=== PATIENT | female | born 1970 | race Caucasian/White ===

== ENCOUNTER → 2018-11-12 10:14 | Outpatient (CLI) | payer MEDICARE, SELFPAY ==
[2018-11-12 10:16] LABS: MANUAL DIFFERENTIAL MANUAL DIFFERENTIAL (MANUAL DIFF)
[2018-11-12 10:50] LABS: Basophils # 0.1 K/mm3 (0-0.2); Basophils % 0.9 % (0.1-2.0); Eosinophils # 0.1 K/mm3 (0.0-0.4); Eosinophils % 2.2 % (0.1-12.0); Hematocrit 38.9 % (37.0-47.0); Hemoglobin 12.3 g/dL (12.2-16.2); Lymphocytes # 1.4 K/mm3 (0.7-4.5); Lymphocytes % 24.7 % (10-50); Mean Corpuscular HGB Conc 31.7 g/dL (31.8-35.4); Mean Corpuscular Hemoglobin 31.3 pg (27.0-31.2); Mean Corpuscular Volume 98.7 fl (81-99); Monocytes # 0.4 K/mm3 (0.1-1.0); Monocytes % 6.4 % (1.7-9.3); Neutrophils # 3.8 K/mm3 (1.8-7.8); Neutrophils % 65.9 % (37.0-80.0); Platelet Count 312 K/mm3 (142-424); Red Blood Count 3.94 M/mm3 (4.20-5.40); Red Cell Distribution Width 13.1 % (11.5-17.5); White Blood Count 5.7 K/mm3 (4.8-10.8)
[2018-11-12 12:32] LABS: Thyroid Stimulating Hormone 1.54 uIU/ml (0.358-3.740)
[2018-11-12 13:21] LABS: Eosinophils % 1 % (0-3); Lymphocytes % 32 % (10-50); Monocytes % 5 % (2-9); Neutrophils % 60 % (42-76); Platelet Estimate Normal; RBC Morphology Normal; Total Cells Counted 100
== END ==
PROVIDERS: Visit Provider Obstetrics & Gynecology
DX: N93.8 Other specified abnormal uterine and vaginal bleeding (principal); R63.5 Abnormal weight gain
CPT/HCPCS: 36415; 84443; 85007; 85014; 85018; 85048; 85049

== ENCOUNTER → 2018-11-20 13:32 | Outpatient (CLI) | payer MEDICARE, SELFPAY ==
--- NOTE | 2018-11-20 13:34 | US_ITS ---
US transvaginal HISTORY: Dysfunctional uterine bleeding with cramping and pelvic pain ITS.REASON: dub ORDERING PHYSICIAN: Drew Morillo MD PATIENT AGE: 48 years Comparison: None FINDINGS: The uterus is retroverted and measures 9 x 5 x 6 cm. There are multiple nabothian cysts present. Combined and medial thickness is 8 mm. There is an area of heterogeneous echogenicity involving the anterior aspect of the uterus at 2.4 x 1.7 cm. An additional 2.2 x 1.7 cm area of decreased echogenicity is present involving the posterior aspect of the uterus. These areas are consistent with fibroids. The right ovary is 2.6 x 2 x 2.3 cm and has an unremarkable appearance. The left ovary is 0.7 x 3 x 0.8 cm and contains a 3.5 cm cyst. There is blood flow within both ovaries. No cul-de-sac fluid apparent. IMPRESSION: 1. Retroverted uterus containing 2 fibroids 2. 3.5 cm left ovarian cyst
== END ==
PROVIDERS: PCP Physician Assistant; Visit Provider Obstetrics & Gynecology
DX: N93.8 Other specified abnormal uterine and vaginal bleeding (principal)
CPT/HCPCS: 76830

== ENCOUNTER → 2020-03-18 14:56 | Outpatient (CLI) | payer MEDICARE, SELFPAY ==
--- NOTE | 2020-03-18 14:56 | MM_ITS ---
PROCEDURE: MM DIG SCREENING MAMM BI W/CAD Referring Doctor: Jagdeep Martínez Patient Age:49Y CLINICAL INDICATION: Routine Screening Mammogram 49-year-old Previous breast lift procedure bilateral-scars towards inferior breast and periareolar regions. No hormones no new complaints. Family history: Maternal grandmother and maternal great grandmother with breast cancer COMPARISON: MG Screening-Bilateral Mammography from 11/25/2018 outside mammogram [facility] TECHNIQUE: Standard CC and MLO images were obtained. R2 CAD reviewed. Bilateral digital breast tomosynthesis included. FINDINGS: Outside films from [place] or finally available in PACS for comparison A [id number] residual fibroglandular elements but mild asymmetry. Slightly nodular character of the underlying fibroglandular elements again observed. Right breast Right MLO view there is a new area of density seen inferior lateral-this is nicely seen on MLO and tomosynthesis image 28 axial 29 Small benign calcification grouping likely at skin upper-outer quadrant right breast Left breast None mm 9 mm ovoid density retroareolar region on MLO view is less evident on tomosynthesis view but I believe there is a density here either at the central breast or lateral breast on CC image set Recommend bilateral breast ultrasound and bilateral cc MLO spot views and full 90 degree view of breast on left to further evaluate these densities IMPRESSION: Recommend additional views bilaterally. Bilateral breast ultrasound with spot views bilateral Questionable areas of increasing nodularity in both right and left breast; which appear slight more evident on today's studies than previous available outside studies BI-RAD Category: 0 Need Additional Imaging Evaluation FOLLOW-UP: IMM Immediate Follow-up Recommended (A letter has been sent to the patient regarding results of the study.) Dictated by: Hoang Levine MD 04/07/2020 11:11 Hoang Levine MD in [place] 04/07/2020 11:11
--- NOTE | 2020-03-18 14:56 | US_ITS ---
PROCEDURE: US TRANSVAGINAL CLINICAL INDICATION: LLQP and cyst on left ovary COMPARISON: US TRANVAG US transvaginal from 11/20/2018 FINDINGS: UTERUS: 9cm x 6cmx 6cm with a combined endometrial thickness of 5.6mm LEFT OVARY: [id number] with a volume of 15ml. RIGHT OVARY: [id number] with a volume of 5.1ml. The uterus is retroverted. There is a hypoechoic area in the dorsal aspect of the uterus at the body of the uterus measuring 2.2 x 1.3 cm consistent with a fibroid not significantly changed. There is a hypoechoic area measuring 1.9 cm along the anterior aspect of the body of the uterus consistent with a fibroid. A hyperechoic area present in the anterior uterus at 3.7 cm also consistent with a fibroid. There is a 18 mm left ovarian cyst and a 12 mm right ovarian cyst which has a collapsed appearance. No cul-de-sac fluid evident. There are multiple nabothian cysts. IMPRESSION: Retroverted uterus with uterine fibroids and small bilateral ovarian cysts Dictated by: Matt Kimbrough MD 03/18/2020 18:11 Matt Kimbrough MD in [place] 03/18/2020 18:11
== END ==
PROVIDERS: PCP Physician Assistant; Visit Provider Nurse Practitioner Obstetrics & Gynecology
DX: Z12.31 Encounter for screening mammogram for malignant neoplasm of breast (principal); N83.202 Unspecified ovarian cyst, left side; R10.32 Left lower quadrant pain
CPT/HCPCS: 76830; 77063; 77067

== ENCOUNTER → 2020-04-19 14:31 | Outpatient (CLI) | payer MEDICARE, SELFPAY ==
--- NOTE | 2020-04-19 14:31 | MM_ITS ---
PROCEDURE: MM DIG MAMM BI DX W/CAD Digital Breast Tomosynthesis Included CLINICAL INDICATION: abnormal xmg COMPARISON: US TRANVAG US transvaginal from 11/20/2018 MG Screening-Bilateral Mammography from 11/25/2018 MG MM DIG SCREENING MAMM BI W/CAD from 03/18/2020 US US BREAST RT COMPLETE from 04/19/2020 US US BREAST LT COMPLETE from 04/19/2020 TECHNIQUE: Degree lateral views were obtained of the right breast along with spot compression MLO and CC views. Similar spot compression views in the MLO and CC projection were obtained of the left breast.. FINDINGS: The linear opacity right breast does not completely press out most likely represents a postsurgical scarring in view of history of the patient's previous surgical procedure. Ultrasound performed the same date showed no abnormality at this location. Additional views left breast suggest minimal postsurgical scarring near the nipple. Ultrasound examination shows couple of small cystic structures and postsurgical scarring near the nipple. IMPRESSION: Essentially benign findings consistent with patient's previous surgical procedures recommend the patient continue with yearly screening mammography BI-RAD Category: 2 Benign Finding(s) FOLLOW-UP: 1YR 1 Year Follow-up (A letter has been sent to the patient regarding results of the study.) Dictated by: Dr. Stuart Saul MD 05/03/2020 09:04 Dr. Stuart Saul MD in [place] 05/03/2020 09:04
--- NOTE | 2020-04-19 14:31 | US_ITS ---
PROCEDURE: US BREAST LT COMPLETE CLINICAL INDICATION: abnormal findings of imaging of the breast COMPARISON: Ultrasound right breast same date FINDINGS: There are small hypoechoic areas near the nipple which have the appearance of postsurgical scarring and corresponds in location to the visible postsurgical scar.. In addition there are couple of benign-appearing cystic lesions at the 6 o'clock position near the nipple. There are couple normal appearing nodes in the axilla. IMPRESSION: Benign postsurgical scarring along with couple tiny benign-appearing cysts and recommend the patient continue with yearly screening mammography Dictated by: Dr. Stuart Saul MD 05/03/2020 09:13 Dr. Stuart Saul MD in [place] 05/03/2020 09:13
--- NOTE | 2020-04-19 14:31 | US_ITS ---
PROCEDURE: US BREAST RT COMPLETE CLINICAL INDICATION: abnormal findings of imaging of the breast COMPARISON: US US BREAST LT COMPLETE from 04/19/2020 FINDINGS: There is a somewhat linear area of decreased echogenicity near the nipple at the 6 o'clock position and likely the location of the linear density on recent mammogram this likely represents postsurgical scarring. No other abnormality is seen in the circumareolar location. There are couple normal appearing nodes in the axilla. IMPRESSION: Minimal postsurgical scarring, no suspicious cystic or solid lesions seen recommend the patient continue with yearly screening mammography Dictated by: Dr. Stuart Saul MD 05/03/2020 09:09 Dr. Stuart Saul MD in [place] 05/03/2020 09:09
== END ==
PROVIDERS: PCP Physician Assistant; Visit Provider Nurse Practitioner Obstetrics & Gynecology
DX: R92.8 Other abnormal and inconclusive findings on diagnostic imaging of breast (principal)
CPT/HCPCS: 76641; 77062; 77066; G0279

== ENCOUNTER → 2020-07-03 10:11 | Outpatient (CLI) | payer MEDICARE, SELFPAY ==
[2020-07-03 12:34] LABS: Coronavirus 19 IgG Antibody Negative (Negative); Coronavirus 19 IgM Antibody Negative (Negative)
== END ==
PROVIDERS: Visit Provider Internal Medicine Gastroenterology
DX: Z01.812 Encounter for preprocedural laboratory examination (principal); Z20.822 Contact with and (suspected) exposure to COVID-19; Z12.11 Encounter for screening for malignant neoplasm of colon
CPT/HCPCS: 36415; 86328

== ENCOUNTER 2020-07-05 08:04 | Day surgery (SDC) | payer MEDICARE, SELFPAY ==
[2020-06-30 11:26] VITALS: BMI 35.2
[2020-07-05 08:47] VITALS: BP 165/89; PULSE 85; RESP 18; TEMP 36.7; O2SAT 98
[2020-07-05 09:11] LABS: Urine Pregnancy, HCG Qual. Negative (Negative)
[2020-07-05 09:30] VITALS: O2SAT 97
--- NOTE | 2020-07-05 10:02 | P.PCN_ITS ---
[facility] Procedure Note Procedure Note:: Colonoscopy Procedure Report: Colonoscopy with cold biopsies and cold snare polypectomy Endoscopist: Terell Sanchez II, MD Referring physician: Kayla Fowler PA-C/Jagdeep Martínez MD Date of Procedure: July 05, 2020 Equipment: Olympus 180 variable stiffness pediatric colonoscope Sedation: MAC sedation Indication: Mrs. Maya is a 49-year-old female who is here for initial screening colonoscopy. She reports no abdominal pain, weight loss, change in her bowel habits or rectal bleeding. She reports no family history of colon cancer. She does suspect that her mother has ulcerative colitis. Procedure: Prior to the procedure, a history and physical exam was performed, and patient's medications and allergies were reviewed. The risks, benefits and alternatives of the sedation and procedure were discussed with the patient. All questions were answered and informed consent was obtained. The patient was brought to the procedure room. Patient identification and proposed procedure were verified by the physician and the nurse. The patient was placed in a left lateral decubitus position and the scope was passed under direct vision. Throughout the procedure, the patient's blood pressure, pulse, and oxygen saturations were monitored continuously. The colonoscopy was accomplished without difficulty. The patient tolerated the procedure well. Findings: On digital rectal examination there was normal rectal tone. There were no external hemorrhoids. The colonoscope was introduced through the anal canal to the rectum and advanced to the cecum. The ileocecal valve and appendiceal orifice were identified. The scope was advanced a short distance into the ileum which appeared grossly normal. The scope was then withdrawn into the colon. The cecum had some superficial ulceration and cold biopsies were obtained. This appeared to be secondary to NSAIDs. There was a flat 8 to 9 mm polyp in the ascending colon removed via cold snare polypectomy. There were scattered diverticuli throughout the descending and sigmoid colon (LEFT colon). The rectum itself was normal. Upon retroflexion within the rectum there were grade 1-2 internal hemorrhoids. The preparation was excellent throughout with [place] Preparation Score of 9. The cecal time was 12 minutes. Impression: 1. Ascending colon polyp (8 to 9 mm?probable serrated adenoma) 2. Cecal superficial ulceration?rule out NSAIDs 3. Left-sided diverticulosis 4. Grade 1-2 internal hemorrhoids Plan: This polyp was a serrated adenoma and I will recommend repeat surveillance in 5 years. I will inquire about NSAID use. I would encourage bulk fiber supplementation on a maintenance basis.
[2020-07-05 10:03] VITALS: BP 99/57; PULSE 67; RESP 18; TEMP 36.3; O2SAT 95
[2020-07-05 10:13] VITALS: BP 106/65; PULSE 76; RESP 18; O2SAT 99
[2020-07-05 10:23] VITALS: BP 103/77; PULSE 72; RESP 18; O2SAT 99
--- NOTE | 2020-07-05 10:46 | HMH.ANESCL ---
[facility] Anesthesia Checklist - Patient Identification Patient Identification: Arm Band - Structural Data Admitted From: Home Planned Operative Procedure/s: colonoscopy Consent for Planned Operative Procedure(s) Verified: Yes Verified Documents: Surgical Consent, History and Physical - NPO Status Verified Time NPO: 00:00 - Additional verifications Anesthesia Reactions: No - Airway Assessment C-Spine Mobility Assessed: Yes (mp2) TMJ Mobility Assessed: Yes Dentition: Good Dentition - Neurological Assessment Level of Consciousness: Awake, Alert - Anesthesia Plan Anesthesia Risk discussed: Yes Anesthesia Plan: Verified ASA Class: II Anesthesia Type: MAC [facility] History I have reviewed the patient's past medical history: Yes Medical History: Reports:: Anxiety, Gastroesophageal Reflux Disease(GERD), Hypertension Denies:: Cancer, Diabetes Mellitus Type 1, Diabetes Mellitus Type 2, Internal Pacemaker, MRSA, Seizures *Have you ever received a pneumonia vaccine?: No *Have you received a flu vaccine this season?: Yes Other Medical History: Reports: Arthritis Anesthesia experience/problems:: nac Laterality Cases: Bilateral: Total Hip Replacement Other Surgeries: Yes: Cholecystectomy, , Tubal Ligation. No: Pacemaker Amputation: No Fractures: No - *Social History Last grade of school completed: Some college Smoking Status: Never smoker Alcohol Intake: never Alcohol Intake Frequency:: other Substance Use Type: denies use *Occupational Status:: unemployed Housing: house Household Members: family *Travel in the last 8 weeks: None Family Hx:: No significant family history
[2020-07-05 10:54] VITALS: BP 113/72; PULSE 64; RESP 18; O2SAT 97
== END 2020-07-05 10:55 | disposition home or self-care (01) ==
LOC: OUTP 08:06
PROVIDERS: PCP Physician Assistant; Visit Provider Internal Medicine Gastroenterology
PROC: 0DJD8ZZ Inspection of Lower Intestinal Tract, Via Natural or Artificial Opening Endoscopic (ICD-10-PCS; CPT 45378; principal; 2020-07-05 09:30)
DX: Z12.11 Encounter for screening for malignant neoplasm of colon (principal); K63.5 Polyp of colon; K63.3 Ulcer of intestine; K57.30 Diverticulosis of large intestine without perforation or abscess without bleeding; K64.0 First degree hemorrhoids; I10 Essential (primary) hypertension; K21.9 Gastro-esophageal reflux disease without esophagitis; F41.9 Anxiety disorder, unspecified; M19.90 Unspecified osteoarthritis, unspecified site; Z88.6 Allergy status to analgesic agent; Z88.8 Allergy status to other drugs, medicaments and biological substances; Z79.899 Other long term (current) drug therapy
CPT/HCPCS: 45380; 45385; 81025; 88305

== ENCOUNTER → 2021-09-28 12:49 | Outpatient (CLI) | payer MEDICARE, SELFPAY ==
--- NOTE | 2021-09-28 12:56 | XR_ITS ---
FINAL REPORT CLINICAL HISTORY: osteoarthritis FINDINGS: AP, lateral and oblique views of the left knee were obtained. There is no prior exam for comparison. There is no acute osseous abnormality of the left knee. There is degenerative joint disease, most pronounced in the medial compartment. The soft tissues are normal. There is a small joint effusion. IMPRESSION: Degenerative joint disease and small joint effusion. Reviewed, Interpreted and Dictated by Paula Shine MD Transcribed by Bridget Parr Authenticated by Paula Shine MD on 09/28/2021 02:37:28 PM [facility]
--- NOTE | 2021-09-28 12:56 | XR_ITS ---
FINAL REPORT CLINICAL HISTORY: osteoarthritis FINDINGS: AP, lateral and oblique views of the right knee were obtained. There is no prior exam for comparison. There is no acute osseous abnormality of the right knee. There is degenerative joint disease, most pronounced in the medial compartment. The soft tissues are normal. There is no joint effusion. IMPRESSION: Degenerative joint disease. Reviewed, Interpreted and Dictated by Paula Shine MD Transcribed by Bridget Parr Authenticated by Paula Shine MD on 09/28/2021 02:39:24 PM [facility]
== END ==
PROVIDERS: PCP Nurse Practitioner Family; Visit Provider Pain Medicine Interventional Pain Medicine
DX: M17.0 Bilateral primary osteoarthritis of knee (principal)
CPT/HCPCS: 73562

== ENCOUNTER → 2022-05-18 09:13 | Outpatient (CLI) | payer MEDICARE, SELFPAY ==
--- NOTE | 2022-05-18 09:16 | US_ITS ---
FINAL REPORT TECHNIQUE: Ultrasound images of the kidneys and bladder were obtained. CLINICAL HISTORY: FLANK PAIN FINDINGS: The right kidney measures 10.4 cm in length. It is normal in echogenicity. There is no hydronephrosis. The left kidney measures 9.8 cm in length. It is normal in echogenicity. There is no hydronephrosis. The spleen is unremarkable. IMPRESSION: No acute process. Reviewed, Interpreted and Dictated by Zaid Nguyen III, MD Transcribed by Bridget Parr Authenticated and . [facility]
== END ==
PROVIDERS: PCP Nurse Practitioner Family; Visit Provider Nurse Practitioner Family
DX: R10.9 Unspecified abdominal pain (principal)
CPT/HCPCS: 76770

== ENCOUNTER → 2022-11-23 08:11 | Outpatient (CLI) | payer MEDICARE, SELFPAY ==
--- NOTE | 2022-11-23 08:21 | US_ITS ---
FINAL REPORT TECHNIQUE: Sonographic images of the right upper quadrant were obtained. CLINICAL HISTORY: FATTY LIVER FINDINGS: PANCREAS: Unremarkable. LIVER: There is fatty infiltration of the liver. No focal hepatic lesion. No intrahepatic biliary ductal dilatation. GALLBLADDER: The gallbladder is absent. COMMON DUCT: 8 mm. Likely due to postcholecystectomy change. RIGHT KIDNEY: The right kidney measures 9.9 cm. There is no hydronephrosis, mass, or stone. FREE FLUID: None. IMPRESSION: Fatty liver Reviewed, Interpreted and Dictated by Paula Shine MD Transcribed by Bridget Parr Authenticated and . [facility]
--- NOTE | 2022-11-23 08:22 | MM_ITS ---
PROCEDURE INFORMATION: Exam: MG Bilateral Screening 3D Mammography Exam date and time: 11/23/2022 8:16 AM Age: 52 years old Clinical indication: Screening examination TECHNIQUE: Imaging protocol: Bilateral Screening tomosynthesis and 2D mammography including computer-aided detection (CAD) when performed. COMPARISON: 1. MG MM DIG MAMM BI DX W/CAD 04/19/2020 2:53 PM 2. MG MM DIG SCREENING MAMM BI W/CAD 03/18/2020 3:00 PM FINDINGS: MAMMOGRAPHY: Breast composition: There are scattered areas of fibroglandular density. Mass: None. Architectural distortion: None. Calcifications: No suspicious calcifications. Asymmetric density: None. Skin thickening: None. Axillary adenopathy: None. IMPRESSION: No mammographic evidence of malignancy. Annual screening is recommended unless otherwise clinically indicated. ASSESSMENT: BI-RADS Category 1: Negative
== END ==
PROVIDERS: PCP Nurse Practitioner Family; Visit Provider Nurse Practitioner Family
DX: Z12.31 Encounter for screening mammogram for malignant neoplasm of breast (principal); K76.0 Fatty (change of) liver, not elsewhere classified
CPT/HCPCS: 76705; 77063; 77067

== ENCOUNTER 2023-05-18 16:56 | Outpatient (CLI) | payer MEDICARE, SELFPAY | END 2023-05-18 23:59 | LOC: LAB.DROPOF 16:57 | PROVIDERS: PCP Nurse Practitioner Family; Visit Provider Nurse Practitioner Family | DX: R09.81 Nasal congestion (principal); R05.9 Cough, unspecified; J02.9 Acute pharyngitis, unspecified; R51.9 Headache, unspecified; J20.9 Acute bronchitis, unspecified; R22.1 Localized swelling, mass and lump, neck; M54.2 Cervicalgia; R05.1 Acute cough | CPT/HCPCS: 87070; 87635 ==

== ENCOUNTER 2024-06-17 10:40 | Outpatient (CLI) | payer MEDICARE, SELFPAY ==
--- NOTE | 2024-06-17 10:44 | MM_ITS ---
PROCEDURE INFORMATION: Exam: MG Bilateral Screening 3D Mammography Exam date and time: 06/17/2024 11:03 AM Age: 53 years old Clinical indication: Screening examination. Her grandmother and great grandmother had breast cancer. TECHNIQUE: Imaging protocol: Bilateral Screening tomosynthesis and 2D mammography including computer-aided detection (CAD) when performed. COMPARISON: 1. MG MM DIG SCREENING MAMM BI W/CAD 11/23/2022 8:16 AM 2. MG MM DIG MAMM BI DX W/CAD 04/19/2020 2:53 PM 3. MG MM DIG SCREENING MAMM BI W/CAD 03/18/2020 3:00 PM 4. MG Screening-Bilateral Mammography 11/25/2018 2:12 PM FINDINGS: MAMMOGRAPHY: Breast composition: There are scattered areas of fibroglandular density. Mass: No suspicious mass. Architectural distortion: None. Calcifications: No suspicious calcifications. Asymmetric density: None. Skin thickening: None. Axillary adenopathy: None. IMPRESSION: No mammographic evidence of malignancy. Annual screening is recommended unless otherwise clinically indicated. ASSESSMENT: BI-RADS Category 1: Negative.
== END 2024-06-17 23:59 | disposition home or self-care (01) ==
LOC: RAD 10:41
PROVIDERS: PCP Nurse Practitioner Family; Visit Provider Physician Assistant
DX: Z12.31 Encounter for screening mammogram for malignant neoplasm of breast (principal)
CPT/HCPCS: 77063; 77067

== ENCOUNTER 2025-04-21 11:51 | Outpatient (CLI) | payer MEDICARE, SELFPAY ==
--- OUTSIDE RECORDS SUMMARY | 2024-02-28 06:00 | XMS_ITS ---
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 Role Phone Akash Gonzalez II Unavailable [facility] [facility], My Unavailab le Unavailable REASON FOR VISIT 2 Month Follow Up Encounters Encounter Location Date Provider Diagnosis [facility] [address] [place] [address] 02/28/2024 Akash Gonzalez Plan Of Treatment Next Appt Details Provider Name:Akash gutierrez, 04/28/2025 11:30:00 AM, [address], [place], [address], Progress Notes * Glendy GONZALEZDOB:1970 (54 yo F)Acc No.[id number]:02/28/2024 FollowUP Patient: Dalia Glendy BURNETTE Provider: Cinthia Gonzalez II, M.D. :1970 A ge:53 Y S ex:Female Date:02/28/2024 Address:[address] [id number] Subjective: * Chief Complaints: * 1 . 2 Month Follow Up. * Medical History: Objective: * Vitals: Assessment: Plan: * Treatment: * * Electronic signature of Ez Gonzalez II, M.D. on 04/22/2025 at 06:44 PM [employer] OF KIDS Sign off status: Pending * Provider: Cinthia Gonzalez II, M.D. Date: 1 Generated for Frantz huff/Anthony/Lucio on: 06/23/2024 06:44 PM [employer] OF KIDS
--- OUTSIDE RECORDS SUMMARY | 2025-03-03 06:15 | XMS_ITS ---
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 -[facility], My Unavailab le Unavailable Allergies Allergen (clinical drug ingredient) Drug/Non Drug Allergy documented on EMR Reaction Allergy Type Onset Date Status lisinopril lisinopril hives Drug Allergy Activ e leflunomide leflunomide stomach upset Drug Allergy Active hydrocodone hives Drug Allergy Activ e Results Component Value Reference Range Notes Urine Test ANALYZER Reviewed date:03/04/2025 07:08:54 AM Interpretation:ALL NEG Performing Lab: Notes/Report: ALL NEG Amphetamine (AMP) NEG Benzodiazepine (YAMILKA) NEG Methadone (MTD) NEG Opiate (OPI) NEG REASON FOR VISIT Knee Pain Medications Medication SIG (Take, Route, Frequency, Duration) Notes Start Date End Date Status Xeljanz XR 11 mg TAKE 1 TABLET BY MOUTH ONCE DAILY; Duration: 30 Active DULoxetine 60 mg 1 cap(s) orally once a day; Duration: 30 day(s) 07/29/2020 Active cyclobenzaprine 10 mg 1 tab(s) orally 3 times a day 07/29/2020 Active traZODone 50 mg as directed orally 03/20/2022 Active losartan 100 mg ; Duration: 30 Active metoprolol 100 mg 1 tab(s) orally once a day; Duration: 30 day(s) Active Vraylar 1.5 mg 1 cap(s) orally once a day Active celecoxib 200 mg TAKE 1 CAPSULE BY MOUTH ONCE DAILY; Duration: 90 Active Vitamin D3 2000 intl units as directed o rally once a day; Duration: 30 day(s) Active hydroCHLOROthiazide 25 mg TAKE 1 TABLET BY MOUTH ONCE DAILY IN THE MORNING; Duration: Active OxyCODONE Hydrochloride 5 mg 1 tab(s) orally 3 times a day; Duration: 28 days December 2024 rx DO NOT FILL SOONER THAN 28 DAYS, (OK TO FILL EARLY, ONLY IF CLOSED) Active OxyCODONE Hydrochloride 5 mg 1 tab(s) orally 3 times a day; Duration: 28 days November DO NOT FILL SOONER THAN 28 DAYS, (OK TO FILL EARLY, ONLY IF CLOSED) Active Vital Signs Blood pressure systolic 140 mm Hg 03/03/20 25 Blood pressure diastolic 96 mm Hg 025 Heart Rate 68 /min 03/03/2025 Height 67 in 03/03/2025 Weight 184 lbs 03/03/2025 BMI 28.82 kg/m2 03/03/2025 Encounters Encounter Location Date Provider Diagnosis [facility] [address] [place] [address] 03/03/2025 Akash Gonzalez Spondylosis without myelopathy or radiculopathy, 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 ; Other intermediate (current) drug therapy Z79.899 ; Rheumatoid arthritis with rheumatoid factor, unspecified M05.9 ; cervical radiculopathy M54.12 ; Spondylosis without myelopathy or radiculopathy, lumbar region M47.816 ; Other fecal abnormalities R19.5 and Bilateral primary osteoarthritis of knee M17.0 Assessments Encounter Date Diagnosis (ICD Code) Assessment Notes Treatment Notes Treatment Clinical Notes Section Notes 03/03/2025 Spondylosis without myelopathy or radiculopathy, cervicothoracic region (ICD-10 - M47.813) 03/03/2025 The patient presents to the [facility] office in [place], [place] for an audio-telemedici ne visit. The patient was evaluated by the medical billing supervisor and a urine drug screen was obtained as well as vital signs. Patient consented to telemed visit. Glendy presents for follow up visit and medication refill. She has cervical spine pain with LUE radiculopathy, as well as rheumatoid arthritis. She is supplementing pain meds with tylenol at night. She is s/p RFA AB RFA L3/L4/L5 with great relief. Today she also reports left knee pain and states that she is using topical applications of Aspercreme plus lidocaine successfully. She is s/p #4 left knee IA injection and only reports 50% relief for 3 weeks. She is currently taking oxycodone HCl 5mg TID with some relief and she denies any adverse side effects. No recent changes reported. Harvey and UDS have been reviewed and are compliant. Medication refill and F/u in 2 months. 03/03/2025 Other intermediate (current) drug therapy (ICD-10 - Z79.899) 03/03/2025 1 Refill oxycocone HCl 5mg TID 2 F/U 2 months with MD 03/03/2025 The patient presents to the [facility] office in [place], [place] for an audio-telemedici ne visit. The patient was evaluated by the medical billing supervisor and a urine drug screen was obtained as well as vital signs. Patient consented to telemed visit. Glendy presents for follow up visit and medication refill. She has cervical spine pain with LUE radiculopathy, as well as rheumatoid arthritis. She is supplementing pain meds with tylenol at night. She is s/p RFA AB RFA L3/L4/L5 with great relief. Today she also reports left knee pain and states that she is using topical applications of Aspercreme plus lidocaine successfully. She is s/p #4 left knee IA injection and only reports 50% relief for 3 weeks. She is currently taking oxycodone HCl 5mg TID with some relief and she denies any adverse side effects. No recent changes reported. Harvey and UDS have been reviewed and are compliant. Medication refill and F/u in 2 months. 03/03/2025 Rheumatoid arthritis with rheumatoid factor, unspecified (ICD-10 - M05.9) 03/03/2025 The patient presents to the [facility] office in [place], [place] for an audio-telemedici ne visit. The patient was evaluated by the medical billing supervisor and a urine drug screen was obtained as well as vital signs. Patient consented to telemed visit. Glendy presents for follow up visit and medication refill. She has cervical spine pain with LUE radiculopathy, as well as rheumatoid arthritis. She is supplementing pain meds with tylenol at night. She is s/p RFA AB RFA L3/L4/L5 with great relief. Today she also reports left knee pain and states that she is using topical applications of Aspercreme plus lidocaine successfully. She is s/p #4 left knee IA injection and only reports 50% relief for 3 weeks. She is currently taking oxycodone HCl 5mg TID with some relief and she denies any adverse side effects. No recent changes reported. Harvey and UDS have been reviewed and are compliant. Medication refill and F/u in 2 months. 03/03/2025 cervical radiculopathy (ICD-10 - M54.12) 03/03/2025 The patient presents to the [facility] office in [place], [place] for an audio-telemedici ne visit. The patient was evaluated by the medical billing supervisor and a urine drug screen was obtained as well as vital signs. Patient consented to telemed visit. Glendy presents for follow up visit and medication refill. She has cervical spine pain with LUE radiculopathy, as well as rheumatoid arthritis. She is supplementing pain meds with tylenol at night. She is s/p RFA AB RFA L3/L4/L5 with great relief. Today she also reports left knee pain and states that she is using topical applications of Aspercreme plus lidocaine successfully. She is s/p #4 left knee IA injection and only reports 50% relief for 3 weeks. She is currently taking oxycodone HCl 5mg TID with some relief and she denies any adverse side effects. No recent changes reported. Harvey and UDS have been reviewed and are compliant. Medication refill and F/u in 2 months. 03/03/2025 Spondylosis without myelopathy or radiculopathy, lumbar region (ICD-10 - M47.816) 03/03/2025 The patient presents to the [facility] office in [place], [place] for an audio-telemedici ne visit. The patient was evaluated by the medical billing supervisor and a urine drug screen was obtained as well as vital signs. Patient consented to telemed visit. Glendy presents for follow up visit and medication refill. She has cervical spine pain with LUE radiculopathy, as well as rheumatoid arthritis. She is supplementing pain meds with tylenol at night. She is s/p RFA AB RFA L3/L4/L5 with great relief. Today she also reports left knee pain and states that she is using topical applications of Aspercreme plus lidocaine successfully. She is s/p #4 left knee IA injection and only reports 50% relief for 3 weeks. She is currently taking oxycodone HCl 5mg TID with some relief and she denies any adverse side effects. No recent changes reported. Harvey and UDS have been reviewed and are compliant. Medication refill and F/u in 2 months. 03/03/2025 Other fecal abnormalities (ICD-10 - R19.5) 03/03/2025 The patient presents to the [facility] office in [place], [place] for an audio-telemedici ne visit. The patient was evaluated by the medical billing supervisor and a urine drug screen was obtained as well as vital signs. Patient consented to telemed visit. Glendy presents for follow up visit and medication refill. She has cervical spine pain with LUE radiculopathy, as well as rheumatoid arthritis. She is supplementing pain meds with tylenol at night. She is s/p RFA AB RFA L3/L4/L5 with great relief. Today she also reports left knee pain and states that she is using topical applications of Aspercreme plus lidocaine successfully. She is s/p #4 left knee IA injection and only reports 50% relief for 3 weeks. She is currently taking oxycodone HCl 5mg TID with some relief and she denies any adverse side effects. No recent changes reported. Harvey and UDS have been reviewed and are compliant. Medication refill and F/u in 2 months. 03/03/2025 Bilateral primary osteoarthritis of knee (ICD-10 - M17.0) 03/03/2025 The patient presents to the [facility] office in [place], [place] for an audio-telemedici ne visit. The patient was evaluated by the medical billing supervisor and a urine drug screen was obtained as well as vital signs. Patient consented to telemed visit. Glendy presents for follow up visit and medication refill. She has cervical spine pain with LUE radiculopathy, as well as rheumatoid arthritis. She is supplementing pain meds with tylenol at night. She is s/p RFA AB RFA L3/L4/L5 with great relief. Today she also reports left knee pain and states that she is using topical applications of Aspercreme plus lidocaine successfully. She is s/p #4 left knee IA injection and only reports 50% relief for 3 weeks. She is currently taking oxycodone HCl 5mg TID with some relief and she denies any adverse side effects. No recent changes reported. Harvey and UDS have been reviewed and are compliant. Medication refill and F/u in 2 months. Plan Of Treatment Medication Medication Name Sig Start Date Stop Date Notes OxyCODONE Hydrochloride 5 mg 1 tab(s) orally 3 times a day; Duration: 28 days December 2024 rx DO NOT FILL SOONER THAN 28 DAYS, (OK TO FILL EARLY, ONLY IF CLOSED) OxyCODONE Hydrochloride 5 mg 1 tab(s) orally 3 times a day; Duration: 28 days November DO NOT FILL SOONER THAN 28 DAYS, (OK TO FILL EARLY, ONLY IF CLOSED) Treatment Notes Assessment Notes Other reconciliation accountant (current) drug therapy 03/03/2025 1 Refill oxycocone HCl 5mg TID 2 F/U 2 months with MD Dodson Appt Details Follow Up: 2 Months, Reason: Provider Name:Akash gutierrez, 04/28/2025 11:30:00 AM, [address], [address], [address], Procedure Notes * Category Sub-Category Detail Notes PROVIDER ENCOUNTER AND OVERSIGHT Consult Performed By: AngelinaP-WAYNE)Odilia 03/09/2025 12:43:22 PM EST > collaborated treatment plan with Akash angelo M.D., supervising physician Progress Notes * Glendy GONZALEZDOB:1970 (54 yo F)Acc No.[id number]:03/03/2025 Patient: Glendy ALAN Provider: Cinthia Gnozalez II, M.D. :1970 A ge:54 Y S ex:Female Date:03/03/2025 Address:[address], [address] [id number] Subjective: * Chief Complaints: * K nee Pain * HPI: T ODAYS PAIN EVALUATION: 54 year old female presents with c/o MEDICATION FOLLOW UP: T he patient is currently prescribed O xycodone 5 /325mg TID, which provides 50% relief of pain symptoms for 4 hours. The last dose was taken 03/03/2025 Denies any side effects. CURRENT PAIN SYMPTOMS: L ocation of Worst Pain: K nee(s) lt, P ain Frequency: f luctuating, usually, P ain Description: s harp, stabbing,?Average Pain Score VAS: 8 , P ain Exacerbation: walking ,cleaning, P ain Alleviation: m edications rest, , Heating pad,massage, A DL/Quality of Life Interference: walking, sitting,cleaning. P AIN MANAGEMENT TREATMENT HISTORY: IMAGING HISTORY: 12/11/2018 XR CERVICAL:Chronic appearing findings. consider MRI if symptoms persist. 06/07/2019 XR CERVICAL:Significant degenerative disc Disease and facet arthritis at C5-6 and C6-7 consistent with cervical degnerative arthritis 06/26/2019 MRI CERVICAL:Degenerative disc disease and facet disease. The most likely etiology for the patient's left sided radiculopathy is at C6-7 where there is central to left-sided disc protrusion/herniation with exiting nerve root compression 08/21/2019 MRI LUMBAR:Mild-moderate DDD at L4-5, mild central canal stenosis, mild-moderate RT and mild LF NF stenosis 04/26/2022 DEXA scan:She has bilateral THR's. There is normal bone density of the right forearm with no comparison to previous. There is normal bone density of the LS spine with a 0.4% loss since 2019. Her risk factors are a non-traumatic fracture as an adult, a parent with a hip fracture, steroids in the last 3 months and Rheumatoid arthritis . P REVIOUS INJECTION\PROCEDURE HISTORY: 07/04/2019#1 CMBB LT C5,C6,C7 90% relief for 3 days 09/23/2019#1 TIFFANIE C6-C7 60%relief for 2 weeks 10/17/2019#2 TIFFANIE C6-C7 no relief 12/16/2019#2 LT CMBB C5,C6,C7 80% relief for 2 days 01/06/2020#1 LT RFA C5,C6,C7 75% relief for 2 months 03/16/2020#1 LMBB LT L3,4,5 80% relief for 2 days 04/06/2020#2 LMBB LT L3,4,5 80% relief for 2 days 05/27/2020# 1 RFA LT L3,4,5- 90% pain relief for 6 months 1RFA LT L3,L4,L5 75% relief for 6 months 07/01/2021#1 CMBB LT C3,C4,C5 W/SED 80% relief for 1 day 07/15/2021#2 CMBB LT C3,C4,C5 80% relief for 1 day 2RFA LT C3,C4,C5 75% relief for 8 months 10/12/2021LT Knee IA with 80% relief for 1 month 01/04/2022#2 LT Knee IA 90% relief for 4 months 06/05/2022#3 LT Knee 80% relief for 2 days 03/12/2023#1 LMBB AB L3, L4, L5 90% relief for 1 day 04/02/2023#2 LMBB AB L3, L4, L5 80% relief for 5 days 4RFA AB L3, L4, L5 80% relief for 7 months 11/01/2023#1 LT Knee IA 75% relief for 3 months 01/19/2025#1 LT Knee IA 5 0% relief for 3 weeks . P HYSICAL/AQUA THERAPY/DME/OTHER HISTORY: P atient continues a prescribed home exercise program 3-5 times per week 03/03/2025. P ERTINENT SURGICAL EVALUATIONS/SPECIALIST CONSULTS? Seen 07/16/[address] Puga, who recommends TIFFANIE x2. He ordered EMG/NCS of LUE. Consider ACDF C5-7 . P REVIOUS PAIN CLINIC CARE: Laura GARCIA OF INITIAL EVALUATION: 06/23/2019- New patient consults referred by My Rdz APRN for chronic pain. She reports a 6-7 year history of neck pain which was primarily been managed with anti-inflammatories and tramadol. She has rheumatoid arthritis which is complicated her pain picture last 8 years. She has obtained x-rays of the cervical spine which does reveal severe arthropathy in the lower cervical region inclusive of this EEG through 7. She does have an MRI of the cervical spine scheduled for this week. Symptomatically she reports that flexion, extension and lateral rotation of her head all cause her pain to increase. She states that the pain has increased to the point that it is interfering with most all of her activities of daily living. We discussed options regarding injection therapy specifically cervical medial branch blocks on the right side. From C4-C7. Risks and benefits of the procedure were described the patient is interested in pursuing that. Medication-hoskins. We will add [place] 7.5/325 one by mouth 4 times a day when necessary. Hopefully this will give her the needed for 5 hours daily of pain relief. She needs to tolerate activities of daily living. [place] and UDS were reviewed today. Opioid risk assessment is low.. C OMPLIANCE: RISK ASSESSMENT AND STRATIFICATION: RISK GROUP: MODERATE RISK Due to: Depression . U RINE DRUG TESTIN03/03/2024 Screen Unexpected(+AMP) Definitive Expected 05/01/2024 Screen Expected 07/01/2024 Screen Expected 09/02/2024 Screen Expected, Definitive Expected 10/31/2024 Screen Unexpected (+AMP), Sent for Definitive 01/01/2025 Screen Expected 03/03/2025,Screen Unexpected (neg), Sent for Definitive. M ONITORING: Morphine Equivalent (MME): 15 mg HARVEY reviewed today and appropriate . T ESTING/RISK ASSESSMENTS ORT Score/Result: 1(Depression). * ROS: G ENERAL: Fever D enies. H EENT: Sore throat D enies. C ARDIOVASCULAR: Positive for d enies cardiovascular symptoms. ? R ESPIRATORY: Positive for d enies respiratory issues. G ASTROINTESTINAL: Positive for d enies abdominal issues. G ENITOURINARY: Positive for d enies genitourinary issues. M USCULOSKELETAL: Positive for j oint pain. swelling. stiffness. ? N EUROLOGICAL: Positive for d enies neurological issues. P SYCHIATRIC: Positive for d epression. E NDOCRINE: Positive for d enies endocrine issues. * Medical History: * Surgical History: H ip Replacement / hospital / overnight stay [facility] 2018colonoscopy / [facility] / (OP) 07/05/2020Gallbladder / [facility] / (OP) Section / [facility] / 3 day stay 1985 * Hospitalization/Major Diagno stic Procedure: N o Hospitalization History. * Family History: Denies Family History of Substance Abuse. * Social History: S moking: no C igarettes Nonsmoker. P ersonal History Drug Use: No, Denies. Alcohol: No, Denies. * Medications: T akingVraylar 1.5 mg capsule 1 cap(s) orally once a day metoprolol 100 mg tablet, extended release 1 tab(s) orally once a day Vitamin D3 2000 intl units tablet as directed orally once a day celecoxib 200 mg capsule TAKE 1 CAPSULE BY MOUTH ONCE DAILY hydroCHLOROthiazide 25 mg tablet TAKE 1 TABLET BY MOUTH ONCE DAILY IN THE MORNING Xeljanz XR 11 mg tablet, extended release TAKE 1 TABLET BY MOUTH ONCE DAILY cyclobenzaprine 10 mg tablet 1 tab(s) orally 3 times a day DULoxetine 60 mg delayed release capsule 1 cap(s) orally once a day losartan 100 mg tablet traZODone 50 mg tablet as directed orally OxyCODONE Hydrochloride 5 mg tablet 1 tab(s) orally 3 times a day Taking Vraylar 1.5 mg capsule 1 cap(s) orally once a day Taking metoprolol 100 mg tablet, extended release 1 tab(s) orally once a day Taking Vitamin D3 2000 intl units tablet as directed orally once a day Taking celecoxib 200 mg capsule TAKE 1 CAPSULE BY MOUTH ONCE DAILY Taking hydroCHLOROthiazide 25 mg tablet TAKE 1 TABLET BY MOUTH ONCE DAILY IN THE MORNING Taking Xeljanz XR 11 mg tablet, extended release TAKE 1 TABLET BY MOUTH ONCE DAILY Taking cyclobenzaprine 10 mg tablet 1 tab(s) orally 3 times a day Taking DULoxetine 60 mg delayed release capsule 1 cap(s) orally once a day Taking losartan 100 mg tablet Taking traZODone 50 mg tablet as directed orally Taking OxyCODONE Hydrochloride 5 mg tablet 1 tab(s) orally 3 times a day Not-TakingOxyCODONE Hydrochloride 5 mg tablet 1 tab(s) orally 3 times a day Not-Taking OxyCODONE Hydrochloride 5 mg tablet 1 tab(s) orally 3 times a day * Allergies: h ydrocodone: hives - Allergylisinopril: hives - Allergyleflunomide: stomach upset - Side Effectsno[Allergies Verified] Objective: * Vitals: B P: 140/96, HR: 68, Pain VAS (0-10): 8, Ht: 67, Wt: 184, BMI:28.82Index. * Examination: G eneral Examination: Nurse/Social Services Aide: Michelle jalloh[facility] Glendy 03/03/2025 11:14:51 AM EDT >. General Appearance: w ell-nourished individual in no acute distress. The patient is alert and oriented and cooperative for evaluation. HEENT: unremarkable. Neck, Thyroid : supple. Heart: regular rate. Neurologic Exam: P atient ambulates with an antalgic gait, pitched forward. Skin normal, no rash. Extremities: no clubbing, no edema. ? L umbar Spine/Lower Back: Palpation: diffuse tenderness throughout lumbar region, most particularly over lower lumbar facet joints. Spasms absent. Inspection: Spinal alignment no abnormal curvature noted.? Straight leg raising test: negative bilaterally. Sensory exam: s ensation intact to light touch throughout bilateral lower extremities, no edema or discoloration noted. Motor system: m otor strength 5/5 in all muscle groups bilaterally. Range of motion: R OM moderately limited, moderate pain induced. Hyperextension - Pain with Facet loading. C ervical Spine/Neck: Motor strength: m otor strength symmetric and 5/5, DTRs symmetric and 2+/4. Paraspinal muscle spasm: D iffuse tenderness with spasms noted. Sensations: s ensation intact to light palpation, FROM, pulses +2. Vertebral spine tenderness: tenderness over the upper facets bilaterally at the C2,3,4 facets. Range of motion of neck: R OM moderately limited ROM particularly w/ bilateral rotation, moderate pain induced. Inspection: n o surgical scars. K nee / Rizzo: Knee: B ILATERAL. Inspection: no swelling or redness. Crepitus tenderness on medial jointline. Collateral ligaments: intact medially and laterally. Range of motion: painful movements. Patellofemoral joint: crepitations with movement bilaterally. Assessment: * Assessment: 1. O ther intermediate (current) drug therapy - Z79.899 (Primary) 2 . S pondylosis without myelopathy or radiculopathy, cervicothoracic region - M47.813 3 . R heumatoid arthritis with rheumatoid factor, unspecified - M05.9 4 . c ervical radiculopathy - M54.12 5 . S pondylosis without myelopathy or radiculopathy, lumbar region - M47.816 6 . O ther fecal abnormalities - R19.5 7 .?Bilateral primary osteoarthritis of knee - M17.0 03/03/2025 The patient presents to the [facility] office in [place], [place] for an audio-telemedicine visit. The patient was evaluated by the medical billing supervisor and a urine drug screen was obtained as well as vital signs. Patient consented to telemed visit. Glendy presents for follow up visit and medication refill. She has cervical spine pain with LUE radiculopathy, as well as rheumatoid arthritis. She is supplementing pain meds with tylenol at night. She is s/p RFA AB RFA L3/L4/L5 with great relief. Today she also reports left knee pain and states that she is using topical applications of Aspercreme plus lidocaine successfully. She is s/p #4 left knee IA injection and only reports 50% relief for 3 weeks. She is currently taking oxycodone HCl 5mg TID with some relief and she denies any adverse side effects. No recent changes reported. Harvey and UDS have been reviewed and are compliant. Medication refill and F/u in 2 months. Plan: * Treatment: Value Reference Range A mphetamine (AMP) NEG * B enzodiazepine (YAMILKA) NEG * M ethadone (MTD) NEG * O piate (OPI) NEG * Maryjane Jarquin 03/03/2025 11:28 :04 AM EDT >Brian(CASANDRA-WAYNE)Odilia 03/03/2025 04:11:45 PM EDT > (Confirm Opioids) Send specimen for definitive testing on Buprenorphine, Fentanyl, Opiates, Opioid Antagonist, Heroin,Methadone drug classes Patient is prescribed an Opioid and the preliminary urine drug screen is negative for Opiates/Morphine. The patient reports taking the medication within the last 48- 72 hours. Send for confirmation as this may be a false negative Notes: 03/03/2025 1 Refill oxycocone HCl 5mg TID 2 F/U 2 months with ?? * Procedures: Jamey SOOD ENCOUNTER AND OVERSIGHT: Consult Performed By: Silverio-WAYNE)Odilia 03/09/2025 12:43:22 PM EST >. c ollaborated treatment plan with Cinthia Gonzalez M.D., supervising physician. * Procedure Codes: * Follow Up: 2 Months * * TENANCE PAINTER APPRENTICE Sign off status: Completed true * Provider: Cinthia Gonzalez II, M.D. Date: Generated for Frantz huff/Anthony/Lucio on: 06/23/2024 06:44 PM MAINTENANCE PAINTER APPRENTICE History and Physical Notes * HPI (History of Present Illness) Category Sub-Category Detail Notes Category Not es PAIN MANAGEMENT TREATMENT HISTORY SUMMARY OF INITIAL EVALUATION: 06/23/2019- New patient consults referred by My Rdz APRN for chronic pain. She reports a 6-7 year history of neck pain which was primarily been managed with anti-inflammatories and tramadol. She has rheumatoid arthritis which is complicated her pain picture last 8 years. She has obtained x-rays of the cervical spine which does reveal severe arthropathy in the lower cervical region inclusive of this EEG through 7. She does have an MRI of the cervical spine scheduled for this week. Symptomatically she reports that flexion, extension and lateral rotation of her head all cause her pain to increase. She states that the pain has increased to the point that it is interfering with most all of her activities of daily living. We discussed options regarding injection therapy specifically cervical medial branch blocks on the right side. From C4-C7. Risks and benefits of the procedure were described the patient is interested in pursuing that. Medication-hoskins. We will add [place] 7.5/325 one by mouth 4 times a day when necessary. Hopefully this will give her the needed for 5 hours daily of pain relief. She needs to tolerate activities of daily living. Patricio and UDS were reviewed today. Opioid risk assessment is low. IMAGING HISTORY: 12/11/2018 XR CERVICAL:Chronic appearing findings. consider MRI if symptoms persist. 06/07/2019 XR CERVICAL:Significant degenerative disc Disease and facet arthritis at C5-6 and C6-7 consistent with cervical degnerative arthritis 06/26/2019 MRI CERVICAL:Degenerative disc disease and facet disease. The most likely etiology for the patient's left sided radiculopathy is at C6-7 where there is central to left-sided disc protrusion/herniation with exiting nerve root compression 08/21/2019 MRI LUMBAR:Mild-moderate DDD at L4-5, mild central canal stenosis, mild-moderate RT and mild LF NF stenosis 04/26/2022 DEXA scan: She has bilateral THR's. There is normal bone density of the right forearm with no comparison to previous. There is normal bone density of the LS spine with a 0.4% loss since 2019. Her risk factors are a non-traumatic fracture as an adult, a parent with a hip fracture, steroids in the last 3 months and Rheumatoid arthritis PHYSICAL/AQUA THERAPY/DME/OT HER HISTORY: Patient continues a prescribed home exer cise program 3-5 times per week 03/03/2025 PERTINENT SURGICAL EVALUATIONS/SPECIALIST CONSULTS Seen 07/16/[address] Puga, who recommen ds TIFFANIE x2. He ordered EMG/NCS of LUE. Consider ACDF C5-7 PREVIOUS INJECTION\PROCEDURE HISTORY: #1 CMBB LT C5,C6,C7 90% relief for 3 days 09/23/2019 #1 TIFFANIE C6-C7 60%relief for 2 weeks 10/17/2019 #2 TIFFANIE C6-C7 no relief 12/16/2019 #2 LT CMBB C5,C6,C7 80% relief for 2 days 01/06/2020 #1 LT RFA C5,C6,C7 75% relief for 2 months 03/16/2020 #1 LMBB LT L3,4,5 80% relief for 2 days 04/06/2020 #2 LMBB LT L3,4,5 80% relief for 2 days 05/27/2020 # 1 RFA LT L3,4,5- 90% pain relief for 6 months 12/31/2020 RFA LT L3,L4,L5 75% relief for 6 months 07/01/2021 #1 CMBB LT C3,C4,C5 W/SED 80% relief for 1 day 07/15/2021 #2 CMBB LT C3,C4,C5 80% relief for 1 day 08/11/2021 RFA LT C3,C4,C5 75% relief for 8 months 10/12/2021 LT Knee IA with 80% relief for 1 month 01/04/2022 #2 LT Knee IA 90% relief for 4 months 06/05/2022 #3 LT Knee 80% relief for 2 days 03/12/2023 #1 LMBB AB L3, L4, L5 90% relief for 1 day 04/02/2023 #2 LMBB AB L3, L4, L5 80% relief for 5 days 05/29/2023 RFA AB L3, L4, L5 80% relief for 7 months 11/01/2023 #1 LT Knee IA 75% relief for 3 months 01/19/2025 #1 LT Knee IA 50% relief for 3 weeks PREVIOUS PAIN CLINIC CARE: Denies COMPLIANCE RISK ASSESSMENT AND STRATIFICATI ON: RISK GROUP: MODERATE RISK Due to: Depression URINE DRUG TESTIN03/03/2024 Screen Un expected(+AMP) Definitive Expected 05/01/2024 Screen Expected 07/01/2024 Screen Expected 09/02/2024 Screen Expected, Definitive Expected 10/31/2024 Screen Unexpected (+AMP), Sent for Definitive 01/01/2025 Screen Expected 03/03/2025,Screen Unexpected (neg), Sent for Definitive MONITORING: Morphine Equivalent (MME): 15 mg HARVEY reviewed today and appropriate TESTING/RISK ASSESSMENTS ORT Score/Resul t: 1(Depression) TODAYS PAIN EVALUATION MEDICATION FOLLOW UP: The patient is currently prescribed Oxycodone 5/325mg TID, which provides 50% relief of pain symptoms for 4 hours. The last dose was taken 03/03/2025 Denies any side effects CURRENT PAIN SYMPTOMS: Location of Worst Pain:: Knee(s) lt Pain Frequency:: fluctuating, usually Pain Description:: sharp, stabbing Average Pain Score VAS:: 8 Pain Exacerbation:: walking ,cleaning Pain Alleviation:: medications rest, , H eating pad,massage ADL/Quality of Life Interference:: walki ng, sitting,cleaning Examination Category Sub-Category Detail Notes Category Not es General Examination HEENT: unremarkable Neck, Thyroid : supple Heart: regular rate Extremities: no clubbing, no matt a General Appearance: well-nourished indiv idual in no acute distress. The patient is alert and oriented and cooperative for evaluation Skin normal, no rash Neurologic Exam: Patient ambulates wi th an antalgic gait, pitched forward Nurse/Social Services Aide: Chris-Gary JACOBSON 03/03/2025 11:14:51 AM EDT > Cervical Spine/Neck Vertebral spine tenderness: tenderness over the upper facets bilaterally at the C2,3,4 facets Paraspinal muscle spasm: Diffuse tendern ess with spasms noted Range of motion of neck: ROM moderately limited ROM particularly w/ bilateral rotation, moderate pain induced Sensations: sensation intact to light palpation, FROM, pulses +2 Motor strength: motor strength symme tric and 5/5, DTRs symmetric and 2+/4 Inspection: no surgical scars Lumbar Spine/Lower Back Straight leg raising test: neg ative bilaterally Motor system: motor strength 5/5 i n all muscle groups bilaterally Sensory exam: sensation intact to light touch throughout bilateral lower extremities, no edema or discoloration noted Range of motion: ROM moderately limit ed, moderate pain induced. Hyperextension - Pain with Facet loading Inspection: Spinal alignment no abnormal curvature noted Palpation: diffuse tenderness t hroughout lumbar region, most particularly over lower lumbar facet joints. Spasms absent Knee / [place] Patellofemoral joint: crepitations with m ovement bilaterally Crepitus tenderness on medial jointline Knee: BILATERAL Inspection: no swelling or redne ss Range of motion: painful movements Collateral ligaments: intact medially an d laterally
--- OUTSIDE RECORDS SUMMARY | 2025-04-22 19:44 | XMS_ITS | Clinical Summary ---
Author Organization [facility] Address [address] [place] [address] Phone Care Team Providers Care Manager [employer] Name Role Phone Unavailable Unavailable Conditions or Problems No information available. Medications No information available. Medications Administered No information available. Allergies, Adverse Reactions, Alerts No information available. Results No information available. Plan of Care No information available. Procedures No information available. Vital Signs No information available. Immunizations No information available. Advance Directives No information available.
--- OUTSIDE RECORDS SUMMARY | 2025-04-22 19:44 | XMS_ITS | Data Portability ---
Author Organization [facility] Address [address] [place] [address] Assessment Encounter Date Assessment Date Assessment LastModified by Organization Details LastModified Time 03/04/2018 03/04/2018 She has a history of lumbar spondylosis. She has rheumatoid arthritis and has experienced intermittent back pain for years but noticed an increase in pain beginning 2015 without cause. Pain is localized to the right L5-S1 facet region. She is tender to palpation over this area. Pain is worse with facet loading maneuvers. She describes pain emanating from the right low back into the lateral thigh and occasionally into the calf on the right side. This is not associated with any numbness or tingling. Primarily pain is located in the lumbosacral and buttock region. Exam is most consistent with lumbar spondylosis. Dr. Reyez reviewed her lumbar MRI and noted advanced articular facet disease at L5- S1 with associated moderate narrowing on the right foramen. She is status post Right Facet Joint injection L5/S1 on 12/26/17. She reports 100% pain relief the day of the procedure. She reports 60% relief ongoing. She notes the pain is increasing daily towards baseline, but is not yet there. consulted and recommends medial branch block progressing to RFA vs therapeutic facet joint injections Q3 months. She is interested in the medial branch block and progressing to RFA if appropriate. WE will schedule this for her today. The patient reports she has completed Physical Therapy. Medication fill for Tramadol 50mg 2PO BID #120. This RX to put on hold at pharmacy until patient ready for refill. [email or web address] Not available 03/04/2018 08:47:07 05/29/2018 05/29/2018 She has a history of lumbar spondylosis. She has rheumatoid arthritis and has experienced intermittent back pain for years but noticed an increase in pain beginning 2015 without cause. Pain is localized to the right L5-S1 facet region. She is tender to palpation over this area. Pain is worse with facet loading maneuvers. She describes pain emanating from the right low back into the lateral thigh and occasionally into the calf on the right side. This is not associated with any numbness or tingling. Primarily pain is located in the lumbosacral and buttock region. Exam is most consistent with lumbar spondylosis. Lumbar MRI and noted advanced articular facet disease at L5-S1 with associated moderate narrowing on the right foramen. The patient is status post Right RFA L4-S1 on 04/11/18. The patient reports great pain relief from this injection. She rates the pain reduction at more than 50%. She now notes increased pain on the left side. She describes similar pain on the left with facet loading maneuvers. There is tenderness on the left lower lumbar facets. We will schedule her for a left medial branch block at L4-S1; the patient is in agreement with this. She reports current participation with physical therapy for her neck. Her PCP increased her Baclofen as well. Medication fill for Tramadol 50mg 2PO BID #120. This RX to put on hold at pharmacy until patient ready for refill. [email or web address] Not available 05/29/2018 09:09:32 Plan of Treatment Reminders Order Date Submit Date Provider Last Modified By Organization Details Last Modified Time Details Appointments None recorded. Lab drug screen, urine 2018 019 [email or web address] 8 [place], [facility] [address], [place], [address], 9 09:09:33 drug screen, urine 2017 018 [email or web address] 8 [place], [facility] [address], [place], [address], 8 20:31:55 Referral None recorded. Procedures medial branch block, lumbar (PROC) 2018 019 [email or web address] Jaquan Reyez MD, [facility] [place], [address], 9 08:12:15 medial branch block, lumbar (PROC) 2018 019 [email or web address] Jaquan Reyez MD, [address] [place], [address], 9 07:19:15 medial branch block, lumbar (PROC) 2017 018 coleman Reyez MD, [address] [place], [address], 8 08:14:14 Surgeries None recorded. Imaging None recorded. Medication Orders tramadol 50 mg tablet 2018 019 INTERFACE [facility], [address] [place] [address], [address], 9 09:06:44 tramadol 50 mg tablet 2017 018 INTERFACE [facility] [address], [address] [place] [address], [address], 8 10:18:28 Patient TargetsNo targets recorded. Patient InstructionsNo instructions recorded. Reason for Referral None Reported. Results Created Date Observation Date Name Description Value Unit Range Abnormal Flag Note LastModifiedBy Organization Detail LastModifiedTime 03/04/20 18 03/04/2018 drug scree n, urine THC: negati ve Not Available [place] [address], [place], [address], 03/04/2018 08:21:42 03/04/20 18 03/04/2018 drug scree n, urine Buprenorphin e: negati ve Not Available [place] [address], [place], [address], 03/04/2018 08:21:42 03/04/20 18 03/04/2018 drug scree n, urine TCA: negati ve Not Available [place] [address], [place], [address], 03/04/2018 08:21:42 03/04/20 18 03/04/2018 drug scree n, urine Barbiturates : negati ve Not Available [place] [address], [place], [address], 03/04/2018 08:21:42 03/04/20 18 03/04/2018 drug scree n, urine Benzodiazepi narinder: negati ve Not Available [place] [address], [place], [address], 03/04/2018 08:21:42 03/04/20 18 03/04/2018 drug scree n, urine Methadone: negati ve Not Available [address], [place], [address], 03/04/2018 08:21:42 03/04/20 18 03/04/2018 drug scree n, urine Amphetamines : negati ve Not Available [address], [place], [address], 03/04/2018 08:21:42 03/04/20 18 03/04/2018 drug scree n, urine Morphine/Opi ates: negati ve Not Available [address], [place], [address], 03/04/2018 08:21:42 03/04/20 18 03/04/2018 drug scree n, urine Oxycodone: negati ve Not Available [address], [place], [address], 03/04/2018 08:21:42 03/04/20 18 03/04/2018 drug scree n, urine MDMA: negati ve Not Available [place] [address], [place], [address], 03/04/2018 08:21:42 03/04/20 18 03/04/2018 drug scree n, urine Cocaine: negati ve Not Available [address], [place], [address], 03/04/2018 08:21:42 03/04/20 18 03/04/2018 drug scree n, urine Methamphetam ine: negati ve Not Available [address], [place], [address], 03/04/2018 08:21:42 05/29/19 19 05/29/2018 drug scree n, urine THC: negati ve Not Available [address], [place], [address], 05/29/2018 08:42:53 05/29/1905/29/2018 drug scree n, urine Buprenorphin e: negati ve Not Available [address], [place], [address], 05/29/2018 08:42:53 05/29/1905/29/2018 drug scree n, urine TCA: positi ve Not Available [address], [place], [address], 05/29/2018 08:42:53 05/29/1905/29/2018 drug scree n, urine Barbiturates : negati ve Not Available [address], [place], [address], 05/29/2018 08:42:53 05/29/1905/29/2018 drug scree n, urine Benzodiazepi narinder: negati ve Not Available [address], [place], [address], 05/29/2018 08:42:53 05/29/1905/29/2018 drug scree n, urine Methadone: negati ve Not Available [address], [place], [address], 05/29/2018 08:42:53 05/29/1905/29/2018 drug scree n, urine Amphetamines : negati ve Not Available [place] [address], [place], [address], 05/29/2018 08:42:53 05/29/19 19 05/29/2018 drug scree n, urine Morphine/Opi ates: negati ve Not Available [place] [address], [place], [address], 05/29/2018 08:42:53 05/29/19 19 05/29/2018 drug scree n, urine Oxycodone: negati ve Not Available [place] [address], [place], [address], 05/29/2018 08:42:53 05/29/1905/29/2018 drug scree n, urine MDMA: negati ve Not Available [address], [place], [address], 05/29/2018 08:42:53 05/29/1905/29/2018 drug scree n, urine Cocaine: negati ve Not Available [address], [place], [address], 05/29/2018 08:42:53 05/29/1905/29/2018 drug scree n, urine Methamphetam ine: negati ve Not Available [address], [place], [address], 05/29/2018 08:42:53 09/30/19 22 09/28/2021 imagi ng inter preta tion No observ ation record ed. [email or web address] [address], [place], [address], 09/29/2021 09:28:06 09/30/19 22 09/28/2021 imagi ng inter preta tion No observ ation record ed. [email or web address] [facility] [address], [place], [address], 09/29/2021 09:27:50 Result Notes None recorded. 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 2017 [place] [facility] 8 07:43:36 Depressive disorder 92646163 Active 2017 [place] [facility] 8 07:43:41 Non-alcoholic fatty liver 004950219 Active 2017 [place] [facility] 8 07:43:50 Intervertebra l disc disorder 15690493 Active 2017 [place] [facility] 8 08:56:50 Lumbar spondylosis 847092458 Active 2017 [place] [facility] 8 08:56:51 Low back pain 614215741 Active 2017 [place] [facility] 8 08:56:54 Lumbosacral spondylosis without myelopathy 20469612 Active 2017 Jaquan Reyez MD [address] [place] [address], [address] [facility] [place] [facility] 8 08:50:25 Problem Notes None recorded. Procedures Surgical History Date Name Laterality Status Provider Name and Address Organization Details Recorded Time 07/16/19 19 Diagnostic Lumbar MBB (2 Level Unilateral) completed Nicolasa Horton [place] [facility] 07/15/2018 09:31:58 06/17/19 19 Diagnostic Lumbar MBB (2 Level Unilateral) completed Nicolasa Horton [facility] 06/17/2018 10:05:04 04/11/20 18 Lumbar RFA (2 Level Unilateral) completed Nicolasa DESHPANDE [facility] 04/11/2018 15:28:55 12/27/19 18 Lumbar Facet Joint (1 Level Unilateral) completed Nicolasa DESHPANDE [facility] 12/26/2017 08:56:26 10/09/19 18 Lumbar Facet Joint (1 Level Unilateral) completed Nicolasa DESHPANDE [facility] 10/08/2017 11:01:42 12/14/19 17 Joint Replacement completed Cathy DESHPANDE [facility] 08/09/2017 08:31:52 12/14/19 17 Orthopedic Surgery completed Cathy DESHPANDE [facility] 08/09/2017 08:31:52 12/14/19 17 Hip Surgery completed Cathy DESHPANDE [facility] 08/09/2017 08:31:52 06/07/18 97 Cholecystectomy completed Cathy DESHPANDE [facility] 08/09/2017 08:31:52 Imaging Results None recorded. Procedure Notes None recorded. Medical Equipment None Reported. Allergies Allergen ID Allergen Name Allergen Category Reaction Reaction Severity Criticality Documentation Date Start Date Code Code System Note Provider Name and Address Organization Details Recorded Time 68835 Arava medicatio n hives severe Not available 08/09/2017 56103 3 RxNorm [place] [facility] 8 08:30:32 71013 lisinopri l medicatio n hives severe Not available 08/09/2017 61768 RxNorm [place] [facility] 8 08:30:32 68625 acetamino phen / hydrocodo ne medicatio n itching severe Not available 08/09/2017 70945 2 RxNorm [place] [facility] 8 08:30:32 Medications Name Sig Start Date Stop Date Status Note LastModified by Organization Details LastModified Time celecoxib 200 mg capsule 1 capsule every day by oral route. active Not Available Not Available No t Available trazodone 50 mg tablet active Not Available Not Available No t Available ondansetron HCl 8 mg tablet active Not Available Not Available Not Available fluconazole 200 mg tablet active Not Available Not Available Not Available ondansetron HCl 4 mg tablet 10/05 completed Not Available Not Available Not Available atenolol 25 mg tablet active Not Available Not Available No t Available metronidazol e 500 mg tablet active Not Available Not Available Not Available tramadol 50 mg tablet Take 2 tablets twice a day by oral route as needed for 30 days. active Not Available Not Available No t Available oxycodone-ac etaminophen 5 mg-325 mg tablet 12/04 completed Not Available Not Available Not Available dexamethason e 1 mg tablet active Not Available Not Available Not Available baclofen 10 mg tablet active Not Available Not Available No t Available cephalexin 500 mg capsule active Not Available Not Available Not Available promethazine 25 mg tablet active Not Available Not Available Not Available ibuprofen 200 mg tablet 3 tablets every day by oral route. active Not Available Not Available No t Available hydrochlorot hiazide 25 mg tablet active Not Available Not Available No t Available mupirocin 2 % topical ointment active Not Available Not Available Not Available methylpredni solone 4 mg tablets in a dose pack active Not Available Not Available No t Available Vitamin D2 1,250 mcg (50,000 unit) capsule active Not Available Not Available Not Available losartan 100 mg tablet 1 tablet every day by oral route. active Not Available Not Available No t Available atenolol 50 mg tablet 1 tablet every day by oral route. 1999 active Not Available Not Available Not Avai lable amoxicillin 875 mg-potassium clavulanate 125 mg tablet active Not Available Not Available Not Available Tylenol Extra Strength 500 mg tablet 2 tablets twice a day by oral route. 2010 active Not Available Not Available Not Avai lable Hctz/Reserpi ne/Hydralazi ne 25 mg-0.1 mg-15 mg tablet 2016 active Not Available Not Available Not Avai lable enoxaparin 40 mg/0.4 mL subcutaneous syringe active Not Available Not Available Not Available PreserVision AREDS 2,148 mcg-113 mg-45 mg-17.4 mg tablet active Not Available Not Available Not Available Vitamin D3 25 mcg (1,000 unit) capsule 1 unit every day by oral route. active Not Available Not Available No t Available duloxetine 30 mg capsule,cesario yed release Take 1 capsule every day by oral route. active Not Available Not Available No t Available duloxetine 60 mg capsule,cesario yed release active Not Available Not Available Not Available desvenlafaxi ne succinate ER 100 mg tablet,exten ded release 24 hr active Not Available Not Available Not Available Senexon-S 8.6 mg-50 mg tablet active Not Available Not Available Not Available desvenlafaxi ne succinate ER 25 mg tablet,exten ded release 24 hr 12/04 completed Not Available Not Available Not Available Xeljanz XR 11 mg tablet,exten ded release 1 tablet every day by oral route. active Not Available Not Available No t Available Vitals Date Recorded Body height Body mass index (BMI) Body weight Heart rate Oxygen saturation Systolic And Diastolic Provider Name and Address Organization Details Last Updated DateTime 9 170.18 cm 34.5 kg/m2 01687.3 2 g 68 /min 98 % 118/81 mm[Hg] Cesar Cohn [facility] 9 08:37:07 Date Recorded Body height Body mass index (BMI) Body weight Oxygen saturation Heart rate Systolic And Diastolic Provider Name and Address Organization Details Last Updated DateTime 8 170.18 cm 34.5 kg/m2 03423.3 2 g 95 % 74 /min 172/104 mm[Hg] Timbo Warner [facility] 8 08:20:00 Social History Question Answer Notes LastModified by Organizat ion Details LastModified Time Tobacco Smoking Status Never Smoker Cathy franco [facility] 08/09/2017 08:31:44 Are You Blind Or Do You Have Difficulty Seeing? Yes [email or web address] Information not available 08/09/2017 What Is Your Level Of Caffeine Consumption? Occasional [email or web address] Information not available 08/09/2017 How Much Tobacco Do You Chew? None [email or web address] Information not available 08/09/2017 Are You Deaf Or Do You Have Serious Difficulty Hearing? No [email or web address] Information not available 08/09/2017 What Type Of Diet Are You Following? REGULAR [email or web address] Information not available 08/09/2017 Which Illicit Or Recreational Drugs Have You Used? Never [email or web address] Information not available 08/09/2017 Are There Any Guns Present In Your Home? Yes Information not available 08/09/2017 Hard Of Hearing Or Deaf In One Or Both Ears? No [email or web address] Information not available 08/09/2017 Legally Blind In One Or Both Eyes? No Information no t available 08/09/2017 Prescription Drug Abuse No [email or web address] Information not available 08/09/2017 Disability Yes [email or web address] Information no t available 08/09/2017 Marital Status [email or web address] Informatio n not available 08/09/2017 What Was The Date Of Your Most Recent Tobacco Screening? 05/29/2018 Information not available 11/27/2018 How Much Tobacco Do You Smoke? No [email or web address] Information not available 08/09/2017 General Stress Level Medium [email or web address] Information not available 08/09/2017 Has Tobacco Cessation Counseling Been Provided? No [email or web address] Information not available 08/09/2017 Have You Used IV Drugs? No [email or web address] Information not available 08/09/2017 Do You Have Difficulty Walking Or Climbing Stairs? Yes [email or web address] Information not available 08/09/2017 Sex: Unknown Functional Status Question Answer Note LastModified by Organizat ion Details LastModified Time What is your level of alcohol consumption? Occasional [email or web address] Information not available 08/09/2017 Are you able to walk independently without assistance or assistive devices? YESWOREST [email or web address] Information not available 08/09/2017 Do you have difficulty doing errands alone? No Information not available 08/09/2017 Do you have difficulty dressing, bathing, grooming, or toileting? Yes [email or web address] Information not available 08/09/2017 What is your exercise level? None [email or web address] Information not available 08/09/2017 Mental Status Question Answer Note LastModified by Organization D etails LastModified Time Do you have difficulty concentrating, remembering or making decisions? No [email or web address] Information no t available 08/09/2017 Family History Relationship Description Onset Age of this Age Resolved Age Notes LastModified by Organization Details LastModified Time Mother Kidney disease [email or web address] Not available 2017 08:30:41 Mother Heart disease 55 66 [email or web address] Not available 2017 08:30:41 Mother Hypertensive disorder [email or web address] Not available 2017 08:30:41 Paternal Grandmother Rheumatoid arthritis [email or web address] Not available 2017 08:30:41 Medical History Condition Response Bipolar Disease N Coronary Artery Disease N Gout N Seizure Disorder N Atrial Fibrillation N Thyroid Disease N Hernia N Head Trauma/Injury N Depression Y COPD N Anxiety Disorder N Acid Reflux (GERD) N Cancer N Stroke N Skin Disorder N High Cholesterol N Liver Disease N Rheumatoid Arthritis Y Headaches N Fibromyalgia N Kidney Disease N Autoimmune Disease Y Osteoarthritis N Neurosurgery N Peptic Ulcer Disease N Anemia N Heart Attack (HI) N Diabetes N Cardiomyopathy N Bleeding Disorder N CHF N AIDS/HIV N Inflammatory Bowel Disease N Dementia N Asthma N Substance Abuse N Sleep Apnea N Hepatitis N Heart Disease N Pulmonary Embolism N Chronic Low Back Pain N Hypertension Y Osteoporosis N Gynecological HistoryNo gynecological history recorded. Obstetrics History GPAL:G 0 P 0 0 0 0 Past Encounters Encounter ID Performer Location Encounter Start Date Encounter Closed Date Diagnosis/Indication Diagnosis SNOMED-CT Code Diagnosis ICD10 Code Diagnosis IMO Codes Diagnosis Note [id number] Jaquan Reyez MD [place] [address] [place] [address] 08/09/2017 07:54:59 08/09/2017 09:05:56 Low back pain 257384599 M54.5 Interverte bral disc disorder 08738550 M51.27 Long-term drug therapy 750066888 Z79.899 The urine sample is being sent for LCMS, quantitati ve analysis as this is a patient that being prescribed opioid medication s for the first time at this practice. The purpose of this analysis is to confirm the patients stated medication usage and to establish baseline medication and metabolite quantities . Lumbar spondylosis 62897 0009 M47.816 Chronic pain syndrome 37 2434658 G89.4 [id number] MD [place] [address] [place] [address] 09/06/2017 08:33:23 09/06/2017 10:04:03 Degeneration of lumbar intervertebral disc 02031313 M51.36 Lumbar spondylosis 93359 0009 M47.896 Low back pain 676154375 M54.5 Chronic pain 70753062 G8 9.29 We discussed the potential risks of long-term opiate use. I advised the patient to be judicious with the narcotic medication , taking it only when pain is severe and taking breaks days whenever possible. Updated Donald reviewed and found appropriat e. Morphine Equivalent Dose is 20. The patient reports the Tramadol does not work all that great in relieving her pain. She feels it works best when combined with her Celebrex. We discussed continuing the Tramadol until she realizes relief through injection therapy; she is in agreement with this. Long-term drug therapy 357977361 Z79.899 The patient is prescribed a controlled substance. Urine drug screening was performed in office today to assess for the presence of opioids. This will be sent for confirmati on testing specific to the prescribed substance. Confirm Tramadol. Confirmati on UDS from 08/09/17 reviewed and found appropriat e. Chronic pain syndrome 37 4698158 G89.4 Interverte bral disc disorder 95450049 M51.27 [id number] Jaquan Reyez MD [place] [address] [place] [address] 10/05/2017 09:36:19 10/05/2017 10:16:35 Degeneration of lumbar intervertebral disc 67388225 M51.36 Lumbar spondylosis 59666 0009 M47.896 Chronic pain 91776663 G8 9.29 We discussed the potential risks of long-term opiate use. I advised the patient to be judicious with the narcotic medication , taking it only when pain is severe and taking breaks days whenever possible. Idania Bennett reviewed and found appropriat e. Morphine Equivalent Dose is 20. The patient reports taking the Tramadol along with the Celebrex does help to reduce pain. Long-term drug therapy 593044695 Z79.899 The patient is prescribed a controlled substance. Urine drug screening was performed in office today to assess for the presence of opioids. This will be sent for confirmati on testing specific to the prescribed substance. Confirm Tramadol. Confirmati on UDS from 09/10/17 reviewed and found appropriat e. Low back pain 792633938 M54.5 Chronic pain syndrome 37 7311848 G89.4 Interverte bral disc disorder 33284012 M51.27 [id number] MD [place] [address] [place] [address] 10/08/2017 09:50:18 10/08/2017 11:02:13 Lumbosacral spondylosis without myelopathy 22844614 M47.817 [id number] MD [place] [address] [place] [address] 12/04/2017 08:59:54 12/04/2017 09:43:47 Degeneration of lumbar intervertebral disc 90646745 M51.36 Lumbar spondylosis 98143 0009 M47.816 We discussed the potential risks of long-term opiate use. I advised the patient to be judicious with the narcotic medication , taking it only when pain is severe and taking breaks days whenever possible. Updated Donald reviewed and found appropriat e. Morphine Equivalent Dose is 20. ORT score is 1. Low back pain 122024747 M54.5 Chronic pain 03428067 G8 9.29 Long-term drug therapy [id number] Z79.899 The preliminar y urine drug screen is appropriat e for the class of medication s that the patient is being prescribed and based on their stratifica tion I will not send this sample for further quantitati ve LCMS testing. The patient reports taking the Tramadol only PRN which has been once every 2-3 days recently now that pain has returned. Chronic pain syndrome 37 2101591 G89.4 Interverte bral disc disorder 54742035 M51.27 [id number] Jaquan Reyez MD [place] [address] [place] [address] 12/26/2017 08:29:02 12/26/2017 08:56:57 Lumbosacral spondylosis without myelopathy 15860354 M47.817 [id number] Jaquan Reyez MD [place] [address] [place] [address] 03/04/2018 07:59:20 03/04/2018 08:50:08 Degeneration of lumbar intervertebral disc 93521166 M51.36 Lumbar spondylosis 78604 0009 M47.816 We discussed the potential risks of long-term opiate use. I advised the patient to be judicious with the narcotic medication , taking it only when pain is severe and taking breaks days whenever possible. Updated Donald reviewed and found appropriat e. Morphine Equivalent Dose is 20. ORT score is 1. Low back pain 958328351 M54.5 Long-term drug therapy 073678640 Z79.899 The preliminar y urine drug screen is appropriat e for the class of medication s that the patient is being prescribed and based on their stratifica tion I will not send this sample for further quantitati ve LCMS testing. The patient reports taking the Tramadol only PRN which has been once every 2-3 days recently now that pain has returned. Confirmati on UDS from 12/05/17 reviewed and found appropriat e. Chronic pain 80310788 G8 9.29 Chronic pain syndrome 37 3290602 G89.4 Interverte bral disc disorder 56974491 M51.27 [id number] [place] [address] [place] [address] 04/11/2018 14:32:19 04/11/2018 15:29:30 Lumbosacral spondylosis without myelopathy 50219683 M47.817 [id number] MD Kareem Noland [address] [place] [address] 05/29/2018 08:19:48 05/29/2018 09:12:37 Long-term drug therapy 433066254 Z79.899 The preliminar y urine drug screen is appropriat e for the class of medication s that the patient is being prescribed and based on their stratifica tion I will not send this sample for further quantitati ve LCMS testing. The patient reports taking the Tramadol only PRN which has been once every 2-3 days. Confirmati on UDS from 12/05/17 reviewed and found appropriat e. Degenerati on of lumbar intervertebral disc 21073413 M51.36 Low back pain 806842553 M54.5 Chronic pain 91487273 G8 9.29 Chronic pain syndrome 37 1810211 G89.4 Interverte bral disc disorder 63626632 M51.27 Lumbar spondylosis 60217 0009 M47.816 We discussed the potential risks of long-term opiate use. I advised the patient to be judicious with the narcotic medication , taking it only when pain is severe and taking breaks days whenever possible. Idania Bennett reviewed and found appropriat e. Morphine Equivalent Dose is 20. ORT score is 1. [id number] MD Kareem Noland [address] [place] [address] 06/17/2018 09:25:13 06/17/2018 10:05:57 Lumbosacral spondylosis without myelopathy 91321106 M47.817 [id number] Jaquan Reyez MD [place] [address] ,[facility] [address] [place] [address] 07/15/2018 08:47:42 07/15/2018 09:32:51 Lumbar spondylosis 800901282 M47.816 Health Concerns Section Related Observation LastModified by Organization Detai ls LastModified Time None Recorded Concern Status LastModified by Organization Details LastModified Time None Recorded Advance Directives Directive None Recorded Payers Insurance Date Sequence Insurance Name Policy Number Policy Sharma Covered Member ID Sharma Member ID Guarantor Name 12/08/2019 2 [place] Glendy Maya [id number] Glendy Maya 12/01/2017 1 [place] CHO[place] - FFS/TRADITION AL Glendy Maya [id number] Glendy Maya 12/01/2017 1 PASSPORT BY [employer] [facility] (MEDICAID REPLACEMENT - HMO) MEDICAID Glendyrudy Lópezwler [id number] Glendyrudy Lópezwler 12/08/2019 1 [employer] [facility] (MEDICAID REPLACEMENT - HMO) MEDICAID Glendyrudy Lópezwler [id number] Glendyrudy Lópezwler Notes Date Note Type Note Provider Name and Address Organization Details Recorded Time 8 text/html Follow-up (meds & injections)Reported by PatientHPIFor functional assessment/disability index, patient reportsunable to work.andunable to exercise.. For improvement, patient reportspain is the same as compared to last visit.. For pain scores, patient reportsaverage pain- 5/10,current pain- 5/10, andworst pain- 10/10. For recent injections, patient reportslmbb/facet injections-andsi joint injection-(12/26/2017 #2 rt facet joint 60% pain relief for 1 month10/08/17 rt facet/si joint inj 90% pain relief for 4 weeks). For current analgesics, patient reportsopioids- tramadolandreported pain relief- 70% for 5 hours(last dose of tramadol taken last night before bed.). For adverse reactions, patient reportsno nausea.,no vomiting.,no constipation.,no itching.,no sedation.,no respiratory depression., andno sexual dysfunction.. Low back painReported by PatientHPIFor associated symptoms, patient reportsweakness,numbness , andtingling. For location, patient reportsbuttock: __andradiating down the to the foot lower extremity __. For duration, patient reportsworse at nighttime. For context, patient reportsstarted without cause. For quality, patient reportsburningandsharp(p ins and needles sensation in the great and second toe.). For pain intensity, patient reportssevere,current pain level: 5/10, andworst pain level: 9/10. For alleviating factors, patient reportslying downandrest(massage/otc lidocaine cream). For aggravating factors, patient reportssitting,standing, walking, andbending/squatting. For prior imaging, patient reportsmri(05/2015 mri lsp). For lumbar surgery, patient reportsnone. For interventional treatment history, patient reportssi joint injections: __ (12/26/2017 #2 rt facet joint 60% pain relief for 1 month10/08/17 rt facet/si joint inj 90% pain relief for 4 weeks). For medications history, patient reportsnsaids: (ibuprofen-not effectivenaproxen-not effectivecelebrex-curren p-otdeyazuprkhngnny-nfe effectivemobic-not effective),muscle relaxants: (denies),neuropathics: (denies), andopioid pain medications: (denies). For prior pain management, patient reportsno. JERAMY Rodriguez - [facility] 03/04/2018 20:32:44 9 text/html Follow-up (meds & injections)Reported by PatientHPIFor functional assessment/disability index, patient reportsunable to work.andunable to exercise.. For improvement, patient reportspain is getting better.. For pain scores, patient reportsaverage pain- 5/10,current pain- 3/10, andworst pain- 6/10. For recent injections, patient reportslmbb/facet injections-andsi joint injection-(12/26/2017 #2 rt facet joint 60% pain relief for 1 month10/08/17 rt facet/si joint inj 90% pain relief for 4 weeks). For current analgesics, patient reportsopioids- tramadolandreported pain relief- 70% for 8 hours(last dose of tramadol 05/28/2018 @ 11am[facility] verified.). For adverse reactions, patient reportsno nausea.,no vomiting.,no constipation.,no itching.,no sedation.,no respiratory depression., andno sexual dysfunction.. Low back painReported by PatientHPIFor associated symptoms, patient reportsweakness,numbness , andtingling. For location, patient reportsbuttock: __andradiating down the to the foot lower extremity __. For duration, patient reportsworse at nighttime. For context, patient reportsstarted without cause. For quality, patient reportsburningandsharp(p ins and needles sensation in the great and second toe.). For pain intensity, patient reportssevere,current pain level: 3/10, andworst pain level: 6/10. For alleviating factors, patient reportslying downandrest(massage/otc lidocaine cream). For aggravating factors, patient reportssitting,standing, walking, andbending/squatting. For prior imaging, patient reportsmri(05/2015 mri lsp). For lumbar surgery, patient reportsnone. For interventional treatment history, patient reportssi joint injections: __ (12/26/2017 #2 rt facet joint 60% pain relief for 1 month10/08/17 rt facet/si joint inj 90% pain relief for 4 weeks). For medications history, patient reportsnsaids: (ibuprofen-not effectivenaproxen-not effectivecelebrex-curren l-hhrywjirksimwygpg-qzx effectivemobic-not effective),muscle relaxants: (denies),neuropathics: (denies), andopioid pain medications: (denies). For prior pain management, patient reportsno. JERAMY Rodriguez - [facility] 05/29/2018 09:09:37 OBGyn Episode No OBEpisode recorded.
--- OUTSIDE RECORDS SUMMARY | 2025-04-22 19:45 | XMS_ITS | Encounter Summary ---
Author Organization [facility] Address [address] [place] [address] Care Team Providers Care Hr Director Name Role Phone Azeb Tavares Primary Care Provider Encounter Details Date Type Department Care Team (Late Contact Info) Description 09/18/2024 Results Follow-Up [facility] [address] [address] Joseph Gutierrez, COMMUNITY SERVICE OFFICER [address] [address] Social History Tobacco Use Types Packs/Day Years Used Date Smoking Tobacco: Never Smokeless Tobacco: Never Alcohol Use Standard Drinks/Week Comments No 0 (1 standard drink = 0.6 oz pur e alcohol) Comments No Sex and Gender Information Value Date Recorded Sex Assigned at Not on file Legal Sex Female 10:13 AM EDT Gender Identity Not on file Sexual Orientation Not on file documented as of this encounter Plan of Treatment Upcoming Encounters Date Type Department Care Team (Late st Contact Info) Description 05/27/2025 9:30 AM EST Office Visit [facility] [address] [address] Joseph Gutierrez, COMMUNITY SERVICE OFFICER [address] [id number] 09/21/2025 9:30 AM EDT Office Visit [facility] [address] [place] [address] Gabino Burroughs MD 330 [facility] [address] [place], [place] [id number] documented as of this encounter Goals Goal Patient Goal Type Associated Problems Recent Progress Patient-Stated? Author Specialty Pharmacy General Goal General On track( 025 3:18 PM EDT) No Thanh García, YaniD Note: Reduce number of flares and pain score. 7.17.25: Patient reports great improvement in pain and less flares, documented as of this encounter Visit Diagnoses Not on filedocumented in this encounter Care Teams Hr Director Relationship Specialty Start Date End Date Azeb Tavares PA [address] [place] [address] PCP - General Physician Tracer Bullet Section Supervisor 06/18/24 documented as of this encounter
--- OUTSIDE RECORDS SUMMARY | 2025-04-22 19:45 | XMS_ITS | Clinical Summary ---
Author Organization [facility] Address [address] [place] [address] Care Team Providers Care Enologist Name Role Phone Azeb Tavares Primary Care Provider [phone] Allergies Active Allergy Reactions Criticality Noted Date Comments Joaquin Inhibitors Unknown - Low Severity 5 Leflunomide Hives Low 08/15/2017 Lisinopril Hives Low 08/15/2017 Hydrocodone-Acetaminophen Itching Low 08/15/2017 Medications DULoxetine (CYMBALTA) 60 MG capsule Take 2 capsules by mouth Daily. 8 Active traZODone (DESYREL) 50 MG tablet Take 1 tablet by mouth Every Night. Active oxyCODONE (ROXICODONE) 5 MG immediate release tablet Take 1 tablet by mouth Every 8 (Eight) Hours As Needed. 0 Active metoprolol succinate XL (TOPROL-XL) 100 MG 24 hr tablet Take 1 tablet by mouth Daily. 4 Active Vraylar 1.5 MG capsule capsule Take 1 capsule by mouth Daily. Active losartan-hydroc hlorothiazide (HYZAAR) 100-12.5 MG per tablet Take 1 tablet by mouth Daily. Active cyclobenzaprine (FLEXERIL) 10 MG tabletIndicatio ns:Seropositive rheumatoid arthritis Take 1 tablet by mouth 3 (Three) Times a Day As Needed for Muscle Spasms. 270 tablet 1 5 Active celecoxib (CeleBREX) 200 MG capsuleIndicati ons:Seropositiv e rheumatoid arthritis,High risk medication use Take 1 capsule by mouth once daily 30 capsule 4 5 Active Tofacitinib Citrate ER (Xeljanz XR) 11 MG tablet sustained-relea se 24 hour Take 1 tablet by mouth Daily. 30 tablet 1 5 Active Tofacitinib Citrate ER (Xeljanz XR) 11 MG tablet sustained-relea se 24 hour Take 1 tablet by mouth Daily. 30 tablet 5 03/30/2025 12:39 PM EST 5 04/08/20 25 Discontinu ed(Reorder ) Active Problems Problem Noted Date Diagnosed Date Cervical radiculopathy 01/21/2025 Cervical spondylosis without myelopathy 01/22/20 25 Other fatigue 01/13/2025 Assessment & Plan (01/21/2025 9:21 AM EDT): Update QTB and hepatitis panel with next labs Gastroesophageal reflux disease without esophagi tis 10/17/2024 Xerostomia 09/09/2024 Assessment & Plan (01/21/2025 9:21 AM EDT): She has had significant dry eyes and dry mouth Continue checkups with eye doctor and the dentist regularly, but she can use Systane or Refresh eyedrops and just keep getting moist during the day. She can try ACT or Biotene toothpaste for dry mouth, Xylimelts at bedtime, or [place] spray from [employer]. Drink plenty of fluids Assessment & Plan (09/18/2024 10:13 AM EDT): She has had significant dry eyes and dry mouth Continue checkups with eye doctor and the dentist regularly, but she can use Systane or Refresh eyedrops and just keep getting moist during the day. She can try ACT or Biotene toothpaste for dry mouth, then Xalamel at bedtime, and [place] spray from [employer]. Drink plenty of fluids Insomnia 06/03/2024 Seropositive rheumatoid arthritis 11/28/2023 Assessment & Plan (01/21/2025 9:32 AM EDT): RF 159; CCP greater than 250; EVANS neg; ESR 60; ASO 670 X-rays c/w early inflammatory changes but no erosions. PLAQUENIL in past x 6 mos--no relief METHOTREXATE x 2 yr--? Relief Decadron x 4 years SSZ trial x 4 mos--no relief Tried MINOCIN which has helped some cases of RA, but no relief. [facility] doesn't recommend antibiotic therapy. Concerned w/ TNF in patient w/chronic ASO titers and h/o joint pain relieved w/ Amoxil Started Xeljanz Mar 2016 Hand films 11/2022 - Changes particularly in the left greater than right wrist consistent with her diagnosis of rheumatoid arthritis. There is no change from 2019. Continue Xeljanz daily Continue Celebrex up to BID PRN Labs 01/01/25 stable New lab order provided to do with next office visit. RTC 4 months with [facility] and 8 months with MD Assessment & Plan (09/18/2024 10:28 AM EDT): RF 159; CCP greater than 250; EVANS neg; ESR 60;ASO 670; x-rays c/w early inflammatory changes but no erosions. PLAQUENIL in past x 6 mos--no relief; METHOTREXATE x 2 yr--? relief; on decadron x 4 years; SSZ trial x 4 mos--no relief; tried MINOCIN which has helped some cases of RA, but no relief. [facility] doesn't recommend antibiotic therapy. Concerned w/TNF in patient w/chronic aso titers and h/o joint pain relieved w/amoxil; discussed w/pt. Started Xeljanz Mar 28 2016; Hand films 11/2022 - Changes particularly in the left greater than right wrist consistent with her diagnosis of rheumatoid arthritis. There is no change from 2019. Continue Xeljanz. Continue Celebrex Weight loss - 17 day diet , weight watchers, dash diet, [place] ( [facility] online) Labs today. Request last labs from [facility]. RTC 4 months Assessment & Plan (11/28/2023 10:45 AM EDT): RF 159; CCP greater than 250; EVANS neg; ESR 60;ASO 670; x-rays c/w early inflammatory changes but no erosions. PLAQUENIL in past x 6 mos--no relief; METHOTREXATE x 2 yr--? relief; on decadron x 4 years; SSZ trial x 4 mos--no relief; tried MINOCIN which has helped some cases of RA, but no relief. [facility] doesn't recommend antibiotic therapy. Concerned w/TNF in patient w/chronic aso titers and h/o joint pain relieved w/amoxil; discussed w/pt. Started Xeljanz Mar 28 2016; Hand films 11/2022 - Changes particularly in the left greater than right wrist consistent with her diagnosis of rheumatoid arthritis. There is no change from 2020. Doing well. Plan: Continue Celebrex and Xeljanz. Weight loss - 17 day diet , weight watchers, dash diet, [place] ( [facility] online)Medrol dose pack PRN for flare. Bilateral primary osteoarthritis of knee 024 Assessment & Plan (01/21/2025 9:32 AM EDT): steroid knee injections (bilateral): 09/27/20 Left knee injection 10/26 with relief. S/p Gel injection - no relief. Worse lately. Just had injection of steroid with pain management 01/19/25 If pain is severe recommend going back to Dr. Ramirez for evaluation. She defers at present. She is on oxycodone with pain management Assessment & Plan (09/18/2024 10:13 AM EDT): steroid knee injections (bilateral): 09/27/20 Left knee injection 10/26 with relief. S/p Gel injection - no relief. Stable currently. If pain is severe recommend going back to Dr. Ramirez for evaluation. She also gets intermittent injections with pain management Assessment & Plan (11/28/2023 10:45 AM EDT): steroid knee injections (bilateral): 09/27/20 Left knee injection 10/26 with relief. S/p Gel injection - no relief. Stable currently. She had a L knee injection 2022 with minimal improvement. Plan: If pain is severe recommend going back to Dr. Ramirez for evaluation. Seems to be doing well after back pain improved Osteopenia of multiple sites 11/28/2023 Assessment & Plan (01/21/2025 9:32 AM EDT): DEXA 03/01/22 ? T11 compression fracture. 1/3rd value forearm -0.5, total -1.0, Spine -0.2 T spine film 02/2022- anterior compression of T11, DDD and spurring. No known h/o trauma 10/29/2024 DEXA: Lumbar spine 0.2, right radius -0.7 Vitamin D3 2000IU per day Recommend calcium supplement 0160-9966 mg/day. Weight bearing exercise. Dexa due 10/2026 Assessment & Plan (09/18/2024 10:28 AM EDT): Dexa scan 03/01/22 ? T11 compression fracture. 1/3rd value forearm -0.5, total - 1.0, Spine -0.2 stable. T spine film 02/2022- anterior compression of T11, DDD and spurring. No known h/o trauma Vitamin D 2000IU per day Recommend calcium supplement 8953-9611/day. Weight bearing exercise. Walking bothers her hips. Could try recumbent bike. Dexa due 03/01/24- ordered today Assessment & Plan (11/28/2023 10:46 AM EDT): Dexa scan 03/01/22 ? T11 compression fracture. 1/3rd value forearm -0.5, total - 1.0, Spine -0.2 stable. T spine film 02/2022- anterior compression of T11, DDD and spurring. No known h/o trauma Plan: Vitamin D 2000IU per day ; calcium supplement 7946-6586/day. Weight bearing exercise. Walking bothers her hips. Could try recumbent bike. Dexa due 03/01/24 Vitamin D deficiency 11/28/2023 Assessment & Plan (01/13/2025 12:20 PM EDT): 59.2 12/2024 Continue 2000IU per day of Vitamin D3 Assessment & Plan (09/18/2024 10:06 AM EDT): 34.4 in 03/29 Continue 2000IU per day of Vitamin D. Recheck today Assessment & Plan (11/28/2023 10:46 AM EDT): 07/22-.2 She took her RX for 3 months but did not start her 2000Iu daily 11/22 D level was 32.9 43 in 09/2019 27.4 in 06/28. She did complete prescription D. 44.7 in 02/25 34.4 in 03/29 Plan: Continue 2000IU per day of Vitamin D. Recheck annually. High risk medication use 11/28/2023 Assessment & Plan (01/21/2025 9:21 AM EDT): Xeljanz well tolerated and effective QTB negative 11/12/23- update with next labs Hepatitis panel negative 10/25/22- update with next labs CXR negative 07/27 Intermittent lipid checks- will order with next labs Would hold Xeljanz for any infection or illness, Seek treatment and when well and illness is resolved you may restart medication. We discussed biologic agents at length. Risks and alternatives were discussed at length and the option of no treatment was also given. We discussed risks including but not limited to infections which can be unusual, severe, and deadly. When possible, these agents should be stopped immediately if infections occur. Unusual infection such as TB and fungal infections can occur. There may be an increased risk of lymphoma with these agents. Other risks can include a multiple sclerosis-like illness and worsening of heart failure. Infusion or injection reactions which can be deadly have been reported. Studies on have not been done so should be avoided while on these agents. Reactivation of a deadly brain virus and hepatitis viruses have been reported. Worsening of COPD has been seen with orencia. Elevated lipids, elevation in liver functions, and dangerous changes in blood counts have been seen with certain agents. Regular monitoring will be required Assessment & Plan (09/18/2024 10:06 AM EDT): On Xeljanz Mar 2016- Well tolerated and effective. QTB negative 11/12/23 Hepatitis panel negative 10/25/22 CXR negative 07/27 Would hold Xeljanz for any infection or illness, Seek treatment and when well and illness is resolved you may restart medication. Assessment & Plan (11/28/2023 10:45 AM EDT): On Xeljanz Mar 2016- Well tolerated and effective. S/p J&J vaccine. QTB and Hepatitis 10/27 CXR negative 07/27 Plan: Cbc,Cmp Q 3 Months- 07/28 ALT 47, glucose 100 Would hold Xeljanz for any infection or illness, Seek treatment and when well and illness is resolved you may restart medication. Hold Xeljanz 1 week after booster. 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 Depressive disorder 08/09/2017 Nonalcoholic fatty liver disease 08/09/2017 Rheumatoid arthritis 08/09/2017 Encounters Date Type Department Care Team Description 02/15/2025 Refill [facility] [address] [address] Joseph Gutierrez APRN Seropositive rheumatoid arthritis; High risk medication use 01/21/2025 9:30 AM EDT Office Visit [facility] [address] [address] Joseph Gutierrez, WATERSH[employer] COORDINATOR Seropositive rheumatoid arthritis (Primary Dx); High risk medication use; Bilateral primary osteoarthritis of knee; Osteopenia of multiple sites; Xerostomia; Vitamin D deficiency; Other fatigue; Need for lipid screening 01/21/2025 Travel from Last 3 Months Family History Medical History Relation Name Comments Arthritis Father Hypertension Father Testicular cancer Father Arthritis Mother Heart disease Mother Hypertension Mother Relation Name Status Comments Brother MVA Daughter Alive Father Alive Mother Social History Tobacco Use Types Packs/Day Years Used Date Smoking Tobacco: Never Smokeless Tobacco: Never Tobacco Cessation:Counseling Given: Not Answered Alcohol Use Standard Drinks/Week Comments No 0 (1 standard drink = 0.6 oz pur e alcohol) Comments No Sex and Gender Information Value Date Recorded Sex Assigned at Not on file Legal Sex Female 10:13 AM EDT Gender Identity Not on file Sexual Orientation Not on file Last Filed Vital Signs Vital Sign Reading Time Taken Comments Blood Pressure 130/78 01/21/2025 9:05 AM EDT Pulse 74 01/21/2025 9:05 AM EDT Temperature 36.6 C (97.8 F) 01/21/2025 9:05 AM EDT Respiratory Rate 15 07/16/2019 11:33 AM EDT Oxygen Saturation 99% 10/08/2018 8:51 AM EDT Inhaled Oxygen Concentration - - Weight 84.4 kg (186 lb) 01/21/2025 9:05 AM EDT Height 170.2 cm (5' 7 ) 01/21/2025 9:05 AM EDT Body Mass Index 29.13 01/21/2025 9:05 AM EDT Plan of Treatment Upcoming Encounters Date Type Department Care Team (Late st Contact Info) Description 05/27/2025 9:30 AM EST Office Visit [facility] [address] [address] Joseph Gutierrez, WATERSHED COORDINATOR [address] [phone] 09/21/2025 9:30 AM EDT Office Visit [facility] [address] [address] Gabino Burroughs MD [address] [phone] Health Maintenance Due Date Last Done Comments Annual Gynecologic Pelvic and Breast Exam 1970 Pneumococcal Vaccine 50+ (1 of 2 - PCV) 1988 TDAP/TD VACCINES (1 - Tdap) 08/27/1999 08/26/1999 PAP SMEAR 08/02/2010 08/03/2007 COLOGUARD 2014 COLON CANCER SCREENING 5 YEA R SIGMOIDOSCOPY 2014 CT COLONOGRAPHY 2014 FECAL OCCULT BLOOD TEST 2014 FIT Testing (1 year) 2014 HEPATITIS C SCREENING 08/02/2017 ZOSTER VACCINE (1 of 2) 10/02/2019 ANNUAL WELLNESS VISIT 11/13/2019 11/12/2018, 019 MAMMOGRAM 11/25/2020 11/25/2018 INFLUENZA VACCINE 12/05/2024 03/30/2020 COLONOSCOPY 07/05/2030 07/05/2020 COLORECTAL CANCER SCREENING 07/05/2030 Goals Goal Patient Goal Type Associated Problems Recent Progress Patient-Stated? Author Specialty Pharmacy General Goal General On track( 025 3:18 PM EDT) No Thanh García, PharmD Note: Reduce number of flares and pain score. 7.17.25: Patient reports great improvement in pain and less flares, Procedures Procedure Name Priority Date/Time Associated Diagnosis Comments SCANNED - COLONOSCOPY 07/05/2020 from Last 3 Months or Most Recently Relevant to Health Maintenance Results * Colonoscopy, Scan (07/05/2020) us Joseph Gutierrez APRN CHART REVIEW TABS Final Res ult from Last 3 Months or Most Recently Relevant to Health Maintenance Insurance [employer] PPO Care Teams Enologist Relationship Specialty Start Date End Date Azeb Tavares PA [address] [place] [address] PCP - General Physician Relations Liaison 06/18/24
--- OUTSIDE RECORDS SUMMARY | 2025-04-22 19:45 | XMS_ITS | Data Portability ---
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 Plan of Treatment Reminders Order Date Submit Date Provider Last Modified By Organization Details Last Modified Time Details Appointments None recorded. Lab TSH, ultra-sensi tive, serum 2024 025 [facility] [address] [place], [address], 5 14:16:03 rapid strep group A, throat [address], [address] [facility], [place], [address], 5 11:12:46 vitamin D, 25-hydroxy, total, serum 2024 025 [facility] [address] [place], [address], 5 14:16:04 lipid panel, serum 2024 025 [facility] [address] [place], [address], 5 14:16:02 CMP, serum or plasma 2024 025 [facility]), [address] [place], [address], 5 14:16:01 CBC w/ auto diff 2024 025 [facility]), [address] [place], [address], 5 14:16:00 H pylori urea breath test, co2 infrared 2024 025 [facility]), [address] [place], [address], 5 14:16:06 Hepatitis C IgG Ab, qual, serum 2024 025 [facility]), [address] [place], [address], 5 14:16:03 HIV 1 + 2, meaningful use set 2024 025 [facility]), [address] [place], [address], 5 14:16:[address] referral - first available appt 2024 025 BERTH[facility], [address] [place] [address] , Saeid Jiménez, [place], [address], 18:44:47 Procedures None recorded. Surgeries None recorded. Imaging MAMMO, screening, bilateral 2024 025 [facility] ([facility]), [address], [place], [address], 5 11:20:05 Medication Orders trazodone 100 mg tablet 2024 025 [facility], [address], [place], [address], 5 10:41:51 ergocalcife rol (vitamin D2) 50 mcg (2,000 unit) capsule 2024 025 [facility], [address], [address], 5 10:41:48 hydrochloro thiazide 25 mg tablet 2024 025 [facility], [address], [address], 5 10:41:58 losartan 100 mg tablet 2024 025 [facility], [address], [address], 5 10:41:44 metoprolol succinate ER 100 mg tablet,exte nded release 24 hr 2024 025 [facility], [address], [address], 5 10:41:51 Vraylar 1.5 mg capsule 2024 025 [facility], [address], [address], 5 10:34:54 duloxetine 60 mg capsule,del ayed release 2024 025 [facility], [address], [address], 5 10:41:49 amoxicillin 875 mg-potassiu m clavulanate 125 mg tablet 2024 025 [facility], [address], [address], 5 10:27:14 prednisone 20 mg tablet 2024 025 [facility], [address], [address], 5 10:34:49 trazodone 100 mg tablet 2024 025 [facility], [address], [address], 5 11:03:01 Zithromax Z-Uriel 250 mg tablet 2024 025 [facility], [address], [address], 5 13:52:33 prednisone 20 mg tablet 2024 025 [email or web address] [address] [facility], [address], [address], 5 10:01:02 Prevacid 30 mg capsule,del ayed release 2024 025 [facility], [address], [address], 5 13:52:46 amoxicillin 500 mg tablet 2024 025 [facility], [address], [address], 5 13:52:25 clarithromy gertrude 500 mg tablet 2024 025 [facility], [address], [address], 5 13:52:38 trazodone 50 mg tablet [address] [facility], [address], [address], 5 13:41:06 Seroquel 25 mg tablet 2024 025 [facility], [address], [address], 10:26:27 ergocalcife rol (vitamin D2) 50 mcg (2,000 unit) capsule 2024 025 [facility], [address] [place], [address], 5 11:44:40 metoprolol succinate ER 100 mg tablet,exte nded release 24 hr 2024 025 [facility], [address], [address], 11:44:41 losartan 100 mg tablet 2024 025 [facility], [address], [address], 5 11:44:40 hydrochloro thiazide 25 mg tablet 2024 025 [facility], [address] [place], [address], 5 11:44:41 duloxetine 60 mg capsule,del ayed release 2024 025 [facility], [address], [address], 11:44:39 Patient TargetsNo targets recorded. Patient Instructions Encounter Date Encounter Id Patient Instructions Last Modified By Organization Details Last Modified Time 06/03/2024 [id number] mammogram: about this test Not available 06/03/2024 11:24:00 insomnia: care instructions Not available 06/03/2024 11:44:32 high blood pressure: care instructions [email or web address] Not available 06/03/2024 11:44:32 learning about high blood pressure [email or web address] Not available 06/03/2024 11:44:32 learning about mood disorders [email or web address] Not available 06/03/2024 11:44:32 skin lesions: care instructions [email or web address] Not available 06/03/2024 11:47:06 Rheumatoid Arthritis (RA): Care Instructions [email or web address] Not available 06/03/2024 11:44:32 09/01/2024 [id number] insomnia: care instructions [email or web address] Not available 09/01/2024 11:02:57 sore throat: car e instructions [email or web address] Not available 09/01/2024 11:12:46 HIV testing: car e instructions Not available 09/01/2024 11:12:46 12/01/2024 [id number] learning about mood disorders [email or web address] Not available 12/01/2024 10:34:50 Rheumatoid Arthritis (RA): Care Instructions [email or web address] Not available 12/01/2024 12:56:41 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) [address] [place], [address], 09/02/2024 14:16:00 09/02/19 25 09/02/2024 CBC WITH DIFFE RENTI AL/PL ATELE T RBC 4.20 x10e6 /uL 3.77-5 .28 normal Not Available [facility] ([facility]) [address] [place], [address], 09/02/2024 14:16:00 09/02/19 25 09/02/2024 CBC WITH DIFFE RENTI AL/PL ATELE T hemoglobin 13.5 g/dL 11.1-1 5.9 normal Not Available [facility] ([facility]) [address] [place], [address], 09/02/2024 14:16:00 09/02/19 25 09/02/2024 CBC WITH DIFFE RENTI AL/PL ATELE T hematocrit 42.1 % 34.0-4 6.6 normal Not Available [facility] ([facility]) [address] [place], [address], 09/02/2024 14:16:00 09/02/19 25 09/02/2024 CBC WITH DIFFE RENTI AL/PL ATELE T MCV 100 fL 79-97 above high normal Not Available [facility] ([facility]) [address] [place], [address], 09/02/2024 14:16:00 09/02/1909/02/2024 CBC WITH DIFFE RENTI AL/PL ATELE T MCH 32.1 pg 26.6-3 3.0 normal Not Available [facility] ([facility]) [address] [place], [address], 09/02/2024 14:16:00 09/02/1909/02/2024 CBC WITH DIFFE RENTI AL/PL ATELE T MCHC 32.1 g/dL 31.5-3 5.7 normal Not Available [facility] ([facility]) [address] [place], [address], 09/02/2024 14:16:00 09/02/1909/02/2024 CBC WITH DIFFE RENTI AL/PL ATELE T RDW 13.1 % 11.7-1 5.4 Not Available [facility] ([facility]) [address] [place], [address], 09/02/2024 14:16:00 09/02/1909/02/2024 CBC WITH DIFFE RENTI AL/PL ATELE T platelets 306 x10e3 /uL 150-45 0 normal Not Available [facility] ([facility]) [address] [place], [address], 09/02/2024 14:16:00 09/02/1929 0809/02/2024 CBC WITH DIFFE RENTI AL/PL ATELE T neutrophils 61 % not estab. normal Not Available [facility] ([facility]) [address] [facility], [place], [address], 09/02/2024 14:16:00 09/02/19 25 09/02/2024 CBC WITH DIFFE RENTI AL/PL ATELE T lymphs 25 % not estab. normal Not Available [facility] ([facility]) [address] [facility], [place], [address], 09/02/2024 14:16:00 09/02/19 25 09/02/2024 CBC WITH DIFFE RENTI AL/PL ATELE T monocytes 8 % not estab. normal Not Available [facility] ([facility]) [address] [facility], [place], [address], 09/02/2024 14:16:00 09/02/19 25 09/02/2024 CBC WITH DIFFE RENTI AL/PL ATELE T eos 5 % not estab. normal Not Available [facility] ([facility]) [address] [facility], [place], [address], 09/02/2024 14:16:00 09/02/19 25 09/02/2024 CBC WITH DIFFE RENTI AL/PL ATELE T basos 1 % not estab. normal Not Available [facility] (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) [address] [place], [address], 09/02/2024 14:16:00 09/02/19 25 09/02/2024 CBC WITH DIFFE RENTI AL/PL ATELE T neutrophils (absolute) 3.1 x10e3 /uL 1.4-7. 0 normal Not Available [facility] ([facility]) [address] [facility], [place], [address], 09/02/2024 14:16:00 09/02/19 25 09/02/2024 CBC WITH DIFFE RENTI AL/PL ATELE T lymphs (absolute) 1.3 x10e3 /uL 0.7-3. 1 normal Not Available [facility] ([facility]) [address] [facility], [place], [address], 09/02/2024 14:16:00 09/02/19 25 09/02/2024 CBC WITH DIFFE RENTI AL/PL ATELE T monocytes(ab solute) 0.4 x10e3 /uL 0.1-0. 9 normal Not Available [facility] ([facility]) [address] [facility], [place], [address], 09/02/2024 14:16:00 09/02/19 25 09/02/2024 CBC WITH DIFFE RENTI AL/PL ATELE T eos (absolute) 0.3 x10e3 /uL 0.0-0. 4 normal Not Available [facility] ([facility]) [address] [facility], [place], [address], 09/02/2024 14:16:00 09/02/19 25 09/02/2024 CBC WITH DIFFE RENTI AL/PL ATELE T baso (absolute) 0.1 x10e3 /uL 0.0-0. 2 normal Not Available [facility] ([facility]) [address] [place], [address], 09/02/2024 14:16:00 09/02/1909/02/2024 CBC WITH DIFFE RENTI AL/PL ATELE T immature granulocytes 0 % not estab. Not Available [facility] ([facility]) [address] [facility], [place], [address], 09/02/2024 14:16:00 09/02/19 25 09/02/2024 CBC WITH DIFFE RENTI AL/PL ATELE T immature grans (abs) 0.0 x10e3 /uL 0.0-0. 1 Not Available [facility] ([facility]) [address] [facility], [place], [address], 09/02/2024 14:16:00 09/02/19 25 09/02/2024 CBC WITH DIFFE RENTI AL/PL ATELE T NRBC ASSEMBLER ENGINE Not Available [facility] ([facility]) [address] [facility], [place], [address], 09/02/2024 14:16:00 09/02/19 25 09/02/2024 CBC WITH DIFFE RENTI AL/PL ATELE T hematology comments: ASSEMBLER ENGINE Not Available [facility] ([facility]) [address] [facility], [place], [address], 09/02/2024 14:16:00 09/02/19 25 09/02/2024 COMP. METAB OLIC PANEL (14) glucose 83 mg/dL 70-99 normal Not Available [facility] ([facility]) [address] [facility], [place], [address], 09/02/2024 14:16:01 09/02/19 25 09/02/2024 COMP. METAB OLIC PANEL (14) BUN 9 mg/dL 6-24 normal Not Available [facility] ([facility]) [address] [facility], [place], [address], 09/02/2024 14:16:01 09/02/19 25 09/02/2024 COMP. METAB OLIC PANEL (14) creatinine 0.79 mg/dL 0.57-1 .00 normal Not Available [facility] ([facility]) [address] [facility], [place], [address], 09/02/2024 14:16:01 09/02/19 25 09/02/2024 COMP. METAB OLIC PANEL (14) eGFR 89 mL/mi n/1.7 3 >59 normal Not Available [facility] ([facility]) [address], [place], [address], 09/02/2024 14:16:01 09/02/19 25 09/02/2024 COMP. METAB OLIC PANEL (14) BUN/creatini ne ratio 11 9-23 normal Not Available [facility] ([facility]) [address] [place], [address], 09/02/2024 14:16:01 09/02/19 25 09/02/2024 COMP. METAB OLIC PANEL (14) sodium 139 mmol/ L 134-14 4 normal Not Available [facility] ([facility]) [address], [place], [address], 09/02/2024 14:16:01 09/02/19 25 09/02/2024 COMP. METAB OLIC PANEL (14) potassium 4.2 mmol/ L 3.5-5. 2 normal Not Available [facility] ([facility]) [address], [place], [address], 09/02/2024 14:16:01 09/02/19 25 09/02/2024 COMP. METAB OLIC PANEL (14) chloride 97 mmol/ L 96-106 normal Not Available [facility] ([facility]) [address] [place], [address], 09/02/2024 14:16:01 09/02/19 25 09/02/2024 COMP. METAB OLIC PANEL (14) carbon dioxide, total 27 mmol/ L 20-29 normal Not Available [facility] ([facility]) [address] [place], [address], 09/02/2024 14:16:01 09/02/19 25 09/02/2024 COMP. METAB OLIC PANEL (14) calcium 10.2 mg/dL 8.7-10 .2 normal Not Available [facility] ([facility]) [address] [place], [address], 09/02/2024 14:16:01 09/02/19 25 09/02/2024 COMP. METAB OLIC PANEL (14) protein, total 7.2 g/dL 6.0-8. 5 normal Not Available [facility] ([facility]) [address] [place], [address], 09/02/2024 14:16:01 09/02/19 25 09/02/2024 COMP. METAB OLIC PANEL (14) albumin 4.5 g/dL 3.8-4. 9 normal Not Available [facility] ([facility]) [address] [place], [address], 09/02/2024 14:16:01 09/02/19 25 09/02/2024 COMP. METAB OLIC PANEL (14) globulin, total 2.7 g/dL 1.5-4. 5 Not Available [facility] ([facility]) [address] [place], [address], 09/02/2024 14:16:01 09/02/19 25 09/02/2024 COMP. METAB OLIC PANEL (14) bilirubin, total 0.3 mg/dL 0.0-1. 2 normal Not Available [facility] ([facility]) [address], [place], [address], 09/02/2024 14:16:01 09/02/19 25 09/02/2024 COMP. METAB OLIC PANEL (14) alkaline phosphatase 77 IU/L 44-121 normal Not Available [facility] ([facility]) [address] [place], [address], 09/02/2024 14:16:01 09/02/19 25 09/02/2024 COMP. METAB OLIC PANEL (14) AST (SGOT) 29 IU/L 0-40 normal Not Available [facility] ([facility]) [address] [place], [address], 09/02/2024 14:16:01 09/02/19 25 09/02/2024 COMP. METAB OLIC PANEL (14) ALT (SGPT) 30 IU/L 0-32 normal Not Available [facility] ([facility]) [address] [facility] [place], [address], 09/02/2024 14:16:01 09/02/19 25 09/02/2024 LIPID PANEL cholesterol, total 174 mg/dL 100-19 9 normal Not Available [facility] ([facility]) [address] [place], [address], 09/02/2024 14:16:02 09/02/19 25 09/02/2024 LIPID PANEL triglyceride s 146 mg/dL 0-149 normal Not Available [facility] ([facility]) [address] [place], [address], 09/02/2024 14:16:02 09/02/19 25 09/02/2024 LIPID PANEL HDL cholesterol 48 mg/dL >39 normal Not Available [facility] ([facility]) [address] [place], [address], 09/02/2024 14:16:02 09/02/19 25 09/02/2024 LIPID PANEL VLDL cholesterol danny 26 mg/dL 5-40 Not Available [facility] ([facility]) [address] [place], [address], 09/02/2024 14:16:02 09/02/19 25 09/02/2024 LIPID PANEL LDL chol calc ([facility]) 100 mg/dL 0-99 above high normal Not Available [facility] (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) [address] [place], [address], 09/02/2024 14:16:02 09/02/19 25 09/02/2024 HCV ANTIB MARGARITA CASCA DE(PC R/GEN O) HCV Ab Non Reacti ve non reacti ve Not Available [facility] ([facility]) [address] [facility], [place], [address], 09/02/2024 14:16:03 09/02/19 25 09/02/2024 HCV ANTIB MARGARITA CASCA DE(PC R/GEN O) interpretati on: Commen t Not infec bret with HCV unles s early or acute infec tion is suspe cted (whic h may be delay ed in an immun ocomp romis ed indiv idual ), or other evide nce exist s to indic ate HCV infec tion. Not Available [facility] ([facility]) [address] [facility], [place], [address], 09/02/2024 14:16:03 09/02/19 25 09/02/2024 TSH TSH 3.860 uIU/m L 0.450- 4.500 normal Not Available [facility] ([facility]) [address] [facility], [place], [address], 09/02/2024 14:16:03 09/02/19 25 09/02/2024 VITAM IN D, 25-HY DROXY vitamin D, 25-hydroxy 49.0 NG/mL 30.0-1 00.0 Vitam in D defic iency has been defin ed by the Insti tute of Medic ine and an Endoc rine Socie ty pract ice guide line as a level of serum 25-OH vitam in D less than 20 ng/mL (1,2) . The Endoc rine Socie ty went on to furth er defin e vitam in D insuf ficie ncy as a level betwe en 21 and 29 ng/mL (2). 1. IOM (Inst itute of Medic ine). 2010. Dieta ry refer ence julia es for calci um and D. Roger powell [place]: The Natio nal [facility] Press . 2. Holic k MF, Seth ey [place], Timoteo off-F errar i ROSA, et al. Evalu ation , treat ment, and preve ntion of vitam in D defic iency : an Endoc rine Socie ty clini danny pract ice guide line. JCEM. 2010; 96(7) :1911 -30. Not Available [facility] ([facility]) [address] [facility], [place], [address], 09/02/2024 14:16:04 09/02/19 25 09/02/2024 HIV AB/P2 4 AG WITH REFLE X HIV Ab/P24 Ag screen Non Reacti ve non reacti ve HIV-1 /HIV- 2 antib odies and HIV-1 p24 antig en were NOT detec bret. There is no labor atory evide nce of HIV infec tion. HIV Negat nelly Not Available [facility] ([facility]) [address] [facility], [place], [address], 09/02/2024 14:16:05 09/02/19 25 09/02/2024 H PYLOR I BREAT H TEST H pylori breath test Positi ve negati ve abnormal Not Available [facility] ([facility]) [address] [facility], [place], [address], 09/02/2024 14:16:06 09/02/19 25 09/01/2024 rapid strep group A, throa t Strep negati ve Not Available [facility] [address] [facility], [place], [address], 09/01/2024 10:28:34 06/23/19 25 06/17/2024 MAMMO , scree pranav, bilat eral No observ ation record ed. [facility] ([facility]) [address], [place], [address], 06/23/2024 16:13:25 Result Notes None recorded. Problems Name Problem SNOMED Code Status Onset Date Resolution Date Notes Provider Name and Address Organization Details Recorded Time Rheumatoid arthritis 13314693 Active 2024 CHERIE Borja [address] [place] [address], [address], [employer] 11:37:03 Essential hypertensio n 78292749 Active 2024 CHERIE Borja [address] [place] [address], [address] 8, [employer] 11:37:44 Depressive disorder 67915589 Active 2024 CHERIE Borja [address] [place] [address], [address] 8, [employer] 11:38:16 Vitamin D deficiency 22410351 Active 2024 CHERIE Borja [address] [place] [address], [address] 8, [employer] 11:38:40 Insomnia 370407824 Active 2024 CHERIE Borja [address] [place] [address], [address] 8, [employer] 11:38:56 Skin lesion 44645817 Active 2024 CHERIE Borja [address] [place] [address], [address] 8, [employer] 11:46:19 Burping 093195811 Active 2024 CHERIE Borja [address] [place] [address], [address] 8, [employer] 16:44:15 Gastroesoph ageal reflux disease without esophagitis 998164637 Active 2024 CHERIE Borja [address] [place] [address], [address] 8, [employer] 13:34:18 Acute bilateral otitis media 247128355 Completed 202412/01/2024 CHERIE Borja [address] [place] [address], [address] 8, [employer] 5 10:25:16 Problem Notes None recorded. Procedures Surgical History Date Name Laterality Status Provider Name and Address Organization Details Recorded Time 5 Most Recent Mammogram completed [employer] 09/01/2024 10:27:28 3 Date of Last Pap Smear completed [employer] 10/31/2024 13:47:33 Caesarean Section completed [employer] 06/03/2024 11:12:56 Joint Replacement completed [employer] 06/03/2024 11:12:56 Tubal Ligation completed [employer] 06/03/2024 11:12:56 Gallbladder Surgery completed [employer] 06/03/2024 11:12:56 Endometrial Biopsy completed [employer] 06/03/2024 11:12:56 Cosmetic Surgery completed [employer] 06/03/2024 11:12:56 Imaging Results None recorded. Procedure Notes None recorded. Medical Equipment None Reported. Allergies Allergen ID Allergen Name Allergen Category Reaction Reaction Severity Criticality Documentation Date Start Date Code Code System Note Provider Name and Address Organization Details Recorded Time 05000 lisinopri l medicatio n hives Not available Not available 06/03/2024 06759 [employer]Norm [facility] 5 11:15:46 Medications Name Sig Start Date Stop Date Status Note LastModified by Organization Details LastModified Time quetiapine 25 mg tablet TAKE 1 TABLET BY MOUTH ONCE DAILY AT BEDTIME FOR SLEEP FOR 90 DAYS 09/01 completed Not Available Not Available Not Available celecoxib 200 mg capsule TAKE 1 CAPSULE BY MOUTH ONCE DAILY active Not Available Not Available No t Available cyclobenzap rine 10 mg tablet TAKE 1 TABLET BY MOUTH THREE TIMES DAILY NEEDED FOR MUSCLE SPASM active Not Available Not Available No t Available amoxicillin 500 mg capsule TAKE 2 CAPSULES BY MOUTH TWICE DAILY FOR 14 DAYS 10/31 completed Not Available Not Available Not Available doxycycline hyclate 100 mg capsule TAKE 1 CAPSULE BY MOUTH TWICE DAILY active Not Available Not Available No t Available trazodone 50 mg tablet TAKE 1 TABLET BY MOUTH EVERY DAY AT BEDTIME NEEDED FOR SLEEP 10/31 completed Not Available Not Available Not Available azithromyci n 250 mg tablet TAKE 2 TABLETS BY MOUTH ON DAY 1, AND THEN TAKE 1 TABLET BY MOUTH ONCE A DAY ON DAY 2 THROUGH DAY 5 10/31 completed Not Available Not Available Not Available valacyclovi r 1 gram tablet TAKE 1 TABLET BY MOUTH TWICE DAILY 12/01 completed Not Available Not Available Not Available clarithromy gertrude 500 mg tablet TAKE 1 TABLET BY MOUTH EVERY 12 HOURS FOR 14 DAYS 10/31 completed Not Available Not Available Not Available prednisone 20 mg tablet TAKE 1 TABLET BY MOUTH TWICE DAILY FOR 5 DAYS 12/01 completed Not Available Not Available Not Available metoprolol succinate ER 100 mg tablet,exte nded release 24 hr Take 1 tablet every day by oral route as directed for 90 days. 2024 active Not Available Not Available Not Avai lable amoxicillin 500 mg tablet Take 2 tablets twice a day by oral route for 14 days. 10/31 completed Not Available Not Available Not Available trazodone 100 mg tablet TAKE 1 TABLET BY MOUTH ONCE DAILY AT BEDTIME FOR 90 DAYS 2024 active Not Available Not Available Not Avai lable erythromyci n 5 mg/gram (0.5 %) eye ointment APPLY A SMALL AMOUNT OF OINTMENT TO RIGHT EYE NIGHTLY active Not Available Not Available No t Available lansoprazol e 30 mg capsule,del ayed release TAKE 1 CAPSULE BY MOUTH TWICE DAILY FOR 14 DAYS 10/31 completed Not Available Not Available Not Available hydrochloro thiazide 25 mg tablet Take 1 tablet every day by oral route as directed for 90 days. 2024 active Not Available Not Available Not Avai lable methylpredn isolone 4 mg tablets in a dose pack TAKE BY MOUTH DIRECTED ON INSIDE OF PACKAGE 06/03 completed Not Available Not Available Not Available losartan 100 mg tablet TAKE 1 TABLET BY MOUTH ONCE DAILY DIRECTED 2024 active Not Available Not Available Not Avai lable amoxicillin 875 mg-potassiu m clavulanate 125 mg tablet TAKE 1 TABLET BY MOUTH EVERY 12 HOURS FOR 10 DAYS 12/01 completed Not Available Not Available Not Available oxycodone 5 mg tablet TAKE 1 TABLET BY MOUTH THREE TIMES A DAY FOR 28 DAYS. December active Not Available Not Available No t Available moxifloxaci n 0.5 % eye drops INSTILL 1 DROP INTO RIGHT EYE 4 TIMES DAILY active Not Available Not Available No t Available duloxetine 60 mg capsule,del ayed release TAKE 2 CAPSULES BY MOUTH ONCE DAILY DIRECTED FOR DEPRESSIO N 2024 active Not Available Not Available Not Avai labeevrett Vitamin D3 2000 daily 09/01 completed Not Available Not Available Not Available Vraylar 1.5 mg capsule Take 1 capsule by mouth once daily 2024 active Not Available Not Available Not Avai lable Xeljanz XR 11 mg tablet,exte nded release active Not Available Not Available Not Available ergocalcife rol (vitamin D2) 50 mcg (2,000 unit) capsule Take 1 capsule every day by oral route as directed for 90 days. 2024 active Not Available Not Available Not Avai chuy Vitals Date Recorded Body weight Body mass index (BMI) Body height Oxygen saturation Heart rate Body temperature Systolic And Diastolic Provider Name and Address Organization Details Last Updated DateTime 5 19579.2 9 g 31 kg/m2 170.18 cm 97 % 84 /min 97.9 [degF] 104/74 mm[Hg] [employer]zo, [employer] 5 11:17:58 Date Recorded Body height Body mass index (BMI) Body weight Body temperature Heart rate Oxygen saturation Systolic And Diastolic Provider Name and Address Organization Details Last Updated DateTime 5 170.18 cm 30.8 kg/m2 77010.9 8 g 98 [degF] 72 /min 96 % 114/80 mm[Hg] [employer] 5 10:25:31 Date Recorded Body height Body mass index (BMI) Body weight Oxygen saturation Heart rate Body temperature Systolic And Diastolic Systolic And Diastolic Provider Name and Address Organization Details Last Updated DateTime 5 170.18 cm 30.2 kg/m2 74064.3 3 g 97 % 72 /min 98.3 [degF] 96/64 mm[Hg] 90/60 mm[Hg] Aydee Macdonald [employer] 5 14:13:22 Date Recorded Body height Body mass index (BMI) Body weight Oxygen saturation Heart rate Body temperature Systolic And Diastolic Provider Name and Address Organization Details Last Updated DateTime 5 170.18 cm 29.8 kg/m2 67870.6 5 g 93 % 74 /min 97.6 [degF] 122/81 mm[Hg] Judy Castro [employer], [employer] 5 10:00:28 Social History Question Answer Notes LastModified by [email or web address] ion Details LastModified Time Tobacco Smoking Status Never Smoker Aydee Macdonald joan, [employer], [employer] 06/03/2024 11:12:55 Do You Have An Advance Directive? No Information not available 06/03/2024 Is Your Home Air Conditioned? Yes Information not available 06/03/2024 If You Are , What Was Your Level Of Alcohol Consumption Prior To ? None Information not available 06/03/2024 How Many Years Have You Consumed Alcohol? 30 Information not available 06/03/2024 Do You Wear A Helmet When Biking? No Information not available 06/03/2024 Are You Blind Or Do You Have Difficulty Seeing? No Information not available 06/03/2024 What Is Your Level Of Caffeine Consumption? Moderate Information not available 06/03/2024 What Type Of Rn Registry Do You Use? None Information not available 06/03/2024 Have You Been To An Area Known To Be High Risk For COVID-19? No Information not available 06/03/2024 Are You Deaf Or Do You Have Serious Difficulty Hearing? No Information not available 06/03/2024 What Type Of Diet Are You Following? REGULAR Information not available 06/03/2024 Have There Been Any Changes To Your Family Or Social Situation? Yes Information no t available 06/03/2024 Are There Any Guns Present In Your Home? Yes Information not available 06/03/2024 Which Of Your Hands Is Dominant? Right Information not available 06/03/2024 What Is Your Home Situation? Other Information not available 06/03/2024 Do You Have A Medical Power Of Outsole Paraffiner? No Information not available 06/03/2024 What Was The Date Of Your Most Recent Tobacco Screening? 12/01/2024 [email or web address] Information not available 12/01/2024 Do You Have Any Pets? Yes Information not available 06/03/2024 Do You Use Protection During Sex? No Information not available 06/03/2024 What Is Your Relationship Status? Information not available 06/03/2024 Have You Repeated Any Grades? No Information not available 06/03/2024 Do You Use Your Seat Belt Or Car Seat Routinely? Yes Information not available 06/03/2024 Are You Sexually Active? Yes Information not available 06/03/2024 Do You Have Any Siblings? Brother But Information not available 06/03/2024 Do You Have Smoke And Carbon Monoxide Detectors In Your Home? Yes Information not available 06/03/2024 Are You Passively Exposed To Smoke? No Information no t available 06/03/2024 Are There Any Smokers In Your House? No Information not available 06/03/2024 Do You Use Sunscreen Routinely? No Information not available 06/03/2024 Has Tobacco Cessation Counseling Been Provided? No Information not available 06/03/2024 Have You Recently Traveled Abroad? No Information not available 06/03/2024 Do You Have Difficulty Walking Or Climbing Stairs? No Information not available 06/03/2024 Are You Currently In School? No Information not available 06/03/2024 What Contraceptive Method Was Reported At Start Of This Visit? Female Sterilization Information not available 06/03/2024 Do You Have Any Dietary Restrictions? No Information not available 06/03/2024 How Many Days In The Past Year Have You Consumed 4 Or More Drinks? 0 Information no t available 06/03/2024 Sex: Female Functional Status Question Answer Note LastModified by Organizat ion Details LastModified Time Do you use any illicit or recreational drugs? No Information not available 06/03/2024 Do you or have you ever used any other forms of tobacco or nicotine? No Information not available 06/03/2024 What is your level of alcohol consumption? Occasional Information not available 06/03/2024 Are you currently employed? No Information not available 06/03/2024 Do you have transportation difficulties? No Information not available 06/03/2024 Are you able to walk independently without assistance or assistive devices? YESWOREST Information not available 06/03/2024 Do you have difficulty doing errands alone? No Information not available 06/03/2024 Are you able to care for yourself independently? Yes Information not available 06/03/2024 Do you have difficulty dressing, bathing, grooming, or toileting? No Information not available 06/03/2024 What is your exercise level? None Information not available 06/03/2024 Mental Status Question Answer Note LastModified by Organizat ion Details LastModified Time Do you feel stressed (tense, restless, nervous, or anxious, or unable to sleep at night)? [id number] Information not available 09/01/2024 Do you have difficulty concentrating, remembering or making decisions? Yes Information no t available 06/03/2024 Are you or have you been involved with bullying? No Information not available 06/03/2024 Family History Relationship Description Onset Age of this Age Resolved Age Notes LastModified by Organization Details LastModified Time Father Harmful pattern of use of alcohol Not available 2024 11:12:55 Father Arthritis Not available 06/03/2024 11:12:55 Father Hypertensive disorder Not available 2024 11:12:55 Father Heart disease Not available 2024 11:12:55 Paternal Grandmother Hypercholest erolemia Not available 2024 11:12:55 Paternal Grandmother Malignant neoplasm of breast Not available 2024 11:12:55 Paternal Grandmother Malignant neoplasm of ovary Not available 2024 11:12:55 Paternal Grandmother Arthritis Not available 05/08 11:12:55 Paternal Grandmother Hypertensive disorder Not available 2024 11:12:55 Mother Hypercholest erolemia Not available 2024 11:12:55 Mother Depressive disorder Not available 2024 11:12:55 Mother Arthritis Not available 06/03/2024 11:12:55 Mother Hypertensive disorder Not available 2024 11:12:55 Mother Heart disease Not available 2024 11:12:55 Mother Kidney disease Not available 2024 11:12:55 Maternal Grandmother Malignant neoplasm of breast Not available 2024 11:12:55 Maternal Grandmother Malignant neoplasm of uterus Not available 2024 11:12:55 Maternal Grandfather Heart disease Not available 2024 11:12:55 Paternal Grandfather Heart disease Not available 2024 11:12:55 Medical History Condition Response Coronary Artery Disease N Other N Gout N Blood Diseases N Kidney Stones N Hyperthyroidism N Blood Transfusion N Breast Cancer N Emergency room visit since last appointm ent. N Lung Disease N COPD N Depression N Dermatologic Disorders N Hypothyroidism N Defects or Inherited Disease N Developmental or Behavioral Disorders N Breast Problem N Difficulty Swallowing N Anesthesia Complications N History of STI N Anxiety Disorder N Meniere's disease N Autoimmune disease N Muscle, Joint, or Bone Problems N Obesity Y Vision or Eye Problems N Arthritis N Infertility N Polyps N Mental Disorder N Congenital Anomalies N Acid Reflux (GERD) N Cancer N Stroke N Neurologic/Epilepsy N Endometriosis N Bladder or Kidney Problems N High Cholesterol N Liver Disease N Organ Transplant N Psychiatric/Mental Health Condition N Rheumatoid Arthritis Y Dialysis N Schizophrenia N Headaches N Fibromyalgia N Kidney Disease N Allergies/Hayfever N Heart Problems N Ear or Hearing Problems N Hospitalizations N Learning Disorder N Artificial Joints N Thyroid Problems N GI Problems N Acne N ADD/ADHD N Eating Disorder N Anemia N Constipation N Mental Illness N Diabetes N Ovarian Cancer N Bedwetting N Hepatitis/Liver Disease N Tuberculosis N Eczema N Abuse/Domestic Violence N Diverticulitis N Asthma N Trauma/Violence N Substance Abuse N Reflux/GERD N Depression/ depression N Hepatitis N Heart Disease N Pulmonary Embolism N Tourette Syndrome N Chronic Ear Infections N Pre-Eclampsia N Hypertension Y Chicken Pox N Autism Spectrum Disorder (ASD) N Osteoporosis N Thrombophilias N Gynecological History Statement/Question Response Abnormal Pap N Menses Monthly N HPV Vaccine N Date of Last Pap Smear 01/01/2023 Current Control Method Tubal Ligat ion Age at Menarche 49 Most Recent Mammogram 06/17/2024 Age at First Child 15 Obstetrics History GPAL:G 1 P 1 0 0 1 Type Value Multiple Births 0 Full Term 1 Induced 0 Spontaneous 0 Premature 0 Living 1 Ectopics 0 Total 1 Immunizations Vaccine Type Date Status Note Provider Nam e and Address Organization Details Recorded Time Influenza, injectable,quadriv alent, preservative free, pediatric 0 completed Aydee Vice null, [facility] 06/03/2024 11:13:05 COVID-19 vaccine, vector-nr, rS-Ad26, PF, 0.5 mL 1 completed Aydee Vice null, [facility] 06/03/2024 11:13:05 Past Encounters Encounter ID Performer Location Encounter Start Date Encounter Closed Date Diagnosis/Indication Diagnosis SNOMED-CT Code Diagnosis ICD10 Code Diagnosis IMO Codes Diagnosis Note [id number] CHERIE Borja [address] [address] 06/03/2024 10:58:58 06/03/2024 11:48:16 Screening mammography 19811306 Z12.31 Depressive disorder 3548 9007 F32.A High screen on PHQ, but discussed with patient - loss of daughter, but needs nothign but time Insomnia 057645399 G47.0 0 Essential hypertension 59648093 I10 Rheumatoid arthritis 698 51294 M06.9 Vitamin D deficiency 347 89771 E55.9 Skin lesion 53411156 L98 .9 [id number] CHERIE Borja [facility] [address] [place] [id number] 09/01/2024 10:16:59 09/01/2024 11:31:42 Sore throat 287109935 J02.9 Essential hypertension 25039224 I10 Vitamin D deficiency 347 66876 E55.9 Thyroid di sorder screening 406912456 Z13.29 HIV screening 591364676 Z11.4 Hepatitis C screening 41 4949062 Z11.59 Acute sinusitis 76033772 J01.90 Insomnia 935537075 G47.0 0 Burping 432897984 R14.2 H Pylori positive - will send Prevpa [id number] CHERIE Borja [facility] [address] [place] [id number] 10/31/2024 13:21:41 10/31/2024 14:25:49 Acute bilateral otitis media 543550829 H66.93 5087340 Rest, fluids. RTC if not improving. [id number] CHERIE Borja [facility] [address] [place] [id number] 12/01/2024 09:52:06 12/01/2024 10:34:16 Depressive disorder 63325153 F32.A Trial Vraylar Vitamin D deficiency 347 03852 E55.9 Essential hypertension 06941723 I10 Insomnia 585720980 G47.0 0 Rheumatoid arthritis 698 14106 M06.9 Health Concerns Section Related Observation LastModified by Organization Detai ls LastModified Time None Recorded Concern Status LastModified by Organization Details LastModified Time None Recorded Advance Directives Directive N: Payers Insurance Date Sequence Insurance Name Policy Number Policy Sharma Covered Member ID Sharma Member ID Guarantor Name 11/28/2024 MEDICARE [place] CIGNA [facility] [id number] Glendy Maya [id number] Glendy Maya 11/28/2024 1 [employer] (MEDICARE REPLACEMENT/A DVANTAGE - PPO) [id number] Glendy Maya [id number] Glendy Maya Notes Date Note Type Note Provider Name and Address Organization Details Recorded Time 06/03/2024 text/html Patient presents to establish care.History of depression. Takes cymbalta. Overall doing well, but lost her daughter a year ago and that has been hard. Doesn't think she needs anything for that except time.History of insomnia. Trazodone works well.History of HTN. Denies headache, chest pain, dsypnea, vertigo.History of RA.Has a lesion above her left eyebrow and would like dermatology referral. CHERIE Borja [address] [place], [address], [employer] 06/05/2024 12:12:26 09/01/2024 text/html ROS as noted in the HPI Patient presents for followup. Has had cough, sinus pressure, headache, congestion for over a week.C/O frequent burping and flatulence.No fever.No abdominal pain. No vomiting or diarrhea. CHERIE Borja [address] [place], [address], [employer] 09/02/2024 16:46:18 10/31/2024 text/html ROS as noted in the HPI Sore throat, sinus pain and pressure for a few weeks. Now has left ear pain radiating into jaw. No fever. CHERIE Borja [address] [place], [address], [employer] 10/31/2024 15:51:06 12/01/2024 text/html ROS as noted in the HPI Patient presents for followup. Has a history of depression, HTN, insomnia, Vitamin D deficiency. Has rheumatoid arthritis. Takes Cymbalta for depression and pain. Still sad. She lost her daughter last year and then just recently ended a 25+ year relationship recently. CHERIE Borja [address] [place], [address], [employer] 12/01/2024 12:56:44 OBGyn Episode No OBEpisode recorded.
--- OUTSIDE RECORDS SUMMARY | 2025-04-22 19:45 | XMS_ITS | Clinical Summary ---
Author Organization Healthcare Address [address] [place] [address] Care Team Providers Care Fuel Testing Technician Name Role Phone Naila Ruelas MD Primary Care Provider [phone] Family History Medical History Relation Name Comments Conversions - Other Father malignan t neoplasm of testis Hypertension Father Cardiac disorder Mother Depression Mother Hypertension Mother Kidney disease Mother Relation Name Status Comments Father Mother Social History Tobacco Use Types Packs/Day Years Used Date Smoking Tobacco: Never Alcohol Use Standard Drinks/Week Comments Yes 0 (1 standard drink = 0.6 oz pur e alcohol) Comments Unknown Sex and Gender Information Value Date Recorded Sex Assigned at Not on file Legal Sex Female 6:40 PM EDT Gender Identity Not on file Sexual Orientation Not on file Last Filed Vital Signs Vital Sign Reading Time Taken Comments Blood Pressure 129/86 01/31/2018 8:50 AM EDT Pulse - - Temperature - - Respiratory Rate - - Oxygen Saturation - - Inhaled Oxygen Concentration - - Weight 99 kg (218 lb 4.1 oz) 01/31/2018 8:50 AM EDT Height 172.7 cm (5' 8 ) 01/31/2018 8:50 AM EDT Body Mass Index 33.19 01/31/2018 8:50 AM EDT Plan of Treatment Health Maintenance Due Date Last Done Comments [facility]-Depression Screening 1969 [facility]-Infant/Child/Adol SDOH Screenings 1969 [facility]- SDOH Screenings 10/02/1987 [facility]-Adult SDOH Screenings 10/02/1987 [facility]-DTaP,Tdap,and Td Vaccine s (1 - Tdap) 1988 [facility]-Hepatitis B Vaccines (1 of 3 - 19+ 3-dose series) 1988 [facility]-Pap Smear 1990 [facility]-Cervical Cancer Screening 10/02/1999 [facility]-HPV/Cotest 10/02/1999 CT Colonography 2014 Colonoscopy 2014 FIT-DNA 2014 FIT 2014 FOBT 2014 Sigmoidoscopy 2014 [facility]-Colorectal Cancer Screening 2014 [facility]-Pneumococcal Vaccine: 50 + Years (1 of 1 - PCV) 10/02/2019 [facility]-Zoster Vaccines (1 of 2) 10/02/2019 [id number] Vaccine (1 - 20 25-26 season) 2025 [facility]-Influenza Vaccine (#1) 2025 HPV Vaccines (No Doses Required) Completed [facility]-HIB Vaccines Aged Out No longer e ligible based on patient's age to complete this topic [facility]-Hepatitis A Vaccines Aged Out No longer eligible based on patient's age to complete this topic [facility]-IPV Vaccines Aged Out No longer e ligible based on patient's age to complete this topic [facility]-Rotavirus Vaccines Aged Out No lo nger eligible based on patient's age to complete this topic Care Teams Fuel Testing Technician Relationship Specialty Start Date End [place] [address] PCP - General 09/17/20
--- OUTSIDE RECORDS SUMMARY | 2025-04-22 19:45 | XMS_ITS | Patient Health Record ---
Author Organization [facility] Address [address] [place] [address] Care Team Providers Care Satellite Tv Technician Name Role Phone ОлегAkash welch II Unavailable [phone] [place] SURGICAL INSTRUMENT TECHNICIAN [facility] Unavailab le Unavailable Allergies Allergen (clinical drug [...] NEG Methadone (MTD) NEG Opiate (OPI) NEG Urine Test ANALYZER Reviewed date:05/02/2024 07:54:06 AM Interpretation:+OXY+OPI Performing Lab: Notes/Report: +OXY+OPI Heroin Metabolite (6AM) NEG Amphetamine (AMP) NEG Benzodiazepine (YAMILKA) NEG Buprenorphine NEG Cocaine (CHADD) NEG Hydrocodone (HYD) NEG Methadone (MTD) NEG Opiate (OPI) POS Oxycodone (OXY) POS Urine Test ANALYZER Reviewed date:07/01/2024 10:13:32 AM Interpretation:+OPI +OXY Performing Lab: Notes/Report: +OPI +OXY Heroin Metabolite (6AM) NEG Amphetamine (AMP) NEG Benzodiazepine (YAMILKA) NEG Buprenorphine NEG Cocaine (CHADD) NEG Hydrocodone (HYD) NEG Methadone (MTD) NEG Opiate (OPI) POS Oxycodone (OXY) POS Urine Test ANALYZER Reviewed date:09/03/2024 09:20:57 AM Interpretation:+OPI +OXY Performing Lab: Notes/Report: +OPI +OXY Heroin Metabolite (6AM) NEG Amphetamine (AMP) NEG Benzodiazepine (YAMILKA) NEG Buprenorphine NEG Cocaine (CHADD) NEG Hydrocodone (HYD) NEG Methadone (MTD) NEG Opiate (OPI) POS Oxycodone (OXY) POS Urine Test ANALYZER Reviewed date:11/03/2024 06:56:36 AM Interpretation:+AMP +OPI +OXY Performing Lab: Notes/Report: +AMP +OPI +OXY Heroin Metabolite (6AM) NEG Amphetamine (AMP) POS Benzodiazepine (YAMILKA) NEG Buprenorphine NEG Cocaine (CHADD) NEG Hydrocodone (HYD) NEG Methadone (MTD) NEG Opiate (OPI) POS Oxycodone (OXY) POS Urine Test ANALYZER Reviewed date:01/01/2025 11:29:10 AM Interpretation:+OXY Performing Lab: Notes/Report: +OXY Heroin Metabolite (6AM) NEG Amphetamine (AMP) NEG Benzodiazepine (YAMILKA) NEG Buprenorphine NEG Cocaine (CHADD) NEG Methadone (MTD) NEG Opiate (OPI) NEG Oxycodone (OXY) POS Reason For Referral No Information Medications Medication SIG (Take, Route, Frequency, Duration) Notes Start Date End Date Status metoprolol 100 mg 1 tab(s) orally once a day; Duration: 30 day(s) Active Vraylar 1.5 mg 1 cap(s) orally once a day Active celecoxib 200 mg TAKE 1 CAPSULE BY MOUTH ONCE DAILY; Duration: 90 Active Vitamin D3 2000 intl units as directed orally once a day; Duration: 30 day(s) Active OxyCODONE Hydrochloride 5 mg 1 tab(s) orally 3 times a day; Duration: 28 days February 2025 RX DO NOT FILL SOONER THAN 28 DAYS, (OK TO FILL EARLY, ONLY IF CLOSED) 03/03/2025 Active Xeljanz XR 11 mg TAKE 1 TABLET BY MOUTH ONCE DAILY; Duration: 30 Active hydroCHLOROthiazide 25 mg TAKE 1 TABLET BY MOUTH ONCE DAILY IN THE MORNING; Duration: 90 Active DULoxetine 60 mg 1 cap(s) orally once a day; Duration: 30 day(s) 07/29/2020 Active OxyCODONE Hydrochloride 5 mg 1 tab(s) orally 3 times a day; Duration: 28 March 2025 RX DO NOT FILL SOONER THAN 28 DAYS, (OK TO FILL EARLY, ONLY IF CLOSED) 03/03/2025 Active cyclobenzaprine 10 mg 1 tab(s) orally 3 times a day 07/29/2020 Active traZODone 50 mg as directed orally 03/20/2022 Active losartan 100 mg ; Duration: 30 Active Problems Problem Type SNOMED Code ICD Code Onset Dates Problem Status W/U Status Risk Notes Problem Chronic pain syndrome (444813670) Chronic pain syndrome (G89.4) Active confirmed Problem Rheumatoid arthritis (66005241) Rheumatoid arthritis with rheumatoid factor, unspecified (M05.9) Active confirmed Problem Osteoarthritis of knee (364768301) Bilateral primary osteoarthritis of knee (M17.0) Active confirmed Problem Cervical spondylosis without myelopathy (347308578) Other spondylosis with radiculopathy, cervical region (M47.22) Active confirmed Problem Lumbosacral spondylosis without myelopathy (80067013) Other spondylosis with radiculopathy, lumbar region (M47.26) Active confirmed Problem Cervical spondylosis without myelopathy (990243239) Spondylosis without myelopathy or radiculopathy, cervical region (M47.812) Active confirmed Problem Cervical spondylosis without myelopathy (704593100) Spondylosis without myelopathy or radiculopathy, 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) Active confirmed Problem Lumbosacral spondylosis without myelopathy (78599668) Spondylosis without myelopathy or radiculopathy, lumbar region (M47.816) Active confirmed Problem Long-term current use of drug therapy (778509031) Other correction (current) drug therapy (Z79.899) Active confirmed Problem Cervical radiculopathy (95304084) cervical radiculopathy (M54.12) Active confirmed Vital Signs Heart Rate 68 /min 03/03/2025 Blood pressure diastolic 96 mm Hg 03/03/2025 Height 67 in 03/03/2025 Blood pressure systolic 140 mm Hg 03/03/2025 Weight 184 lbs 03/03/2025 BMI 28.82 kg/m2 03/03/2025 Encounters Encounter Location Date Provider Diagnosis [facility] [address] [place] [address] 05/01/2024 Akash Gonzalez Spondylosis without myelopathy or radiculopathy, 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 ; Other information security specialist (current) drug therapy Z79.899 ; Rheumatoid arthritis with rheumatoid factor, unspecified M05.9 ; cervical radiculopathy M54.12 ; Spondylosis without myelopathy or radiculopathy, lumbar region M47.816 ; Other fecal abnormalities R19.5 and Bilateral primary osteoarthritis of knee M17.0 [facility] [address] [place] [address] 07/01/2024 Akash Gonzalez Spondylosis without myelopathy or radiculopathy, 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 ; Other correction (current) drug therapy Z79.899 ; Rheumatoid arthritis with rheumatoid factor, unspecified M05.9 ; cervical radiculopathy M54.12 ; Spondylosis without myelopathy or radiculopathy, lumbar region M47.816 ; Other fecal abnormalities R19.5 and Bilateral primary osteoarthritis of knee M17.0 [facility] [address] [place] [address] 09/02/2024 Akash Gonzalez [facility] [address] [place] [address] 10/31/2024 Akash Gonzalez Spondylosis without myelopathy or radiculopathy, 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 ; Other correction (current) drug therapy Z79.899 ; Rheumatoid arthritis with rheumatoid factor, unspecified M05.9 ; cervical radiculopathy M54.12 ; Spondylosis without myelopathy or radiculopathy, lumbar region M47.816 ; Other fecal abnormalities R19.5 and Bilateral primary osteoarthritis of knee M17.0 [facility] [address] [place] [address] 01/01/2025 Akash Gonzalez Spondylosis without myelopathy or radiculopathy, 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 ; Other information security specialist (current) drug therapy Z79.899 ; Rheumatoid arthritis with rheumatoid factor, unspecified M05.9 ; cervical radiculopathy M54.12 ; Spondylosis without myelopathy or radiculopathy, lumbar region M47.816 ; Other fecal abnormalities R19.5 and Bilateral primary osteoarthritis of knee M17.0 [facility] [address] [place] [address] 01/19/2025 Akash Gonzalez Bilateral primary osteoarthritis of knee M17.0 [facility] [address] [place] [address] 03/03/2025 Akash Gonzalez Spondylosis without myelopathy or radiculopathy, 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 ; Other correction (current) drug therapy Z79.899 ; Rheumatoid arthritis with rheumatoid factor, unspecified M05.9 ; cervical radiculopathy M54.12 ; Spondylosis without myelopathy or radiculopathy, lumbar region M47.816 ; Other fecal abnormalities R19.5 and Bilateral primary osteoarthritis of knee M17.0 [facility] [address] [place] [address] 05/01/2024 Akash Gonzalez Other correction (current) drug therapy Z79.899 [facility] [address] [place] [address] 07/01/2024 Akash Gonzalez Other information security specialist (current) drug therapy Z79.899 [facility] [address] [place] [address] 09/02/2024 Akash Gonzalez Other correction (current) drug therapy Z79.899 [facility] [address] [place] [address] 10/31/2024 Akash Gonzalez Other correction (current) drug therapy Z79.899 [facility] [address] [place] [address] 01/01/2025 Akash Gonzalez Other correction (current) drug therapy Z79.899 [facility] [address] [place] [address] 03/03/2025 Akash Gonzalez Other correction (current) drug therapy Z79.899 Assessments Encounter Date Diagnosis (ICD Code) Assessment Notes Treatment Notes Treatment Clinical Notes Section Notes 05/01/2024 Other information security specialist (current) drug therapy (ICD-10 - Z79.899) 07/01/2024 Spondylosis without myelopathy or radiculopathy, 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 She has cervical spine pain with LUE radiculopathy, as well as rheumatoid arthritis. She is supplementing pain meds with tylenol at night. She is s/p RFA AB RFA L3/L4/L5 with great relief. Today she also reports left knee pain and states that she is using topical applications of Aspercreme plus lidocaine successfully. She is scheduled for a #4 left knee IA injection on 11/01/2023. She is currently taking oxycodone HCl 5mg TID with some relief and she denies any adverse side effects. She states her thoracic pain has improved with the ablation. No recent changes reported. Harvey and UDS have been reviewed and are compliant. Medication refill and F/u in 2 months. 07/01/2024 Romy is here today for follow up and medication refills. Complains of right wrist and left side neck pain. Rates her pain a 6 at todays visit. Patient believes wrist pain is related where she has added weights to her exercise routine. Patient encouraged to wear a support brace during exercises. Continues to receive adequate pain relief from the prescribed regimen. Will continue current medications regimen, she denies side effects to the prescribed regimen. She is doing his HEP. Most recent UDS and HARVEY reviewed. Will have her follow up in 2 months. 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 She has cervical spine pain with LUE radiculopathy, as well as rheumatoid arthritis. She is supplementing pain meds with tylenol at night. She is s/p RFA AB RFA L3/L4/L5 with great relief. Today she also reports left knee pain and states that she is using topical applications of Aspercreme plus lidocaine successfully. She is scheduled for a #4 left knee IA injection on 11/01/2023. She is currently taking oxycodone HCl 5mg TID with some relief and she denies any adverse side effects. She states her thoracic pain has improved with the ablation. No recent changes reported. Harvey and UDS have been reviewed and are compliant. Medication refill and F/u in 2 months. 07/01/2024 Romy is here today for follow up and medication refills. Complains of right wrist and left side neck pain. Rates her pain a 6 at todays visit. Patient believes wrist pain is related where she has added weights to her exercise routine. Patient encouraged to wear a support brace during exercises. Continues to receive adequate pain relief from the prescribed regimen. Will continue current medications regimen, she denies side effects to the prescribed regimen. She is doing his HEP. Most recent UDS and HARVEY reviewed. Will have her follow up in 2 months. 10/31/2024 he patient is a 54-year-old female with a history of rheumatoid arthritis who presents today with primary complaints of chronic cervical neck pain and bilateral wrist discomfort. She describes her pain as aching, burning, and sharp, with a fluctuating intensity and an average pain score of 8/10. The pain is aggravated by activities such as walking and cleaning, and is relieved with rest, heating pad use, massage, and her current medications. She is currently prescribed Oxycodone 5/325mg TID, which provides approximately 50% pain relief for about two hours. She denies any adverse effects from her medications. She also uses adjunctive therapies including celecoxib, cyclobenzaprine, duloxetine, heating pad, and massage as part of her pain management regimen. Her most recent injection was on 11/01/2023 to the left knee, which provided 75% relief for approximately three months. At this time, she declines further injection therapy. We will continue her current opioid and adjunct medication regimen. She is to maintain her home exercise program and conservative measures. Harvey and UDS were reviewed and found to be compliant. The opioid risk assessment is moderate. The patient will follow up in two months for reassessment, or sooner if symptoms worsen. 01/01/2025 54 year old female presents for f/u. pain located left knee. currently taking oxycodone, no side effects to medication. tolerates well, admits this doesn't help the pain other than the one she takes in the morning with the celebrex, and then at night takes tylenol with it and that helps it work better, but by itself it doesn't help at all. hasn't spoke with an MD about this, didn't know she could, so she is requesting to see MD at f/u. harvey and kevyn reviewed. no changes since last visit. will schedule left knee IA. 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 The patient was evaluated by the medical surgical tech and a urine drug screen was obtained [...] effects. No recent changes reported. Harvey and KEVYN have been reviewed and are compliant. Medication refill and F/u in 2 months. 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 She has cervical spine pain with LUE radiculopathy, as well as rheumatoid arthritis. She is supplementing pain meds with tylenol at night. She is s/p RFA AB RFA L3/L4/L5 with great relief. Today she also reports left knee pain and states that she is using topical applications of Aspercreme plus lidocaine successfully. She is scheduled for a #4 left knee IA injection on 11/01/2023. She is currently taking oxycodone HCl 5mg TID with some relief and she denies any adverse side effects. She states her thoracic pain has improved with the ablation. No recent changes reported. Harvey and UDS have been reviewed and are compliant. Medication refill and F/u in 2 months. 07/01/2024 Romy is here today for follow up and medication refills. Complains of right wrist and left side neck pain. Rates her pain a 6 at todays visit. Patient believes wrist pain is related where she has added weights to her exercise routine. Patient encouraged to wear a support brace during exercises. Continues to receive adequate pain relief from the prescribed regimen. Will continue current medications regimen, she denies side effects to the prescribed regimen. She is doing his HEP. Most recent UDS and HARVEY reviewed. Will have her follow up in 2 months. 10/31/2024 he patient is a 54-year-old female with a history of rheumatoid arthritis who presents today with primary complaints of chronic cervical neck pain and bilateral wrist discomfort. She describes her pain as aching, burning, and sharp, with a fluctuating intensity and an average pain score of 8/10. The pain is aggravated by activities such as walking and cleaning, and is relieved with rest, heating pad use, massage, and her current medications. She is currently prescribed Oxycodone 5/325mg TID, which provides approximately 50% pain relief for about two hours. She denies any adverse effects from her medications. She also uses adjunctive therapies including celecoxib, cyclobenzaprine, duloxetine, heating pad, and massage as part of her pain management regimen. Her most recent injection was on 11/01/2023 to the left knee, which provided 75% relief for approximately three months. At this time, she declines further injection therapy. We will continue her current opioid and adjunct medication regimen. She is to maintain her home exercise program and conservative measures. Harvey and UDS were reviewed and found to be compliant. The opioid risk assessment is moderate. The patient will follow up in two months for reassessment, or sooner if symptoms worsen. 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 She has cervical spine pain with LUE radiculopathy, as well as rheumatoid arthritis. She is supplementing pain meds with tylenol at night. She is s/p RFA AB RFA L3/L4/L5 with great relief. Today she also reports left knee pain and states that she is using topical applications of Aspercreme plus lidocaine successfully. She is scheduled for a #4 left knee IA injection on 11/01/2023. She is currently taking oxycodone HCl 5mg TID with some relief and she denies any adverse side effects. She states her thoracic pain has improved with the ablation. No recent changes reported. Harvey and UDS have been reviewed and are compliant. Medication refill and F/u in 2 months. 05/01/2024 Romy is here today for follow up and medication refills. Complains of lower back and left side neck pain. Rates her pain a 6 at todays visit. Patient reports that she currently on Medrol dose edward that was prescribed by rheumatology. Neck pain symptons slowly resolving from steriods. Continues to receive adequate pain relief from the prescribed regimen. Will continue current medications regimen, she denies side effects to the prescribed regimen. She is doing his HEP. Most recent UDS and HARVEY reviewed. Will have her follow up in 2 months. 05/01/2024 Other information security specialist (current) drug therapy (ICD-10 - Z79.899) 05/01/24 1 Refill oxycocone HCl 5mg TID 2 F/U 2 months Glendy presents for follow up visit and medication refill. She has cervical spine pain with LUE radiculopathy, as well as rheumatoid arthritis. She is supplementing pain meds with tylenol at night. She is s/p RFA AB RFA L3/L4/L5 with great relief. Today she also reports left knee pain and states that she is using topical applications of Aspercreme plus lidocaine successfully. She is scheduled for a #4 left knee IA injection on 11/01/2023. She is currently taking oxycodone HCl 5mg TID with some relief and she denies any adverse side effects. She states her thoracic pain has improved with the ablation. No recent changes reported. Harvey and UDS have been reviewed and are compliant. Medication refill and F/u in 2 months. 05/01/2024 Romy is here today for follow up and medication refills. Complains of lower back and left side neck pain. Rates her pain a 6 at todays visit. Patient reports that she currently on Medrol dose edward that was prescribed by rheumatology. Neck pain symptons slowly resolving from steriods. Continues to receive adequate pain relief from the prescribed regimen. Will continue current medications regimen, she denies side effects to the prescribed regimen. She is doing his HEP. Most recent UDS and HARVEY reviewed. Will have her follow up in 2 months. 05/01/2024 Rheumatoid arthritis with rheumatoid factor, unspecified (ICD-10 - M05.9) Glendy presents for follow up visit and medication refill. She has cervical spine pain with LUE radiculopathy, as well as rheumatoid arthritis. She is supplementing pain meds with tylenol at night. She is s/p RFA AB RFA L3/L4/L5 with great relief. Today she also reports left knee pain and states that she is using topical applications of Aspercreme plus lidocaine successfully. She is scheduled for a #4 left knee IA injection on 11/01/2023. She is currently taking oxycodone HCl 5mg TID with some relief and she denies any adverse side effects. She states her thoracic pain has improved with the ablation. No recent changes reported. Harvey and UDS have been reviewed and are compliant. Medication refill and F/u in 2 months. 05/01/2024 Romy is here today for follow up and medication refills. Complains of lower back and left side neck pain. Rates her pain a 6 at todays visit. Patient reports that she currently on Medrol dose edward that was prescribed by rheumatology. Neck pain symptons slowly resolving from steriods. Continues to receive adequate pain relief from the prescribed regimen. Will continue current medications regimen, she denies side effects to the prescribed regimen. She is doing his HEP. Most recent UDS and HARVEY reviewed. Will have her follow up in 2 months. 10/31/2024 Other correction (current) drug therapy (ICD-10 - Z79.899) 10/31/2024 1 Refill oxycocone HCl 5mg TID 2 F/U 2 months Glendy presents for follow up visit and medication refill. She has cervical spine pain with LUE radiculopathy, as well as rheumatoid arthritis. She is supplementing pain meds with tylenol at night. She is s/p RFA AB RFA L3/L4/L5 with great relief. Today she also reports left knee pain and states that she is using topical applications of Aspercreme plus lidocaine successfully. She is scheduled for a #4 left knee IA injection on 11/01/2023. She is currently taking oxycodone HCl 5mg TID with some relief and she denies any adverse side effects. She states her thoracic pain has improved with the ablation. No recent changes reported. Harvey and UDS have been reviewed and are compliant. Medication refill and F/u in 2 months. 07/01/2024 Romy is here today for follow up and medication refills. Complains of right wrist and left side neck pain. Rates her pain a 6 at todays visit. Patient believes wrist pain is related where she has added weights to her exercise routine. Patient encouraged to wear a support brace during exercises. Continues to receive adequate pain relief from the prescribed regimen. Will continue current medications regimen, she denies side effects to the prescribed regimen. She is doing his HEP. Most recent UDS and HARVEY reviewed. Will have her follow up in 2 months. 10/31/2024 he patient is a 54-year-old female with a history of rheumatoid arthritis who presents today with primary complaints of chronic cervical neck pain and bilateral wrist discomfort. She describes her pain as aching, burning, and sharp, with a fluctuating intensity and an average pain score of 8/10. The pain is aggravated by activities such as walking and cleaning, and is relieved with rest, heating pad use, massage, and her current medications. She is currently prescribed Oxycodone 5/325mg TID, which provides approximately 50% pain relief for about two hours. She denies any adverse effects from her medications. She also uses adjunctive therapies including celecoxib, cyclobenzaprine, duloxetine, heating pad, and massage as part of her pain management regimen. Her most recent injection was on 11/01/2023 to the left knee, which provided 75% relief for approximately three months. At this time, she declines further injection therapy. We will continue her current opioid and adjunct medication regimen. She is to maintain her home exercise program and conservative measures. Harvey and UDS were reviewed and found to be compliant. The opioid risk assessment is moderate. The patient will follow up in two months for reassessment, or sooner if symptoms worsen. 03/03/2025 Other correction (current) drug therapy (ICD-10 - Z79.899) 03/03/2025 1 Refill oxycocone HCl 5mg TID 2 F/U 2 months with 03/03/2025 The patient presents to the [facility] office in [place], [place] for an audio-telemedici ne visit. The patient was evaluated by the medical surgical tech and a urine drug screen was obtained [...] Medication refill and F/u in 2 months. 01/01/2025 Other correction (current) drug therapy (ICD-10 - Z79.899) 01/01/2025 1 Refill oxycocone HCl 5mg TID 2 F/U 2 months with MD RomeoGlendy presents for follow up visit and medication refill. She has cervical spine pain with LUE radiculopathy, as well as rheumatoid arthritis. She is supplementing pain meds with tylenol at night. She is s/p RFA AB RFA L3/L4/L5 with great relief. Today she also reports left knee pain and states that she is using topical applications of Aspercreme plus lidocaine successfully. She is scheduled for a #4 left knee IA injection on 11/01/2023. She is currently taking oxycodone HCl 5mg TID with some relief and she denies any adverse side effects. She states her thoracic pain has improved with the ablation. No recent changes reported. Harvey and UDS have been reviewed and are compliant. Medication refill and F/u in 2 months. 07/01/2024 Romy is here today for follow up and medication refills. Complains of right wrist and left side neck pain. Rates her pain a 6 at todays visit. Patient believes wrist pain is related where she has added weights to her exercise routine. Patient encouraged to wear a support brace during exercises. Continues to receive adequate pain relief from the prescribed regimen. Will continue current medications regimen, she denies side effects to the prescribed regimen. She is doing his HEP. Most recent UDS and HARVEY reviewed. Will have her follow up in 2 months. 10/31/2024 he patient is a 54-year-old female with a history of rheumatoid arthritis who presents today with primary complaints of chronic cervical neck pain and bilateral wrist discomfort. She describes her pain as aching, burning, and sharp, with a fluctuating intensity and an average pain score of 8/10. The pain is aggravated by activities such as walking and cleaning, and is relieved with rest, heating pad use, massage, and her current medications. She is currently prescribed Oxycodone 5/325mg TID, which provides approximately 50% pain relief for about two hours. She denies any adverse effects from her medications. She also uses adjunctive therapies including celecoxib, cyclobenzaprine, duloxetine, heating pad, and massage as part of her pain management regimen. Her most recent injection was on 11/01/2023 to the left knee, which provided 75% relief for approximately three months. At this time, she declines further injection therapy. We will continue her current opioid and adjunct medication regimen. She is to maintain her home exercise program and conservative measures. Harvey and UDS were reviewed and found to be compliant. The opioid risk assessment is moderate. The patient will follow up in two months for reassessment, or sooner if symptoms worsen. 01/01/2025 54 year old female presents for f/u. pain located left knee. currently taking oxycodone, no side effects to medication. tolerates well, admits this doesn't help the pain other than the one she takes in the morning with the celebrex, and then at night takes tylenol with it and that helps it work better, but by itself it doesn't help at all. hasn't spoke with an MD about this, didn't know she could, so she is requesting to see MD at f/u. harvey and avels reviewed. no changes since last visit. will schedule left knee IA. 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 She has cervical spine pain with LUE radiculopathy, as well as rheumatoid arthritis. She is supplementing pain meds with tylenol at night. She is s/p RFA AB RFA L3/L4/L5 with great relief. Today she also reports left knee pain and states that she is using topical applications of Aspercreme plus lidocaine successfully. She is scheduled for a #4 left knee IA injection on 11/01/2023. She is currently taking oxycodone HCl 5mg TID with some relief and she denies any adverse side effects. She states her thoracic pain has improved with the ablation. No recent changes reported. Harvey and AVELS have been reviewed and are compliant. Medication refill and F/u in 2 months. 07/01/2024 Romy is here today for follow up and medication refills. Complains of right wrist and left side neck pain. Rates her pain a 6 at todays visit. Patient believes wrist pain is related where she has added weights to her exercise routine. Patient encouraged to wear a support brace during exercises. Continues to receive adequate pain relief from the prescribed regimen. Will continue current medications regimen, she denies side effects to the prescribed regimen. She is doing his HEP. Most recent UDS and HARVEY reviewed. Will have her follow up in 2 months. 07/01/2024 Rheumatoid arthritis with rheumatoid factor, unspecified (ICD-10 - M05.9) Glendy presents for follow up visit and medication refill. She has cervical spine pain with LUE radiculopathy, as well as rheumatoid arthritis. She is supplementing pain meds with tylenol at night. She is s/p RFA AB RFA L3/L4/L5 with great relief. Today she also reports left knee pain and states that she is using topical applications of Aspercreme plus lidocaine successfully. She is scheduled for a #4 left knee IA injection on 11/01/2023. She is currently taking oxycodone HCl 5mg TID with some relief and she denies any adverse side effects. She states her thoracic pain has improved with the ablation. No recent changes reported. Harvey and UDS have been reviewed and are compliant. Medication refill and F/u in 2 months. 07/01/2024 Amanada is here today for follow up and medication refills. Complains of right wrist and left side neck pain. Rates her pain a 6 at todays visit. Patient believes wrist pain is related where she has added weights to her exercise routine. Patient encouraged to wear a support brace during exercises. Continues to receive adequate pain relief from the prescribed regimen. Will continue current medications regimen, she denies side effects to the prescribed regimen. She is doing his HEP. Most recent UDS and HARVEY reviewed. Will have her follow up in 2 months. 07/01/2024 cervical radiculopathy (ICD-10 - M54.12) Glendy presents for follow up visit and medication refill. She has cervical spine pain with LUE radiculopathy, as well as rheumatoid arthritis. She is supplementing pain meds with tylenol at night. She is s/p RFA AB RFA L3/L4/L5 with great relief. Today she also reports left knee pain and states that she is using topical applications of Aspercreme plus lidocaine successfully. She is scheduled for a #4 left knee IA injection on 11/01/2023. She is currently taking oxycodone HCl 5mg TID with some relief and she denies any adverse side effects. She states her thoracic pain has improved with the ablation. No recent changes reported. Harvey and UDS have been reviewed and are compliant. Medication refill and F/u in 2 months. 07/01/2024 Amanada is here today for follow up and medication refills. Complains of right wrist and left side neck pain. Rates her pain a 6 at todays visit. Patient believes wrist pain is related where she has added weights to her exercise routine. Patient encouraged to wear a support brace during exercises. Continues to receive adequate pain relief from the prescribed regimen. Will continue current medications regimen, she denies side effects to the prescribed regimen. She is doing his HEP. Most recent AVELS and HARVEY reviewed. Will have her follow up in 2 months. 01/01/2025 Rheumatoid arthritis with rheumatoid factor, unspecified (ICD-10 - M05.9) Glendy presents for follow up visit and medication refill. She has cervical spine pain with LUE radiculopathy, as well as rheumatoid arthritis. She is supplementing pain meds with tylenol at night. She is s/p RFA AB RFA L3/L4/L5 with great relief. Today she also reports left knee pain and states that she is using topical applications of Aspercreme plus lidocaine successfully. She is scheduled for a #4 left knee IA injection on 11/01/2023. She is currently taking oxycodone HCl 5mg TID with some relief and she denies any adverse side effects. She states her thoracic pain has improved with the ablation. No recent changes reported. Harvey and KEVYN have been reviewed and are compliant. Medication refill and F/u in 2 months. 07/01/2024 Romy is here today for follow up and medication refills. Complains of right wrist and left side neck pain. Rates her pain a 6 at todays visit. Patient believes wrist pain is related where she has added weights to her exercise routine. Patient encouraged to wear a support brace during exercises. Continues to receive adequate pain relief from the prescribed regimen. Will continue current medications regimen, she denies side effects to the prescribed regimen. She is doing his HEP. Most recent AVELS and HARVEY reviewed. Will have her follow up in 2 months. 10/31/2024 he patient is a 54-year-old female with a history of rheumatoid arthritis who presents today with primary complaints of chronic cervical neck pain and bilateral wrist discomfort. She describes her pain as aching, burning, and sharp, with a fluctuating intensity and an average pain score of 8/10. The pain is aggravated by activities such as walking and cleaning, and is relieved with rest, heating pad use, massage, and her current medications. She is currently prescribed Oxycodone 5/325mg TID, which provides approximately 50% pain relief for about two hours. She denies any adverse effects from her medications. She also uses adjunctive therapies including celecoxib, cyclobenzaprine, duloxetine, heating pad, and massage as part of her pain management regimen. Her most recent injection was on 11/01/2023 to the left knee, which provided 75% relief for approximately three months. At this time, she declines further injection therapy. We will continue her current opioid and adjunct medication regimen. She is to maintain her home exercise program and conservative measures. Harvey and UDS were reviewed and found to be compliant. The opioid risk assessment is moderate. The patient will follow up in two months for reassessment, or sooner if symptoms worsen. 01/01/2025 54 year old female presents for f/u. pain located left knee. currently taking oxycodone, no side effects to medication. tolerates well, admits this doesn't help the pain other than the one she takes in the morning with the celebrex, and then at night takes tylenol with it and that helps it work better, but by itself it doesn't help at all. hasn't spoke with an MD about this, didn't know she could, so she is requesting to see MD at f/u. harvey and uds reviewed. no changes since last visit. will schedule left knee IA. refill medications and f/u with MD 03/03/2025 Rheumatoid arthritis with rheumatoid factor, unspecified (ICD-10 - M05.9) 03/03/2025 The patient presents to the [facility] office in [place], [place] for an audio-telemedici ne visit. The patient was evaluated by the medical surgical tech and a urine drug screen was obtained [...] Medication refill and F/u in 2 months. 10/31/2024 Rheumatoid arthritis with rheumatoid factor, unspecified (ICD-10 - M05.9) Glendy presents for follow up visit and medication refill. She has cervical spine pain with LUE radiculopathy, as well as rheumatoid arthritis. She is supplementing pain meds with tylenol at night. She is s/p RFA AB RFA L3/L4/L5 with great relief. Today she also reports left knee pain and states that she is using topical applications of Aspercreme plus lidocaine successfully. She is scheduled for a #4 left knee IA injection on 11/01/2023. She is currently taking oxycodone HCl 5mg TID with some relief and she denies any adverse side effects. She states her thoracic pain has improved with the ablation. No recent changes reported. Harvey and UDS have been reviewed and are compliant. Medication refill and F/u in 2 months. 07/01/2024 Romy is here today for follow up and medication refills. Complains of right wrist and left side neck pain. Rates her pain a 6 at todays visit. Patient believes wrist pain is related where she has added weights to her exercise routine. Patient encouraged to wear a support brace during exercises. Continues to receive adequate pain relief from the prescribed regimen. Will continue current medications regimen, she denies side effects to the prescribed regimen. She is doing his HEP. Most recent UDS and HARVEY reviewed. Will have her follow up in 2 months. 10/31/2024 he patient is a 54-year-old female with a history of rheumatoid arthritis who presents today with primary complaints of chronic cervical neck pain and bilateral wrist discomfort. She describes her pain as aching, burning, and sharp, with a fluctuating intensity and an average pain score of 8/10. The pain is aggravated by activities such as walking and cleaning, and is relieved with rest, heating pad use, massage, and her current medications. She is currently prescribed Oxycodone 5/325mg TID, which provides approximately 50% pain relief for about two hours. She denies any adverse effects from her medications. She also uses adjunctive therapies including celecoxib, cyclobenzaprine, duloxetine, heating pad, and massage as part of her pain management regimen. Her most recent injection was on 11/01/2023 to the left knee, which provided 75% relief for approximately three months. At this time, she declines further injection therapy. We will continue her current opioid and adjunct medication regimen. She is to maintain her home exercise program and conservative measures. Harvey and UDS were reviewed and found to be compliant. The opioid risk assessment is moderate. The patient will follow up in two months for reassessment, or sooner if symptoms worsen. 05/01/2024 cervical radiculopathy (ICD-10 - M54.12) Glendy presents for follow up visit and medication refill. She has cervical spine pain with LUE radiculopathy, as well as rheumatoid arthritis. She is supplementing pain meds with tylenol at night. She is s/p RFA AB RFA L3/L4/L5 with great relief. Today she also reports left knee pain and states that she is using topical applications of Aspercreme plus lidocaine successfully. She is scheduled for a #4 left knee IA injection on 11/01/2023. She is currently taking oxycodone HCl 5mg TID with some relief and she denies any adverse side effects. She states her thoracic pain has improved with the ablation. No recent changes reported. Harvey and UDS have been reviewed and are compliant. Medication refill and F/u in 2 months. 05/01/2024 Romy is here today for follow up and medication refills. Complains of lower back and left side neck pain. Rates her pain a 6 at todays visit. Patient reports that she currently on Medrol dose edward that was prescribed by rheumatology. Neck pain symptons slowly resolving from steriods. Continues to receive adequate pain relief from the prescribed regimen. Will continue current medications regimen, she denies side effects to the prescribed regimen. She is doing his HEP. Most recent UDS and HARVEY reviewed. Will have her follow up in 2 months. 05/01/2024 Spondylosis without myelopathy or radiculopathy, lumbar region (ICD-10 - M47.816) Glendy presents for follow up visit and medication refill. She has cervical spine pain with LUE radiculopathy, as well as rheumatoid arthritis. She is supplementing pain meds with tylenol at night. She is s/p RFA AB RFA L3/L4/L5 with great relief. Today she also reports left knee pain and states that she is using topical applications of Aspercreme plus lidocaine successfully. She is scheduled for a #4 left knee IA injection on 11/01/2023. She is currently taking oxycodone HCl 5mg TID with some relief and she denies any adverse side effects. She states her thoracic pain has improved with the ablation. No recent changes reported. Harvey and UDS have been reviewed and are compliant. Medication refill and F/u in 2 months. 05/01/2024 Romy is here today for follow up and medication refills. Complains of lower back and left side neck pain. Rates her pain a 6 at todays visit. Patient reports that she currently on Medrol dose edward that was prescribed by rheumatology. Neck pain symptons slowly resolving from steriods. Continues to receive adequate pain relief from the prescribed regimen. Will continue current medications regimen, she denies side effects to the prescribed regimen. She is doing his HEP. Most recent UDS and HARVEY reviewed. Will have her follow up in 2 months. 10/31/2024 cervical radiculopathy (ICD-10 - M54.12) Glendy presents for follow up visit and medication refill. She has cervical spine pain with LUE radiculopathy, as well as rheumatoid arthritis. She is supplementing pain meds with tylenol at night. She is s/p RFA AB RFA L3/L4/L5 with great relief. Today she also reports left knee pain and states that she is using topical applications of Aspercreme plus lidocaine successfully. She is scheduled for a #4 left knee IA injection on 11/01/2023. She is currently taking oxycodone HCl 5mg TID with some relief and she denies any adverse side effects. She states her thoracic pain has improved with the ablation. No recent changes reported. Harvey and UDS have been reviewed and are compliant. Medication refill and F/u in 2 months. 07/01/2024 Romy is here today for follow up and medication refills. Complains of right wrist and left side neck pain. Rates her pain a 6 at todays visit. Patient believes wrist pain is related where she has added weights to her exercise routine. Patient encouraged to wear a support brace during exercises. Continues to receive adequate pain relief from the prescribed regimen. Will continue current medications regimen, she denies side effects to the prescribed regimen. She is doing his HEP. Most recent UDS and HARVEY reviewed. Will have her follow up in 2 months. 10/31/2024 he patient is a 54-year-old female with a history of rheumatoid arthritis who presents today with primary complaints of chronic cervical neck pain and bilateral wrist discomfort. She describes her pain as aching, burning, and sharp, with a fluctuating intensity and an average pain score of 8/10. The pain is aggravated by activities such as walking and cleaning, and is relieved with rest, heating pad use, massage, and her current medications. She is currently prescribed Oxycodone 5/325mg TID, which provides approximately 50% pain relief for about two hours. She denies any adverse effects from her medications. She also uses adjunctive therapies including celecoxib, cyclobenzaprine, duloxetine, heating pad, and massage as part of her pain management regimen. Her most recent injection was on 11/01/2023 to the left knee, which provided 75% relief for approximately three months. At this time, she declines further injection therapy. We will continue her current opioid and adjunct medication regimen. She is to maintain her home exercise program and conservative measures. Harvey and UDS were reviewed and found to be compliant. The opioid risk assessment is moderate. The patient will follow up in two months for reassessment, or sooner if symptoms worsen. 03/03/2025 cervical radiculopathy (ICD-10 - M54.12) 03/03/2025 The patient presents to the [facility] office in [place], [place] for an audio-telemedici ne visit. The patient was evaluated by the medical surgical tech and a urine drug screen was obtained [...] Medication refill and F/u in 2 months. 01/01/2025 cervical radiculopathy (ICD-10 - M54.12) Glendy presents for follow up visit and medication refill. She has cervical spine pain with LUE radiculopathy, as well as rheumatoid arthritis. She is supplementing pain meds with tylenol at night. She is s/p RFA AB RFA L3/L4/L5 with great relief. Today she also reports left knee pain and states that she is using topical applications of Aspercreme plus lidocaine successfully. She is scheduled for a #4 left knee IA injection on 11/01/2023. She is currently taking oxycodone HCl 5mg TID with some relief and she denies any adverse side effects. She states her thoracic pain has improved with the ablation. No recent changes reported. Harvey and UDS have been reviewed and are compliant. Medication refill and F/u in 2 months. 07/01/2024 Romy is here today for follow up and medication refills. Complains of right wrist and left side neck pain. Rates her pain a 6 at todays visit. Patient believes wrist pain is related where she has added weights to her exercise routine. Patient encouraged to wear a support brace during exercises. Continues to receive adequate pain relief from the prescribed regimen. Will continue current medications regimen, she denies side effects to the prescribed regimen. She is doing his HEP. Most recent UDS and HARVEY reviewed. Will have her follow up in 2 months. 10/31/2024 he patient is a 54-year-old female with a history of rheumatoid arthritis who presents today with primary complaints of chronic cervical neck pain and bilateral wrist discomfort. She describes her pain as aching, burning, and sharp, with a fluctuating intensity and an average pain score of 8/10. The pain is aggravated by activities such as walking and cleaning, and is relieved with rest, heating pad use, massage, and her current medications. She is currently prescribed Oxycodone 5/325mg TID, which provides approximately 50% pain relief for about two hours. She denies any adverse effects from her medications. She also uses adjunctive therapies including celecoxib, cyclobenzaprine, duloxetine, heating pad, and massage as part of her pain management regimen. Her most recent injection was on 11/01/2023 to the left knee, which provided 75% relief for approximately three months. At this time, she declines further injection therapy. We will continue her current opioid and adjunct medication regimen. She is to maintain her home exercise program and conservative measures. Harvey and UDS were reviewed and found to be compliant. The opioid risk assessment is moderate. The patient will follow up in two months for reassessment, or sooner if symptoms worsen. 01/01/2025 54 year old female presents for f/u. pain located left knee. currently taking oxycodone, no side effects to medication. tolerates well, admits this doesn't help the pain other than the one she takes in the morning with the celebrex, and then at night takes tylenol with it and that helps it work better, but by itself it doesn't help at all. hasn't spoke with an MD about this, didn't know she could, so she is requesting to see MD at f/u. harvey and uds reviewed. no changes since last visit. will schedule left knee IA. refill medications and f/u with MD 07/01/2024 Spondylosis without myelopathy or radiculopathy, lumbar region (ICD-10 - M47.816) Glendy presents for follow up visit and medication refill. She has cervical spine pain with LUE radiculopathy, as well as rheumatoid arthritis. She is supplementing pain meds with tylenol at night. She is s/p RFA AB RFA L3/L4/L5 with great relief. Today she also reports left knee pain and states that she is using topical applications of Aspercreme plus lidocaine successfully. She is scheduled for a #4 left knee IA injection on 11/01/2023. She is currently taking oxycodone HCl 5mg TID with some relief and she denies any adverse side effects. She states her thoracic pain has improved with the ablation. No recent changes reported. Harvey and UDS have been reviewed and are compliant. Medication refill and F/u in 2 months. 07/01/2024 Romy is here today for follow up and medication refills. Complains of right wrist and left side neck pain. Rates her pain a 6 at todays visit. Patient believes wrist pain is related where she has added weights to her exercise routine. Patient encouraged to wear a support brace during exercises. Continues to receive adequate pain relief from the prescribed regimen. Will continue current medications regimen, she denies side effects to the prescribed regimen. She is doing his HEP. Most recent UDS and HARVEY reviewed. Will have her follow up in 2 months. 07/01/2024 Other fecal abnormalities (ICD-10 - R19.5) Glendy presents for follow up visit and medication refill. She has cervical spine pain with LUE radiculopathy, as well as rheumatoid arthritis. She is supplementing pain meds with tylenol at night. She is s/p RFA AB RFA L3/L4/L5 with great relief. Today she also reports left knee pain and states that she is using topical applications of Aspercreme plus lidocaine successfully. She is scheduled for a #4 left knee IA injection on 11/01/2023. She is currently taking oxycodone HCl 5mg TID with some relief and she denies any adverse side effects. She states her thoracic pain has improved with the ablation. No recent changes reported. Harvey and UDS have been reviewed and are compliant. Medication refill and F/u in 2 months. 07/01/2024 Romy is here today for follow up and medication refills. Complains of right wrist and left side neck pain. Rates her pain a 6 at todays visit. Patient believes wrist pain is related where she has added weights to her exercise routine. Patient encouraged to wear a support brace during exercises. Continues to receive adequate pain relief from the prescribed regimen. Will continue current medications regimen, she denies side effects to the prescribed regimen. She is doing his HEP. Most recent UDS and HARVEY reviewed. Will have her follow up in 2 months. 01/01/2025 Spondylosis without myelopathy or radiculopathy, lumbar region (ICD-10 - M47.816) Glendy presents for follow up visit and medication refill. She has cervical spine pain with LUE radiculopathy, as well as rheumatoid arthritis. She is supplementing pain meds with tylenol at night. She is s/p RFA AB RFA L3/L4/L5 with great relief. Today she also reports left knee pain and states that she is using topical applications of Aspercreme plus lidocaine successfully. She is scheduled for a #4 left knee IA injection on 11/01/2023. She is currently taking oxycodone HCl 5mg TID with some relief and she denies any adverse side effects. She states her thoracic pain has improved with the ablation. No recent changes reported. Harvey and UDS have been reviewed and are compliant. Medication refill and F/u in 2 months. 07/01/2024 Romy is here today for follow up and medication refills. Complains of right wrist and left side neck pain. Rates her pain a 6 at todays visit. Patient believes wrist pain is related where she has added weights to her exercise routine. Patient encouraged to wear a support brace during exercises. Continues to receive adequate pain relief from the prescribed regimen. Will continue current medications regimen, she denies side effects to the prescribed regimen. She is doing his HEP. Most recent UDS and HARVEY reviewed. Will have her follow up in 2 months. 10/31/2024 he patient is a 54-year-old female with a history of rheumatoid arthritis who presents today with primary complaints of chronic cervical neck pain and bilateral wrist discomfort. She describes her pain as aching, burning, and sharp, with a fluctuating intensity and an average pain score of 8/10. The pain is aggravated by activities such as walking and cleaning, and is relieved with rest, heating pad use, massage, and her current medications. She is currently prescribed Oxycodone 5/325mg TID, which provides approximately 50% pain relief for about two hours. She denies any adverse effects from her medications. She also uses adjunctive therapies including celecoxib, cyclobenzaprine, duloxetine, heating pad, and massage as part of her pain management regimen. Her most recent injection was on 11/01/2023 to the left knee, which provided 75% relief for approximately three months. At this time, she declines further injection therapy. We will continue her current opioid and adjunct medication regimen. She is to maintain her home exercise program and conservative measures. Harvey and UDS were reviewed and found to be compliant. The opioid risk assessment is moderate. The patient will follow up in two months for reassessment, or sooner if symptoms worsen. 01/01/2025 54 year old female presents for f/u. pain located left knee. currently taking oxycodone, no side effects to medication. tolerates well, admits this doesn't help the pain other than the one she takes in the morning with the celebrex, and then at night takes tylenol with it and that helps it work better, but by itself it doesn't help at all. hasn't spoke with an MD about this, didn't know she could, so she is requesting to see MD at f/u. harvey and avels reviewed. no changes since last visit. will schedule left knee IA. refill medications and f/u with MD 03/03/2025 Spondylosis without myelopathy or radiculopathy, lumbar region (ICD-10 - M47.816) 03/03/2025 The patient presents to the [facility] office in [place], [place] for an audio-telemedici ne visit. The patient was evaluated by the medical surgical tech and a urine drug screen was obtained [...] Medication refill and F/u in 2 months. 10/31/2024 Spondylosis without myelopathy or radiculopathy, lumbar region (ICD-10 - M47.816) Glendy presents for follow up visit and medication refill. She has cervical spine pain with LUE radiculopathy, as well as rheumatoid arthritis. She is supplementing pain meds with tylenol at night. She is s/p RFA AB RFA L3/L4/L5 with great relief. Today she also reports left knee pain and states that she is using topical applications of Aspercreme plus lidocaine successfully. She is scheduled for a #4 left knee IA injection on 11/01/2023. She is currently taking oxycodone HCl 5mg TID with some relief and she denies any adverse side effects. She states her thoracic pain has improved with the ablation. No recent changes reported. Harvey and UDS have been reviewed and are compliant. Medication refill and F/u in 2 months. 07/01/2024 Romy is here today for follow up and medication refills. Complains of right wrist and left side neck pain. Rates her pain a 6 at todays visit. Patient believes wrist pain is related where she has added weights to her exercise routine. Patient encouraged to wear a support brace during exercises. Continues to receive adequate pain relief from the prescribed regimen. Will continue current medications regimen, she denies side effects to the prescribed regimen. She is doing his HEP. Most recent UDS and HARVEY reviewed. Will have her follow up in 2 months. 10/31/2024 he patient is a 54-year-old female with a history of rheumatoid arthritis who presents today with primary complaints of chronic cervical neck pain and bilateral wrist discomfort. She describes her pain as aching, burning, and sharp, with a fluctuating intensity and an average pain score of 8/10. The pain is aggravated by activities such as walking and cleaning, and is relieved with rest, heating pad use, massage, and her current medications. She is currently prescribed Oxycodone 5/325mg TID, which provides approximately 50% pain relief for about two hours. She denies any adverse effects from her medications. She also uses adjunctive therapies including celecoxib, cyclobenzaprine, duloxetine, heating pad, and massage as part of her pain management regimen. Her most recent injection was on 11/01/2023 to the left knee, which provided 75% relief for approximately three months. At this time, she declines further injection therapy. We will continue her current opioid and adjunct medication regimen. She is to maintain her home exercise program and conservative measures. Harvey and UDS were reviewed and found to be compliant. The opioid risk assessment is moderate. The patient will follow up in two months for reassessment, or sooner if symptoms worsen. 05/01/2024 Other fecal abnormalities (ICD-10 - R19.5) Glendy presents for follow up visit and medication refill. She has cervical spine pain with LUE radiculopathy, as well as rheumatoid arthritis. She is supplementing pain meds with tylenol at night. She is s/p RFA AB RFA L3/L4/L5 with great relief. Today she also reports left knee pain and states that she is using topical applications of Aspercreme plus lidocaine successfully. She is scheduled for a #4 left knee IA injection on 11/01/2023. She is currently taking oxycodone HCl 5mg TID with some relief and she denies any adverse side effects. She states her thoracic pain has improved with the ablation. No recent changes reported. Harvey and UDS have been reviewed and are compliant. Medication refill and F/u in 2 months. 05/01/2024 Romy is here today for follow up and medication refills. Complains of lower back and left side neck pain. Rates her pain a 6 at todays visit. Patient reports that she currently on Medrol dose edward that was prescribed by rheumatology. Neck pain symptons slowly resolving from steriods. Continues to receive adequate pain relief from the prescribed regimen. Will continue current medications regimen, she denies side effects to the prescribed regimen. She is doing his HEP. Most recent UDS and HARVEY reviewed. Will have her follow up in 2 months. 05/01/2024 Bilateral primary osteoarthritis of knee (ICD-10 - M17.0) Glendy presents for follow up visit and medication refill. She has cervical spine pain with LUE radiculopathy, as well as rheumatoid arthritis. She is supplementing pain meds with tylenol at night. She is s/p RFA AB RFA L3/L4/L5 with great relief. Today she also reports left knee pain and states that she is using topical applications of Aspercreme plus lidocaine successfully. She is scheduled for a #4 left knee IA injection on 11/01/2023. She is currently taking oxycodone HCl 5mg TID with some relief and she denies any adverse side effects. She states her thoracic pain has improved with the ablation. No recent changes reported. Harvey and UDS have been reviewed and are compliant. Medication refill and F/u in 2 months. 05/01/2024 Romy is here today for follow up and medication refills. Complains of lower back and left side neck pain. Rates her pain a 6 at todays visit. Patient reports that she currently on Medrol dose edward that was prescribed by rheumatology. Neck pain symptons slowly resolving from steriods. Continues to receive adequate pain relief from the prescribed regimen. Will continue current medications regimen, she denies side effects to the prescribed regimen. She is doing his HEP. Most recent UDS and HARVEY reviewed. Will have her follow up in 2 months. 10/31/2024 Other fecal abnormalities (ICD-10 - R19.5) Glendy presents for follow up visit and medication refill. She has cervical spine pain with LUE radiculopathy, as well as rheumatoid arthritis. She is supplementing pain meds with tylenol at night. She is s/p RFA AB RFA L3/L4/L5 with great relief. Today she also reports left knee pain and states that she is using topical applications of Aspercreme plus lidocaine successfully. She is scheduled for a #4 left knee IA injection on 11/01/2023. She is currently taking oxycodone HCl 5mg TID with some relief and she denies any adverse side effects. She states her thoracic pain has improved with the ablation. No recent changes reported. Harvey and UDS have been reviewed and are compliant. Medication refill and F/u in 2 months. 07/01/2024 Romy is here today for follow up and medication refills. Complains of right wrist and left side neck pain. Rates her pain a 6 at todays visit. Patient believes wrist pain is related where she has added weights to her exercise routine. Patient encouraged to wear a support brace during exercises. Continues to receive adequate pain relief from the prescribed regimen. Will continue current medications regimen, she denies side effects to the prescribed regimen. She is doing his HEP. Most recent UDS and HARVEY reviewed. Will have her follow up in 2 months. 10/31/2024 he patient is a 54-year-old female with a history of rheumatoid arthritis who presents today with primary complaints of chronic cervical neck pain and bilateral wrist discomfort. She describes her pain as aching, burning, and sharp, with a fluctuating intensity and an average pain score of 8/10. The pain is aggravated by activities such as walking and cleaning, and is relieved with rest, heating pad use, massage, and her current medications. She is currently prescribed Oxycodone 5/325mg TID, which provides approximately 50% pain relief for about two hours. She denies any adverse effects from her medications. She also uses adjunctive therapies including celecoxib, cyclobenzaprine, duloxetine, heating pad, and massage as part of her pain management regimen. Her most recent injection was on 11/01/2023 to the left knee, which provided 75% relief for approximately three months. At this time, she declines further injection therapy. We will continue her current opioid and adjunct medication regimen. She is to maintain her home exercise program and conservative measures. Harvey and UDS were reviewed and found to be compliant. The opioid risk assessment is moderate. The patient will follow up in two months for reassessment, or sooner if symptoms worsen. 03/03/2025 Other fecal abnormalities (ICD-10 - R19.5) 03/03/2025 The patient presents to the [facility] office in [place], [place] for an audio-telemedici ne visit. The patient was evaluated by the medical surgical tech and a urine drug screen was obtained [...] Medication refill and F/u in 2 months. 01/01/2025 Other fecal abnormalities (ICD-10 - R19.5) Glendy presents for follow up visit and medication refill. She has cervical spine pain with LUE radiculopathy, as well as rheumatoid arthritis. She is supplementing pain meds with tylenol at night. She is s/p RFA AB RFA L3/L4/L5 with great relief. Today she also reports left knee pain and states that she is using topical applications of Aspercreme plus lidocaine successfully. She is scheduled for a #4 left knee IA injection on 11/01/2023. She is currently taking oxycodone HCl 5mg TID with some relief and she denies any adverse side effects. She states her thoracic pain has improved with the ablation. No recent changes reported. Harvey and UDS have been reviewed and are compliant. Medication refill and F/u in 2 months. 07/01/2024 Romy is here today for follow up and medication refills. Complains of right wrist and left side neck pain. Rates her pain a 6 at todays visit. Patient believes wrist pain is related where she has added weights to her exercise routine. Patient encouraged to wear a support brace during exercises. Continues to receive adequate pain relief from the prescribed regimen. Will continue current medications regimen, she denies side effects to the prescribed regimen. She is doing his HEP. Most recent UDS and HARVEY reviewed. Will have her follow up in 2 months. 10/31/2024 he patient is a 54-year-old female with a history of rheumatoid arthritis who presents today with primary complaints of chronic cervical neck pain and bilateral wrist discomfort. She describes her pain as aching, burning, and sharp, with a fluctuating intensity and an average pain score of 8/10. The pain is aggravated by activities such as walking and cleaning, and is relieved with rest, heating pad use, massage, and her current medications. She is currently prescribed Oxycodone 5/325mg TID, which provides approximately 50% pain relief for about two hours. She denies any adverse effects from her medications. She also uses adjunctive therapies including celecoxib, cyclobenzaprine, duloxetine, heating pad, and massage as part of her pain management regimen. Her most recent injection was on 11/01/2023 to the left knee, which provided 75% relief for approximately three months. At this time, she declines further injection therapy. We will continue her current opioid and adjunct medication regimen. She is to maintain her home exercise program and conservative measures. Harvey and UDS were reviewed and found to be compliant. The opioid risk assessment is moderate. The patient will follow up in two months for reassessment, or sooner if symptoms worsen. 01/01/2025 54 year old female presents for f/u. pain located left knee. currently taking oxycodone, no side effects to medication. tolerates well, admits this doesn't help the pain other than the one she takes in the morning with the celebrex, and then at night takes tylenol with it and that helps it work better, but by itself it doesn't help at all. hasn't spoke with an MD about this, didn't know she could, so she is requesting to see MD at f/u. harvey and kevyn reviewed. no changes since last visit. will schedule left knee IA. refill medications and f/u with MD 07/01/2024 Bilateral primary osteoarthritis of knee (ICD-10 - M17.0) Glendy presents for follow up visit and medication refill. She has cervical spine pain with LUE radiculopathy, as well as rheumatoid arthritis. She is supplementing pain meds with tylenol at night. She is s/p RFA AB RFA L3/L4/L5 with great relief. Today she also reports left knee pain and states that she is using topical applications of Aspercreme plus lidocaine successfully. She is scheduled for a #4 left knee IA injection on 11/01/2023. She is currently taking oxycodone HCl 5mg TID with some relief and she denies any adverse side effects. She states her thoracic pain has improved with the ablation. No recent changes reported. Harvey and KEVYN have been reviewed and are compliant. Medication refill and F/u in 2 months. 07/01/2024 Romy is here today for follow up and medication refills. Complains of right wrist and left side neck pain. Rates her pain a 6 at todays visit. Patient believes wrist pain is related where she has added weights to her exercise routine. Patient encouraged to wear a support brace during exercises. Continues to receive adequate pain relief from the prescribed regimen. Will continue current medications regimen, she denies side effects to the prescribed regimen. She is doing his HEP. Most recent KEVYN and HARVEY reviewed. Will have her follow up in 2 months. 03/03/2025 Bilateral primary osteoarthritis of knee (ICD-10 - M17.0) 03/03/2025 The patient presents to the [facility] office in [place], [place] for an audio-telemedici ne visit. The patient was evaluated by the medical surgical tech and a urine drug screen was obtained [...] Medication refill and F/u in 2 months. 01/01/2025 Bilateral primary osteoarthritis of knee (ICD-10 - M17.0) Glendy presents for follow up visit and medication refill. She has cervical spine pain with LUE radiculopathy, as well as rheumatoid arthritis. She is supplementing pain meds with tylenol at night. She is s/p RFA AB RFA L3/L4/L5 with great relief. Today she also reports left knee pain and states that she is using topical applications of Aspercreme plus lidocaine successfully. She is scheduled for a #4 left knee IA injection on 11/01/2023. She is currently taking oxycodone HCl 5mg TID with some relief and she denies any adverse side effects. She states her thoracic pain has improved with the ablation. No recent changes reported. Harvey and UDS have been reviewed and are compliant. Medication refill and F/u in 2 months. 07/01/2024 Romy is here today for follow up and medication refills. Complains of right wrist and left side neck pain. Rates her pain a 6 at todays visit. Patient believes wrist pain is related where she has added weights to her exercise routine. Patient encouraged to wear a support brace during exercises. Continues to receive adequate pain relief from the prescribed regimen. Will continue current medications regimen, she denies side effects to the prescribed regimen. She is doing his HEP. Most recent UDS and HARVEY reviewed. Will have her follow up in 2 months. 10/31/2024 he patient is a 54-year-old female with a history of rheumatoid arthritis who presents today with primary complaints of chronic cervical neck pain and bilateral wrist discomfort. She describes her pain as aching, burning, and sharp, with a fluctuating intensity and an average pain score of 8/10. The pain is aggravated by activities such as walking and cleaning, and is relieved with rest, heating pad use, massage, and her current medications. She is currently prescribed Oxycodone 5/325mg TID, which provides approximately 50% pain relief for about two hours. She denies any adverse effects from her medications. She also uses adjunctive therapies including celecoxib, cyclobenzaprine, duloxetine, heating pad, and massage as part of her pain management regimen. Her most recent injection was on 11/01/2023 to the left knee, which provided 75% relief for approximately three months. At this time, she declines further injection therapy. We will continue her current opioid and adjunct medication regimen. She is to maintain her home exercise program and conservative measures. Harvey and UDS were reviewed and found to be compliant. The opioid risk assessment is moderate. The patient will follow up in two months for reassessment, or sooner if symptoms worsen. 01/01/2025 54 year old female presents for f/u. pain located left knee. currently taking oxycodone, no side effects to medication. tolerates well, admits this doesn't help the pain other than the one she takes in the morning with the celebrex, and then at night takes tylenol with it and that helps it work better, but by itself it doesn't help at all. hasn't spoke with an MD about this, didn't know she could, so she is requesting to see MD at f/u. harvey and avels reviewed. no changes since last visit. will schedule left knee IA. refill medications and f/u with MD 10/31/2024 Bilateral primary osteoarthritis of knee (ICD-10 - M17.0) Glendy presents for follow up visit and medication refill. She has cervical spine pain with LUE radiculopathy, as well as rheumatoid arthritis. She is supplementing pain meds with tylenol at night. She is s/p RFA AB RFA L3/L4/L5 with great relief. Today she also reports left knee pain and states that she is using topical applications of Aspercreme plus lidocaine successfully. She is scheduled for a #4 left knee IA injection on 11/01/2023. She is currently taking oxycodone HCl 5mg TID with some relief and she denies any adverse side effects. She states her thoracic pain has improved with the ablation. No recent changes reported. Harvey and UDS have been reviewed and are compliant. Medication refill and F/u in 2 months. 07/01/2024 Romy is here today for follow up and medication refills. Complains of right wrist and left side neck pain. Rates her pain a 6 at todays visit. Patient believes wrist pain is related where she has added weights to her exercise routine. Patient encouraged to wear a support brace during exercises. Continues to receive adequate pain relief from the prescribed regimen. Will continue current medications regimen, she denies side effects to the prescribed regimen. She is doing his HEP. Most recent UDS and HARVEY reviewed. Will have her follow up in 2 months. 10/31/2024 he patient is a 54-year-old female with a history of rheumatoid arthritis who presents today with primary complaints of chronic cervical neck pain and bilateral wrist discomfort. She describes her pain as aching, burning, and sharp, with a fluctuating intensity and an average pain score of 8/10. The pain is aggravated by activities such as walking and cleaning, and is relieved with rest, heating pad use, massage, and her current medications. She is currently prescribed Oxycodone 5/325mg TID, which provides approximately 50% pain relief for about two hours. She denies any adverse effects from her medications. She also uses adjunctive therapies including celecoxib, cyclobenzaprine, duloxetine, heating pad, and massage as part of her pain management regimen. Her most recent injection was on 11/01/2023 to the left knee, which provided 75% relief for approximately three months. At this time, she declines further injection therapy. We will continue her current opioid and adjunct medication regimen. She is to maintain her home exercise program and conservative measures. Harvey and UDS were reviewed and found to be compliant. The opioid risk assessment is moderate. The patient will follow up in two months for reassessment, or sooner if symptoms worsen. Plan Of Treatment Pending Test Test Name Order Date Urine Test LCMS Definitive 09/03/2024 Urine Test LCMS Definitive 11/03/2024 Urine Test LCMS Definitive 03/03/2025 Next Appt Details Provider Name:Akash gutierrez, 04/28/2025 11:30:00 AM, [address] [facility], [place] [address], [place], [address], Insurance Providers Payer Name Payer Address Payer Phone Subscriber Number Group Number Insured Name Patient Relationship to Insured Coverage Start Date Coverage End Date [employer] Medicare [address] [place] [phone] [id number] Agueda Mayaanda Self - patient is the insured 5 Medical (General) History Medical History History ICD Code Depression - 2016/ managed by Dr. Alma Fowler RA - 2010/ managed by Kylah Rdz APR N HTN diagnosed in [address] Marcie duran Surgical History Surgery Date(Month/Year) C Section / [facility] / 3 day stay 1985 Gallbladder / [facility] / (OP) 1995 colonoscopy / [facility] / (OP) 0 07/05/2020 Cataract Extraction / [facility] eye [facility] urgery / (OP) 2019 [facility] 2017 Hospitalization History Reason Date(Month/Year)
--- OUTSIDE RECORDS SUMMARY | 2025-04-22 19:45 | XMS_ITS | Encounter Summary ---
Author Organization [facility] Address [address] [place] [address] Care Team Providers Care Health Professional Name Role Phone Azeb Tavares Primary Care Provider Encounter Details Date Type Department Care Team (Late Contact Info) Description 09/26/2024 Results Follow-Up [facility] RHEUMATOLOGY [address] [address] Joseph Gutierrez, VALUE STREAM COACH [address] [address] Social History Tobacco Use Types Packs/Day Years [...] Description 05/27/2025 9:30 AM EST Office Visit [facility] RHE[facility] [address] [address] Joseph Gutierrez, VALUE STREAM COACH [address] [id number] 09/21/2025 9:30 AM EDT Office Visit [facility] RHEUMATOLOGY [address] [place] [address] Gabino Burroughs MD [address] [facility] [address] [place], [place] [id number] documented as of this encounter Goals Goal [...] on filedocumented in this encounter Care Teams Health Professional Relationship Specialty Start Date End Date Azeb Tavares PA [address] [place] [address] PCP - General Physician Senior Solutions Engineer 06/18/24 documented as of this encounter
--- OUTSIDE RECORDS SUMMARY | 2025-04-22 19:45 | XMS_ITS ---
Author Organization [facility] Address [address] [place] [address] Care Team Providers Care Baby Stroller Rental Clerk Name Role Phone Azeb Tavares Primary Care Provider [phone] Rheumatology Status:Enrolled (Active) Start date:03/07/2024 Enrollment date:05/28/2024 Enrollment reason:New start at Current support & services provided:[facility] Disp[facility] Linked medications:Tofacitinib Citrate (Active) Linked problems:Seropositive rheumatoid arthritis (Active) Continued Care and Services Coordination
== END 2025-04-21 23:59 | disposition home or self-care (01) ==
LOC: LAB.DROPOF 04-22 19:42
PROVIDERS: PCP Physician Assistant; Visit Provider Nurse Practitioner
DX: N39.0 Urinary tract infection, site not specified (principal)
CPT/HCPCS: 87077; 87086